=== PATIENT | female | born 1970 | race Caucasian/White ===

== ENCOUNTER 2023-05-03 09:01 | Outpatient (AMB) | payer OTHER, MEDICAID, SELFPAY ==
--- NOTE | 2023-05-03 09:03 | MHC.PC.OV ---
Vital Signs 05/03/23 09:07 Height 5 ft 5 in Weight 155 lb 2 oz BMI 25.8 BP 120/70 Blood Pressure Location Rt brachial Position Sitting Pulse 80 Pulse Source Pulse Oximeter Pulse Oximetry (%) 97 Oxygen Delivery Method Room Air Intake Visit Reasons: New patient-Diabetes Intake Note: Patient is a new patient here to establish care for Diabetes, Cholesterol, GERD, History of kindney stone, Depression and Anxiety. Transferring care from [facility]. Medical records have not been requested and have not received. Cardiac Cath Technician Required: Yes Cardiac Cath Technician Language: Site Lead Name: Naila (niabiel) Information Interpreted: non-clinical & clinical Manager Program Management: Present Accompanied by: Nephew or Niece Allergies No Known Allergies Allergy (Verified 05/03/23 11:57) Medication List - Last Reconciled 05/03/23 by WARREN Lin atorvastatin 40 mg PO DAILY clonazepam 0.5 mg PO Q6H dapagliflozin propanediol (Farxiga) 10 mg PO DAILY dulaglutide (Trulicity) 0.75 mg (0.5 mL) subcut QWEEK gabapentin 300 mg PO TID gemfibrozil 600 mg PO DAILY insulin aspart U-100 (Novolog FlexPen U-100 Insulin aspart) 30 units (0.3 mL) subcut TID insulin glargine (Lantus Solostar U-100 Insulin) 60 units (0.6 mL) subcut QPM metformin ER 500 mg PO DAILY pantoprazole 40 mg PO DAILY sertraline 50 mg PO DAILY tamsulosin 0.4 mg PO BEDTIME Tobacco use date assessed: 05/03/23 Dental Screening Dental Screen Date: 05/03/23 Did you have a dental visit in the last 12 months?: Yes Did you have a dental problem in the last 6 months where you did not have access to dental care?: No Was dental information given to patient?: Patient has dentist HPI HPI Comments History of Present Illness Details 52-year-old new patient presents today to establish care. Past medical history significant for type 2 diabetes mellitus, hyperlipidemia, peripheral neuropathy, generalized anxiety disorder, depression and GERD. Patient presents today with her adult niece who assisted in interpretation. Declined certified medical and scientific illustrator. Patient reports currently follows with psychiatry at [facility]; Rciki English is her medication provider and she also has a counselor Ivis Prater. Patient currently stable on sertraline 50 mg daily and clonazepam 0.5mg q6hr prn. Colonoscopy: Never completed, agrees to referral. Mammogram: Normal, 02/07/23 Eye exam: Referral entered [facility] Medical History (Updated 05/03/23 @ 09:35 by WARREN Lin) Nephrolithiasis Surgical History History of eye surgery History of cholecystectomy Family History (Updated 05/03/23 @ 09:30 by WARREN Lin) Mother Diabetes Breast cancer Father Diabetes Hypertension Prostate cancer Social History (Updated 05/03/23 @ 09:05 by DEANNA Vilchis) Housing: House (with niece) Alcohol intake: never Patient Tobacco Use Status: Never used Tobacco e-Cigarette/Vaping Use: Never Used Second Hand Smoke Exposure: No service: No Current occupational status: disabled Cognitive needs: No Hearing needs: No Vision needs: No Questionnaire PHQ-9 Over the last 2 weeks, how often have you been bothered by any of the following problems? 1. Little interest or pleasure in doing things: not at all 2. Feeling down, depressed, or hopeless: several days 3. Trouble falling or staying asleep, or sleeping too much: several days 4. Feeling tired or having little energy: several days 5. Poor appetite or overeating: not at all 6. Feeling bad about yourself - or that you are a failure or have let yourself or your family down: not at all 7. Trouble concentrating on things, such as reading the newspaper or watching television: not at all 8. Moving or speaking so slowly that other people could have noticed. Or the opposite - being so fidgety or restless that you have been moving around a lot more than usual: not at all 9. Thoughts that you would be better off or of hurting yourself in some way: not at all Total score: 3 Depression Screening Interpretation: Positive Depression Screening Follow-up: In treatment Depression Screening Done: Yes 15330 - PHQ-9 Billing: Yes Source: Developed by Drs. Ricky Castillo, Mai Aguilar, Huey Castillo and colleagues, with an educational bryon from [employer]. Thrive Questionnaire Date Thrive assessed: 05/03/23 I am a: Patient What is your living situation today?: I have a steady place to live Within the past 12 months, did the food you bought not last and you didn't have the money to get more?: Never true Within the past 12 months, did you worry whether your food would run out before you got money to buy more?: Never true Do you have trouble paying for medicines?: No Do you have trouble getting transportation to medical appointments?: No Do you have trouble paying your heating and electricity bill?: No Do you have trouble taking care of your child, family member or friend?: No Do you have trouble with day-to-day activities such as bathing, preparing meals, shopping, managing finances, etc.?: No Are you currently unemployed and looking for a job?: No Are you interested in more education?: No Currently or been in a relationship where the following occur: no concerns reported AUDIT C Alcohol Use Questionnaire (AUDIT-C) 1. How often do you have a drink containing alcohol?: Never Total Score: 0 JOSE MANUEL-7 AMB Questionnaire JOSE MANUEL-7 Date JOSE MANUEL - 7 assessed: 05/03/23 Feeling nervous, anxious, or on edge: 3 = Nearly every day Not being able to stop or control worryin = Not at all Worrying too much about different things: 0 = Not at all Trouble relaxin = Several days Being so restless that it is hard to sit still: 1 = Several days Becoming easily annoyed or irritable: 1 = Several days Feeling afraid as if something awful might happen: 0 = Not at all Total JOSE MANUEL-7 score (0-4 normal; 5-9 mild; 10-14 moderate; 15-21 severe): 6 Source: Developed by Drs. Ricky Castillo, Mai Aguilar, Huey Castillo and colleagues, with an educational bryon from [employer]. JOSE MANUEL-7 Assessment Billing JOSE MANUEL-7 Assessment Tool: JOSE MANUEL-7 Assessment 23560 Review of Systems Const Denies chills, Denies fatigue, Denies fever(s) and Denies poor appetite Eyes Denies no additional complaints ENT Reports Normal hearing present Card Denies chest pain, Denies syncope, Denies rapid heart rate and Denies dyspnea Resp Denies cough and Denies dyspnea GI Denies change in stool character, Denies constipation, Denies diarrhea, Denies nausea and Denies vomiting Denies urinary frequency, Denies dysuria and Denies urinary urgency Neuro Reports Normal hearing present, Denies confusion and Denies syncope Psych Denies confusion Endo Denies fatigue Physical exam (Primary Care) Vital Signs: Last Vital Signs Pulse 80 05/03/23 09:07 BP 120/70 05/03/23 09:07 Pulse Ox 97 05/03/23 09:07 Oxygen Delivery Method Room Air 05/03/23 09:07 BMI result Body Mass Index 25.8 Tobacco/Smoking Status: Tobacco use Status Tobacco use date assessed 05/03/23 05/03/23 09:06 Patient Tobacco Use Status Never used Tobacco 05/03/23 09:06 e-Cigarette/Vaping Use Never Used 05/03/23 09:06 PHQ-9: PHQ-9 Score PHQ-9: Total score 3 05/03/23 12:00 Depression Screening Interpretation: Positive Depression Screening Follow-up: In treatment Thrive Assessment: Date of Thrive Assessment Date Thrive assessed 05/03/23 05/03/23 09:06 Currently or been in a relationship where the following occur: no concerns reported Const General: No confusion Orientation/consciousness: No confusion HENMT Head: Yes normocephalic and Yes atraumatic Eyes Conjunctivae: conjunctivae normal Chest Chest palpation & inspection: normal inspection of the chest Resp Effort & Inspection: normal respiratory effort Auscultation: clear to auscultation bilaterally, no crackles, no rhonchi and no wheezes Cardio Rate: regular rate Rhythm: regular rhythm Heart sounds: S1 normal heart sound present and S2 normal heart sound present GI Inspection: Yes normal to inspection Neuro General: No confusion Cranial nerves: Yes Normal hearing present Extrem General: No edema Office Procedures Flu Questionnaire Does the patient have a severe egg allergy?: No Does the patient have severe life threatening allergies?: No Does the patient have a fever or illness today?: No Has the patient ever had Guillain-[place]u Syndrome?: No Has the patient ever had any past reaction to a flu shot?: No Immunizations flu vacc [id number] 6mos up(PF) 60 mcg(15 mcgx4)/0.5 mL IM syringe Performing Provider: WARREN Lin [facility] Administered by: DEANNA Vilchis on 05/03/23 09:23 Dose Route Admin Location Dispensed Lot Number Expiration Date NDC Cloth Mender 0.5 mL IM Right Deltoid 0.5 mL [id number] 01/22/24 23426-895-11 [employer] VIS Given Date VIS Provided VIS Publication Date 05/03/23 Single Vaccine 21 Eligibility Eligibility Date Funding Source Not [facility] Eligible 05/03/23 Private Assessment and Plan Assessment & Plan (1) Type 2 diabetes mellitus: Code(s): E11.9 - Type 2 diabetes mellitus without complications Plan: Continue on Trulicity 0.75 mg q.week, NovoLog 30 units t.i.d. and Lantus 60 units q.p.m., metformin 500 mg daily. Hemoglobin A1c and fasting glucose ordered. Patient educated to decrease the amount of carbohydrate intake such as pasta, bread, rice and potatoes are all sugar in addition to the sweet stuff. Remember that fruits are good but they also have sugar. (2) Hypercholesteremia: Code(s): E78.00 - Pure hypercholesterolemia, unspecified Plan: Continue on atorvastatin 40 mg daily. ?Avoid fried foods, chicken skin, eggs, butter,margarine, pastries and?? red meat. (3) Depression: Code(s): F32.A - Depression, unspecified Plan: Continue to follow with psychiatry and counselor. Continue on current medications. (4) Generalized anxiety disorder: Code(s): F41.1 - Generalized anxiety disorder Plan: Continue to follow with psychiatry and counselor. Continue on current medications. (5) Peripheral neuropathy: Code(s): G62.9 - Polyneuropathy, unspecified Plan: Patient reports on gabapentin 300 mg t.i.d. for this Will verify previous records from [place] once received. Plan Follow-up in 3 months Orders: Orders Influenza [id number] Immunization Today Z23 - Encounter for immunization Comprehensive [place]. Panel Fast Today E11.9 - Type 2 diabetes mellitus without complications Lipid Panel Today E78.00 - Pure hypercholesterolemia, unspecified TSH reflex Free T4 Today Z13.29 - Encounter for screening for other suspected endocrine disorder Vitamin D 25-OH Total Today Z13.21 - Encounter for screening for nutritional disorder Hemoglobin A1c Today E11.9 - Type 2 diabetes mellitus without complications Complete Blood Count Auto Diff Today Z13.0 - Encounter for screening for diseases of the blood and blood-forming organs and certain disorders involving the immune mechanism Referrals Gastroenterology Referral Z12.11 - Encounter for screening for malignant neoplasm of colon Ophthalmology Referral E11.9 - Type 2 diabetes mellitus without complications, Z01.00 - Encounter for examination of eyes and vision without abnormal findings Medications: New gemfibrozil 600 mg PO DAILY 30 tabs 0RF insulin aspart U-100 (Novolog FlexPen U-100 Insulin aspart) 30 units (0.3 mL) subcut TID 15 mL 0RF dapagliflozin propanediol (Farxiga) 10 mg PO DAILY 30 tabs 0RF atorvastatin 40 mg PO DAILY 90 tabs 0RF pantoprazole 40 mg PO DAILY 30 ea 0RF insulin glargine (Lantus Solostar U-100 Insulin) 60 units (0.6 mL) subcut QPM 15 mL 0RF tamsulosin 0.4 mg PO BEDTIME 30 caps 0RF metformin ER 500 mg PO DAILY 30 tabs 0RF gabapentin 300 mg PO TID 90 caps 0RF clonazepam 0.5 mg PO Q6H 90 tabs 0RF sertraline 50 mg PO DAILY 30 tabs 0RF dulaglutide (Trulicity) 0.75 mg (0.5 mL) subcut QWEEK 2 mL 0RF Coding Level of Care Code New Pt Level 4 (97135) Diagnoses Type 2 diabetes mellitus E11.9 Hypercholesteremia E78.00 Depression F32.A Generalized anxiety disorder F41.1 Peripheral neuropathy G62.9 Additional Codes JOSE MANUEL-7 Assessment Billing - JOSE MANUEL-7 Assessment Tool: JOSE MANUEL-7 Assessment 29521 ([id number])
[2023-05-03 09:07] VITALS: BP 120/70; PULSE 80; O2SAT 97; BMI 25.8
== END 2023-05-03 09:46 | disposition home or self-care (01) ==
PROVIDERS: PCP Nurse Practitioner Family; Visit Provider Nurse Practitioner Family
DX: E11.42 Type 2 diabetes mellitus with diabetic polyneuropathy (principal); E78.00 Pure hypercholesterolemia, unspecified; F32.A Depression, unspecified; F41.1 Generalized anxiety disorder; Z23 Encounter for immunization; G62.9 Polyneuropathy, unspecified
CPT/HCPCS: 90471; 90686; 99204

== ENCOUNTER 2023-05-05 08:59 | Outpatient (REF) | payer OTHER, MEDICAID, SELFPAY ==
[2023-05-05 09:10] LABS: MANUAL DIFF FLAG NO
[2023-05-05 09:24] LABS: Basophils Absolute Auto 0.1 X10*3/uL (0.0-0.2); Basophils Percent Auto 1.1 % (0-2); Eosinophils Absolute Auto 0.2 X10*3/uL (0.0-0.4); Eosinophils Percent Auto 3.9 % (0-4); Hematocrit 40.8 % (37.0-47.0); Hemoglobin 13.2 g/dl (12.0-16.0); Imm Gran Abs Auto 0.01 X10*3/uL (0.00-0.03); Imm Gran Pct Auto 0.2 % (0.0-0.4); Lymphocytes Absolute Auto 1.9 X10*3/uL (1.2-4.9); Lymphocytes Percent Auto 31.3 % (20-40); Mean Corpuscular HGB Conc 32.4 g/dl (31.0-35.0); Mean Corpuscular Hemoglobin 30.6 pg (27.0-33.0); Mean Corpuscular Volume 94.7 fL (80.0-98.0); Mean Platelet Volume 10.9 fL (9.4-12.3); Monocytes Absolute Auto 0.8 X10*3/uL (0.1-1.2); Monocytes Percent Auto 12.8 % (2-11); Neutrophils Absolute Auto 3.1 x10*3/uL (2.0-8.3); Neutrophils Percent Auto 50.7 % (45-73); Platelet Count 258 X10*3/uL (160-400); Red Blood Count 4.31 X10*6/uL (4.20-5.50); Red Cell Distribution Width 14.1 % (11.0-16.0); White Blood Count 6.2 X10*3/uL (4.8-10.8)
[2023-05-05 09:38] LABS: Estimated Average Glucose 140 mg/dL; Hemoglobin A1c % 6.5 % (<6.0)
[2023-05-05 10:03] LABS: Alanine Aminotransferase 11 U/L (0-31); Albumin Level 3.9 g/dL (3.5-5.0); Alkaline Phosphatase 83 U/L (39-117); Anion Gap 12 (12-20); Aspartate Amino Transferase 15 U/L (5-31); Bilirubin Total 0.2 mg/dL (0.0-1.0); Blood Urea Nitrogen 8 mg/dL (9-16); Calcium 9.1 mg/dL (8.4-10.2); Carbon Dioxide 26 mmol/L (22-29); Chloride 107 mmol/L (96-108); Cholesterol 153 mg/dL (<200); Estimated Glomerular Filt Rate > 60; Glucose Fasting 116 mg/dL (60-99); HDL Cholesterol 56 mg/dL (>40); LDL Cholesterol Calculated 80 mg/dL (<100); Potassium 3.9 mmol/L (3.3-5.1); Sodium 141 mmol/L (135-145); Triglycerides 86 mg/dL (<150)
[2023-05-05 10:24] LABS: TSH reflex Free T4 1.85 uIU/mL (0.32-4.0); Vitamin D 25-OH Total 42.7 ng/mL (>30)
== END 2023-05-05 09:00 | disposition home or self-care (01) ==
LOC: HO.LAB 08:59
PROVIDERS: PCP Nurse Practitioner Family; Visit Provider Nurse Practitioner Family
DX: E78.00 Pure hypercholesterolemia, unspecified (principal); E11.9 Type 2 diabetes mellitus without complications; Z13.21 Encounter for screening for nutritional disorder; Z13.0 Encounter for screening for diseases of the blood and blood-forming organs and certain disorders involving the immune mechanism; Z13.29 Encounter for screening for other suspected endocrine disorder
CPT/HCPCS: 36415; 80053; 80061; 82306; 83036; 84443; 85025

== ENCOUNTER 2023-05-25 13:39 | Outpatient (AMB) | payer OTHER, MEDICAID, SELFPAY ==
--- NOTE | 2023-05-25 13:41 | A.OFFVIS_ITS ---
Intake Vital Signs 05/25/23 13:48 Height 5 ft 6 in Weight 156 lb BMI 25.2 BP 121/62 Blood Pressure Location Lt brachial Position Sitting Pulse 58 Intake Visit Reasons: Colonoscopy Screening Intake Note: Patient new consult for 2nd pre colonoscopy screening. Patient cc: chronic constipation with some blood and acid reflex on and off. Professor Of Sociology Required: Yes Professor Of Sociology Name: Praneeth [phone] Accompanied by: Self / Same As Patient Allergies No Known Allergies Allergy (Verified 05/25/23 13:45) Medication List - Last Reconciled 05/25/23 by Evita Tarango PA-C atorvastatin 40 mg PO DAILY clonazepam 0.5 mg PO Q6H dapagliflozin propanediol (Farxiga) 10 mg PO DAILY dulaglutide (Trulicity) 0.75 mg (0.5 mL) subcut QWEEK gabapentin 300 mg PO TID gemfibrozil 600 mg PO DAILY insulin aspart U-100 (Novolog FlexPen U-100 Insulin aspart) 30 units (0.3 mL) subcut TID insulin glargine (Lantus Solostar U-100 Insulin) 60 units (0.6 mL) subcut QPM metformin ER 500 mg PO DAILY pantoprazole 40 mg PO DAILY sertraline 50 mg PO DAILY tamsulosin 0.4 mg PO BEDTIME HPI HPI Comments History of Present Illness Details A 52 y/o female referred for screening colonoscopy- she had a colonoscopy and EGD in [place] about 10 years ago Constipation for years - intermittent rectal bleeding -seems to have increased however she had been constipated Reasons acid reflux seem to have been better however as well has become worse. Unable to identify anything specific Her appetite is fairly good She has no nausea, vomiting hematemesis fever or chills PFSH Medical History Nephrolithiasis Surgical History History of esophagogastroduodenoscopy (EGD) Hx of colonoscopy History of eye surgery History of cholecystectomy Family History Mother Diabetes Breast cancer Father Diabetes Hypertension Prostate cancer Social History Housing: House (with niece) Alcohol intake: never Patient Tobacco Use Status: Never used Tobacco e-Cigarette/Vaping Use: Never Used Second Hand Smoke Exposure: No service: No Current occupational status: disabled Cognitive needs: No Hearing needs: No Vision needs: No Review of Systems Const All systems reviewed & are unremarkable except as noted in HPI and below Card Denies chest pain and Denies dyspnea Resp Denies dyspnea GI Denies abdominal pain Physical Exam Vital Signs: Last Vital Signs Pulse 58 05/25/23 13:48 BP 121/62 05/25/23 13:48 BMI result Body Mass Index 25.2 Const General: cooperative, healthy appearing, comfortable and no acute distress Orientation/consciousness: patient oriented x3 Limitations: language barrier Eyes Sclerae: sclerae normal Resp Effort & Inspection: normal respiratory effort and able to speak in complete sentences Auscultation: clear to auscultation bilaterally, no rales, no rhonchi and no wheezes Cardio Rate: regular rate Rhythm: regular rhythm Heart sounds: S1 normal heart sound present and S2 normal heart sound present GI Palpation (GI): Soft to palpation and nontender Auscultation: normal bowel sounds Skin General skin exam: no rashes or lesions noted Neuro General: patient oriented x3 Extrem General: Yes full ROM Psych Appearance: grossly normal and well kempt Mental Status: mental status grossly normal Speech and movement: Normal speech and movement present Affect: normal affect Attitude: cooperative Thought process: Normal thought process present Thought content: Normal thought content present Assessment & Plan Assessment & Plan (1) Rectal bleeding: Comment: May be hemorrhoidal for referred Code(s): K62.5 - Hemorrhage of anus and rectum Plan: Colonoscopy High-fiber diet Bowel regimen (2) GERD (gastroesophageal reflux disease): Comment: No early satiety Continue PPI Code(s): K21.9 - Gastro-esophageal reflux disease without esophagitis Plan: Continue PPI Reflux precautions EGD rule out PUD, nonulcer dyspepsia, esophagitis other endoscopic findings to account for her symptoms Plan EGD/ colonoscopy MiraLax Gatorade prep - Mondays (must stop at least 7 days<) Genesis before 1/2 dose insulin Day of no DM meds Orders: Orders EGD/[place] Combo - GI Use Only Today K21.9 - Gastro-esophageal reflux disease without esophagitis, K62.5 - Hemorrhage of anus and rectum Medications: New polyethylene glycol 3350 (Miralax) 17 grams PO DAILY 510 grams 6RF bisacodyl (Dulcolax (bisacodyl)) Day before procedure, prep day Take 4 tablets by mouth upon awakening followed by large glass of water 20 mg (4 x 5 mg) PO ONCE 1 day 4 tabs 0RF colonoscopy prep Z12.11 - Encounter for screening for malignant neoplasm of colon polyethylene glycol 3350 (Miralax) Take as directed by mouth the day before your procedure. 238 grams PO ONCE 1 day PRN 238 grams 0RF laxative effect docusate sodium (Colace) 200 mg (2 x 100 mg) PO BEDTIME 60 caps 5RF hydrocortisone 2.5% (Proctosol HC) 1 appl [place] BEDTIME PRN 30 grams 3RF hemorrhoids Patient Instructions: EGD/ colon HFD- Consistent bowel regimen Avoid straining Hydrocortisone cream Reflux precautions reviewed Continue PPI Reviewed medications No major barriers to understanding were identified Assisted by automotive parts interpreter Coding Level of Care Code New Pt Level 4 (04432) Diagnoses Rectal bleeding K62.5 GERD (gastroesophageal reflux disease) K21.9 Time Spent (min) 30 Comment [id number]
[2023-05-25 13:48] VITALS: BP 121/62; PULSE 58; BMI 25.2
== END 2023-05-25 15:44 | disposition home or self-care (01) ==
PROVIDERS: PCP Nurse Practitioner Family; Visit Provider Physician Assistant
DX: K62.5 Hemorrhage of anus and rectum (principal); K21.9 Gastro-esophageal reflux disease without esophagitis
CPT/HCPCS: 99204

== ENCOUNTER → 2023-05-25 13:39 | Outpatient (BNVA) | payer OTHER, MEDICAID, SELFPAY | PROVIDERS: PCP Nurse Practitioner Family; Visit Provider Physician Assistant ==

== ENCOUNTER 2023-08-10 10:13 | Outpatient (AMB) | payer OTHER, MEDICAID, SELFPAY ==
--- NOTE | 2023-08-10 10:43 | A.OFFVIS_ITS ---
Intake Intake Visit Reasons: Kidney Stones Intake Note: New Patient presents for initial visit for kidney stones Urology Medications: none Blood Thinner: none Engineering Mathematician Required: Yes Engineering Mathematician Name: KIARA MCDANIELSILVIA Accompanied by: Self / Same As Patient Allergies No Known Allergies Allergy (Verified 08/10/23 11:12) Medication List - Last Reconciled 08/10/23 by WARREN Hansen- atorvastatin 40 mg PO DAILY bisacodyl (Dulcolax (bisacodyl)) 20 mg (4 x 5 mg) PO ONCE 1 day clonazepam 0.5 mg PO Q6H dapagliflozin propanediol (Farxiga) 10 mg PO DAILY docusate sodium (Colace) 200 mg (2 x 100 mg) PO BEDTIME dulaglutide (Trulicity) 0.75 mg (0.5 mL) subcut QWEEK gabapentin 300 mg PO TID gemfibrozil 600 mg PO DAILY hydrocortisone 2.5% (Proctosol HC) 1 appl PA BEDTIME PRN insulin aspart U-100 (Novolog FlexPen U-100 Insulin aspart) 30 units (0.3 mL) subcut TID insulin glargine (Lantus Solostar U-100 Insulin) 60 units (0.6 mL) subcut QPM metformin ER 500 mg PO DAILY pantoprazole 40 mg PO DAILY polyethylene glycol 3350 (Miralax) 238 grams PO ONCE PRN 1 day polyethylene glycol 3350 (Miralax) 17 grams PO DAILY sertraline 50 mg PO DAILY HPI HPI Comments History of Present Illness Details Sammy is a very pleasant 52-year-old Armenian-speaking female patient of Dr. Acosta. She has a past medical history of Diabetes, Cholesterol, GERD, nephrolithiasis, Depression and Anxiety. She presents to the office today as a new patient for nephrolithiasis. In discussion with the patient today she reports to be doing and feeling well. She reports a previous history of nephrolithiasis in [place] requiring surgical intervention with lithotripsy as well as stent placement. She currently denies any bothersome urinary issues or concerns. When asked she denies urinary urgency, urinary frequency, incontinence, nocturia, hematuria, dysuria, foul smelling urine, changes to urinary stream, flank pain, fever, and or chills. She is happy with her current voiding parameters. In office urinalysis results reviewed with the patient today. Negative leukocytes positive nitrates. Patient currently denies any UTI like symptoms however does report having experienced intermittent episodes of dysuria over a month ago. When asked she reports to be drinking plenty of water daily. Discussed obtaining renal ultrasound for further assessment evaluation. She otherwise offers no other issues or concerns at this time. [facility] Medical History Nephrolithiasis Surgical History History of esophagogastroduodenoscopy (EGD) Hx of colonoscopy History of eye surgery History of cholecystectomy Family History Mother Diabetes Breast cancer Father Diabetes Hypertension Prostate cancer Social History Housing: House (with niece) Alcohol intake: never Patient Tobacco Use Status: Never used Tobacco e-Cigarette/Vaping Use: Never Used Second Hand Smoke Exposure: No service: No Current occupational status: disabled Cognitive needs: No Hearing needs: No Vision needs: No Review of Systems Const Reports no additional complaints Eyes Reports no additional complaints ENT Reports no additional complaints Card Reports as per HPI Resp Reports no additional complaints GI Reports as per HPI Reports as per HPI Musc Reports no additional complaints Neuro Reports no additional complaints Psych Reports as per HPI Endo Reports as per HPI Ramiro/Lymph Reports no additional complaints Aller/Immun Reports no additional complaints Physical Exam Const General: cooperative, healthy appearing, comfortable, no acute distress, well developed, alert and awake Orientation/consciousness: patient oriented x3 Limitations: no limitations HEENT Head: Yes normal to inspection, Yes normocephalic and Yes atraumatic Ears: hearing grossly normal bilaterally Eyes General: appearance normal, both eyes and all related structures Neck Neck: Yes normal visual inspection and Yes trachea midline Chest Chest palpation & inspection: normal inspection of the chest Resp Effort & Inspection: normal respiratory effort and able to speak in complete sentences Cardio Rate: regular rate GI Inspection: Yes normal to inspection General: Yes no CVA tenderness Back/Spine/Pelvis Back: no CVA tenderness Skin General skin exam: no rashes or lesions noted Neuro General: patient oriented x3 Extrem General: Yes normal to inspection Psych Appearance: grossly normal and well kempt Mental Status: mental status grossly normal Speech and movement: Normal speech and movement present and Clear speech present Affect: normal affect Attitude: cooperative Thought process: Normal thought process present Thought content: Normal thought content present Insight: Fair insight present (Psych) Judgement: Fair judgement present (Psych) Results AMB Urinalysis, Automated UA Leukoctes 0 Toi/uL Last Edit by GleeMaster on 08/10/23 11:16 UA Nitrite Positive Last Edit by GleeMaster on 08/10/23 11:16 UA Urobilinogen 0.2 mg/dL Last Edit by GleeMaster on 08/10/23 11:16 UA Protein 0 mg/dL Last Edit by GleeMaster on 08/10/23 11:16 UA pH 6.0 Last Edit by GleeMaster on 08/10/23 11:16 UA Blood 0 Shadi/uL Last Edit by GleeMaster on 08/10/23 11:16 UA Specific [place] 1.015 Last Edit by GleeMaster on 08/10/23 11:16 UA Ketone Negative Last Edit by GleeMaster on 08/10/23 11:16 UA Bilirubin 0 mg/dL Last Edit by GleeMaster on 08/10/23 11:16 UA Glucose 1000 mg/dL Last Edit by GleeMaster on 08/10/23 11:16 Results Reviewed Results Reviewed: Laboratory Last Values Urine pH (Auto) 6.0 08/10/23 10:51 Specific [place] (Auto) 1.015 08/10/23 10:51 Urine Protein (Auto) 0 mg/dL 08/10/23 10:51 Glucose (UA)(Auto) 1000 mg/dL 08/10/23 10:51 Urine Ketones (Auto) Negative 08/10/23 10:51 Urine Blood (Auto) 0 Shadi/uL 08/10/23 10:51 Urine Nitrite (Auto) Positive 08/10/23 10:51 Urine Bilirubin (Auto) 0 mg/dL 08/10/23 10:51 Urine Urobilinogen (Auto) 0.2 mg/dL 08/10/23 10:51 Leukocyte Esterase (Auto) 0 Toi/uL 08/10/23 10:51 Assessment & Plan Assessment & Plan (1) Nephrolithiasis: Code(s): N20.0 - Calculus of kidney Plan In office urinalysis results reviewed with the patient today; will send for urine culture; will await results for treatment if necessary. Patient currently denies any bothersome urinary issues or concerns. Will obtain renal ultrasound for further assessment evaluation. Discussed at length potential causes of nephrolithiasis Discussed, educated, and stressed the importance of continuing to drink plenty of water daily. Discussed adding 1 oz of lemon juice to water daily. Discussed near future metabolic workup to include 24 hour urine and labs Discussed at length importance of managing diabetes for improvement in overall health and well being. Follow-up in 1-2 months with imaging to be completed prior; or sooner with any issues, concerns, and or questions. Orders: Orders AMB Urinalysis Automated Today Z13.9 - Encounter for screening, unspecified US renal BI Today N20.0 - Calculus of kidney Urine Culture Today N39.0 - Urinary tract infection, site not specified Patient Instructions: The patient had an opportunity to ask questions regarding the treatment plan. All questions were answered. Physical exam, labs, and imaging were discussed and reviewed in detail. As well as risks, benefits, and discussion of treatment choices. No major barriers to understanding were identified. The patient expressed understanding and agreement with the above treatment plan. The patient was made aware they should contact our office by phone for worsening of their current condition, the appearance of new symptoms, or with any questions or concerns. Compliance is encouraged with any medications and follow up testing that is ordered. It is a privilege to be allowed the opportunity to participate in? your urological care.? Again, if you have any questions or concerns If you have any questions or concerns please do not hesitate to contact me. The office is [phone]. This note is constructed using voice recognition software. While every effort has been made to ensure accuracy fire support man errors may have been included. Yours sincerely, LUISA Hansen Coding Level of Care Code New Pt Level 3 (40842) Diagnoses Nephrolithiasis N20.0
== END 2023-08-10 11:27 | disposition home or self-care (01) ==
PROVIDERS: PCP Nurse Practitioner Family; Visit Provider Nurse Practitioner Family
DX: N20.0 Calculus of kidney (principal); Z13.9 Encounter for screening, unspecified
CPT/HCPCS: 99203

== ENCOUNTER 2023-08-10 10:13 | Outpatient (REF) | payer OTHER, MEDICAID, SELFPAY | END 2023-08-10 10:14 | disposition home or self-care (01) | LOC: HO.LNP 10:13 | PROVIDERS: PCP Nurse Practitioner Family; Visit Provider Nurse Practitioner Family | DX: N20.0 Calculus of kidney (principal); N39.0 Urinary tract infection, site not specified | CPT/HCPCS: 81003; 87086; 87088; 87186 ==

== ENCOUNTER 2023-09-08 09:33 | Outpatient (AMB) | payer OTHER, MEDICAID, SELFPAY ==
[2023-09-08 09:35] VITALS: BMI 25.2
--- NOTE | 2023-09-08 09:35 | A.OFFVIS_ITS ---
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 Patient reports that she has had pain for about 5-6 years now. She reports that she fell from a chair while at work, When she went to sit down that chair tipped backwards landing. She was seen while in [facility] and Recieved physical therapy which was not helpful. Pain is bilateral, and radiates down the right arm . Her pain in the spine originates in the c-Spine and travels down the spine, she was recommended to do a block but she was unable to do this due to DM. Her DM is not under control Hx of bilateral Carpal Tunnel Release in 2010 [employer] Required: Yes Allergies No Known Allergies Allergy (Verified 08/10/23 11:12) Medication List - Last Reconciled 09/08/23 by Corrie Tran MD atorvastatin 40 mg PO DAILY bisacodyl (Dulcolax (bisacodyl)) 20 mg (4 x 5 mg) PO ONCE 1 day clonazepam 0.5 mg PO Q6H dapagliflozin propanediol (Farxiga) 10 mg PO DAILY docusate sodium (Colace) 200 mg (2 x 100 mg) PO BEDTIME dulaglutide (Trulicity) 0.75 mg (0.5 mL) subcut QWEEK gabapentin 300 mg PO TID gemfibrozil 600 mg PO DAILY hydrocortisone 2.5% (Proctosol HC) 1 appl IN BEDTIME PRN insulin aspart U-100 (Novolog FlexPen U-100 Insulin aspart) 30 units (0.3 mL) subcut TID insulin glargine (Lantus Solostar U-100 Insulin) 60 units (0.6 mL) subcut QPM metformin ER 500 mg PO DAILY nitrofurantoin macrocrystal 100 mg PO BID 10 days pantoprazole 40 mg PO DAILY polyethylene glycol 3350 (Miralax) 238 grams PO ONCE PRN 1 day polyethylene glycol 3350 (Miralax) 17 grams PO DAILY sertraline 50 mg PO DAILY HPI HPI Comments History of Present Illness Details Past medical history significant for type 2 diabetes mellitus, hyperlipidemia, peripheral neuropathy, generalized anxiety disorder, depression, GERD, retroverted uterus and fibroid. New to [place], came from [place]. History of chronic lower back and neck pain. Patient wants to prioritize discussion/treatment of lower back pain as this is her main concern. Lower back pain, midline then spreads to both legs. Random episodes. On occasion, it feels like legs would give out. After further questioning, pain does go down to her feet, especially when standing/walking. Reports numbness on her legs, but not on the feet. No bladder/bowel changes. Treatment done so far: Advil therapy - in [place], 2020 injection was recommended in [place] but patient did not have any because of poorly controlled DM at that time [facility] Medical History (Updated 09/08/23 @ 10:07 by Corrie Tran MD) Lumbar spinal stenosis Lumbar disc herniation Chronic back pain Nephrolithiasis Surgical History History of esophagogastroduodenoscopy (EGD) Hx of colonoscopy History of eye surgery History of cholecystectomy Family History Mother Diabetes Breast cancer Father Diabetes Hypertension Prostate cancer Social History Housing: House (with niece) Alcohol intake: never Patient Tobacco Use Status: Never used Tobacco e-Cigarette/Vaping Use: Never Used Second Hand Smoke Exposure: No service: No Current occupational status: disabled Cognitive needs: No Hearing needs: No Vision needs: No Review of Systems Const All systems reviewed & are unremarkable except as noted in HPI and below Physical Exam Vital Signs: BMI result Body Mass Index 25.2 Constitutional: Patient appears to be in no acute distress, well nourished and well developed. Patient was appropriately conversant and oriented. Good historian. MSK: No specific abnormalities found on inspection of the spine and all extremities. Tender lumbar paraspinals and SI joint, right worse than left. Lumbar ROM was full. Bilateral hip, knee and ankle ROM WNL. No ligamentous laxity or crepitance. No increased effusion. Straight-leg raising test negative. FABERE test negative. Strength is 5/5 in all muscle groups tested. No increased tone noted. Neurological: Neurologic examination of the upper and lower extremities was nonfocal with intact sensation, muscle stretch reflexes and without focal motor deficits . Metzger?s negative bilaterally. Babinski was down going bilaterally. Clonus was negative. Gait is non-antalgic without loss of balance. Results Reviewed Results Reviewed: I independently reviewed the results of the following: She brought films of lumbar MRI 2018 and 2020 done at [place] - moderate spinal stenosis L4-5 with disc herniation? Report called this pseudobulge . Reports says stable from 2019 to 2020. I reviewed records from the following: PCP Transferred [facility] ? [facility] notes reviewed US 02/13: Retroverted uterus with small uterine fibroid. Assessment & Plan Assessment & Plan (1) Chronic back pain: Code(s): M54.9 - Dorsalgia, unspecified; G89.29 - Other chronic pain Qualifiers: Back pain location: low back pain Back pain laterality: bilateral Sciatica presence: with sciatica Sciatica laterality: bilateral sciatica Qualified Code(s): M54.42 - Lumbago with sciatica, left side; M54.41 - Lumbago with sciatica, right side; G89.29 - Other chronic pain (2) Lumbar disc herniation: Code(s): M51.26 - Other intervertebral disc displacement, lumbar region (3) Lumbar spinal stenosis: Code(s): M48.061 - Spinal stenosis, lumbar region without neurogenic claudication Qualifiers: Neurogenic claudication status: with neurogenic claudication Qualified Code(s): M48.062 - Spinal stenosis, lumbar region with neurogenic claudication Plan Chronic back pain with history of lumbar disc herniation, L4-5, seen on past MRIs done at [place]. No signs of lumbar myelopathy or neurologic deficits on exam today. Discussed treatment options for chronic back pain. We agreed on starting her on physical therapy. Referral placed. We will consider repeat imaging or referral to pain management after she has undergone course of PT, if not better. Assessment and plan discussed with patient, and patient was agreeable. All questions were answered thoroughly. Follow-up 6 weeks. Corrie Tran MD, MARY Board Certified, [place] [employer] and Rehabilitation (ABPMR) Board Certified, [place] Board of Electrodiagnostic Medicine (ABEM) Orders: Orders PT Evaluation and Treatment Today G89.29 - Other chronic pain, M48.061 - Spinal stenosis, lumbar region without neurogenic claudication, M51.26 - Other intervertebral disc displacement, lumbar region, M54.9 - Dorsalgia, unspecified Coding Level of Care Code New Pt Level 4 (20436) Diagnoses Chronic bilateral low back pain with bilateral sciatica M54.42; M54.41; G89.29 Back pain location: low back pain Back pain laterality: bilateral Sciatica presence: with sciatica Sciatica laterality: bilateral sciatica Lumbar disc herniation M51.26 Spinal stenosis of lumbar region with neurogenic claudication M48.062 Neurogenic claudication status: with neurogenic claudication
== END 2023-09-08 10:07 | disposition home or self-care (01) ==
PROVIDERS: PCP Nurse Practitioner Family; Visit Provider Physical Medicine & Rehabilitation
DX: M54.42 Lumbago with sciatica, left side (principal); M54.41 Lumbago with sciatica, right side; G89.29 Other chronic pain; M51.26 Other intervertebral disc displacement, lumbar region; M48.062 Spinal stenosis, lumbar region with neurogenic claudication
CPT/HCPCS: 99204

== ENCOUNTER → 2023-09-08 09:33 | Outpatient (BNVA) | payer OTHER, MEDICAID, SELFPAY | PROVIDERS: PCP Nurse Practitioner Family; Visit Provider Physical Medicine & Rehabilitation ==

== ENCOUNTER 2023-09-14 12:47 | Outpatient (REF) | payer OTHER, MEDICAID, SELFPAY ==
--- NOTE | ~2023-09-14 | US_ITS ---
EXAMINATION: US RETROPERITONEAL LIMITED (RENAL ONLY) CLINICAL INFORMATION: Calculus of kidney. COMPARISON: None available. TECHNIQUE: Real-time imaging of the kidneys. FINDINGS: RIGHT KIDNEY: 10.2 x 5.51 x 5.05 cm (SAG x AP x TRV). The kidney is normal in size, contour, and echogenicity. Renal cortical thickness is normal. There is an echogenic focus measuring 9 mm in the mid right kidney with shadowing, consistent with a nonobstructing calculus. No focal parenchymal lesions or hydronephrosis. LEFT KIDNEY: 11.3 x 5.39 x 4.24 cm (SAG x AP x TRV). The kidney is normal in size, contour, and echogenicity. Renal cortical thickness is normal. No calculi or focal parenchymal lesions. No hydronephrosis. US/US renal BI IMPRESSION: Nonobstructing 9 mm right renal calculus.
== END 2023-09-14 12:48 | disposition home or self-care (01) ==
LOC: HO.US 12:47
PROVIDERS: PCP Nurse Practitioner Family; Visit Provider Nurse Practitioner Family
DX: N20.0 Calculus of kidney (principal)
CPT/HCPCS: 76775

== ENCOUNTER 2023-09-21 10:03 | Day surgery (SDC) | payer OTHER, MEDICAID, SELFPAY ==
--- NOTE | 2023-09-20 12:10 | HO.ANESPROP2 ---
Documented by User: Nancy Arambula NP 09/20/23 12:12 HPI - Anesthesia Eval Consult details Narrative: 52yo F for Upper Endoscopy and Colonoscopy Anesthesia Pre-Procedure Meds Is the patient on any of the following meds?: Dulaglutide (Trulicity) and Any other SGL-1 drugs or drugs that delay gastric emptying (dapagliflozin) PMFSH Active Problems Active Problems: All Active Problems (Updated 09/08/23 @ 10:07 by Corrie Tran MD) Lumbar spinal stenosis (Acute) Lumbar disc herniation (Acute) Chronic back pain (Acute) Cervical cancer screening (Acute) Nephrolithiasis (Acute) Rectal bleeding (Acute) Hypercholesteremia (Acute) Depression (Acute) Generalized anxiety disorder (Acute) Peripheral neuropathy (Acute) Type 2 diabetes mellitus (Acute) GERD (gastroesophageal reflux disease) (Acute) Past Medical History Medical History Hypercholesteremia Depression Generalized anxiety disorder Peripheral neuropathy Type 2 diabetes mellitus GERD (gastroesophageal reflux disease) Lumbar spinal stenosis Lumbar disc herniation Chronic back pain Nephrolithiasis Family History Family History Mother Diabetes Breast cancer Father Diabetes Hypertension Prostate cancer Surgical History Surgical History History of esophagogastroduodenoscopy (EGD) Hx of colonoscopy History of eye surgery History of cholecystectomy Social History Social History Housing: House (with niece) Alcohol intake: never Patient Tobacco Use Status: Never used Tobacco e-Cigarette/Vaping Use: Never Used Second Hand Smoke Exposure: No Advance Directives: No Advance Directives Information Provided: Yes service: No Current occupational status: disabled Cognitive needs: No Hearing needs: No Vision needs: No Meds Allergies Allergy/AdvReac Type Severity Reaction Status Date / Time No Known Allergies Allergy Verified 08/10/23 11:12 Exam Pertinent Lab Results Pertinent Lab Results: Laboratory Tests 05/05/23 09:09 WBC 6.2 Hgb 13.2 Hct 40.8 Plt Count 258 Sodium 141 Potassium 3.9 Chloride 107 Carbon Dioxide 26 BUN 8 L Creatinine 0.73 Assessment and Plan Assessment Anesthesia Assessment: Chart Reviewed Documented by User: Araceli Hawkins MD 09/21/23 10:38 HPI - Anesthesia Eval Anesthesia Pre-Procedure Meds If Yes to any meds - educate patient: Pt education - increased risk of aspiration and Pt education - possibility of cancelled proc at provider's discretion PMFSH Past Medical History Medical History Hypercholesteremia Depression Generalized anxiety disorder Peripheral neuropathy Type 2 diabetes mellitus GERD (gastroesophageal reflux disease) Lumbar spinal stenosis Lumbar disc herniation Chronic back pain Nephrolithiasis Family History Family History Mother Diabetes Breast cancer Father Diabetes Hypertension Prostate cancer Family history of problems with anesthesia: No Surgical History Surgical History History of esophagogastroduodenoscopy (EGD) Hx of colonoscopy History of eye surgery History of cholecystectomy History of Problems with Anesthesia: No Social History Social History Housing: House (with niece) Alcohol intake: never Patient Tobacco Use Status: Never used Tobacco e-Cigarette/Vaping Use: Never Used Second Hand Smoke Exposure: No Advance Directives: No Advance Directives Information Provided: Yes service: No Current occupational status: disabled Cognitive needs: No Hearing needs: No Vision needs: No Meds Allergies Allergy/AdvReac Type Severity Reaction Status Date / Time No Known Allergies Allergy Verified 08/10/23 11:12 Exam Airway Mallampati Class: II TM Dist: >3cm Neck ROM: Full Heart: rrr Lungs: cta Assessment and Plan Assessment Anesthesia Assessment: Anesthesia Plan Discussed Final Anesthetic Review Family History of Problems with Anesthesia: No History of Problems with Anesthesia: No NPO: Yes ASA Class: III Final Preanesthetic Review: No Changes in Pt Med Stat, Meds/Allgs Chart Reviewed, Consent Obtained/Reviewed and Anes Risks/Benef Reviewed Patient Risk: Intermediate Procedure Risk: Low Anesthetic Plan Anesthetic Plan: MAC: Disposition: Standard PACU
--- NOTE | 2023-09-21 10:33 | MHC.SHP ---
Pre-Procedural Eval Section A - 24 Hr Update-Section A only Date of Service: 09/21/23 Section B - Complete if H&P > 30 days Chief Complaint: rectal bleeding,gerd Relevant Family History (Specify if Yes): No Relevant Social History: None Present Medications: see Short Stay Collaborative assessment Medical History: Significant History (Hypercholesteremia Depression Generalized anxiety disorder Peripheral neuropathy Type 2 diabetes mellitus GERD (gastroesophageal reflux disease) Lumbar spinal stenosis Lumbar disc herniation Chronic back pain Nephrolithiasis) History of Previous Operations: Relevant previous surgery/procedure and date(s) (esophagogastroduodenoscopy (EGD) Hx of colonoscopy History of eye surgery History of cholecystectomy) Allergies: Allergies Allergy/AdvReac Type Severity Reaction Status Date / Time No Known Allergies Allergy Verified 08/10/23 11:12 Review of Systems Sugical H&P ROS: Negative: Constitution, Cardiovascular, Respiratory, Neurological, Psychiatric, Hem-Onc, Allergic/Immunologic, Gastrointestinal, Genitourinary, Musculoskeletal, Integumentary, Endocrine and Eyes/Ears/Nose/Throat Exam Surgical H&P Exam: Normal: HEENT, Normal: Heart, Normal: Lungs, Normal: Extremities, Normal: Abdomen, Normal: Skin and Normal: Neurological Plan Diagnosis/Plan: Unchanged I have reviewed the history and physical and performed a pertinent physical examination on my patient. No changes have occurred unless specified. Time Spent With Patient Time: Total time managing care of this patient today ____ minutes.
[2023-09-21 10:57] VITALS: BMI 27.0
[2023-09-21 11:00] VITALS: BP 115/71; PULSE 50; RESP 18; TEMP 36.1; O2SAT 96
[2023-09-21 11:35] LABS: Glucose, Whole Blood 89 mg/dL (60-115)
[2023-09-21 12:11] VITALS: BP 104/61; PULSE 82; RESP 16; TEMP 36.3; O2SAT 98
--- NOTE | 2023-09-21 12:11 | P.OP_ITS ---
Operative Note Operative Note Date of Service: 09/21/23 Narrative: Operative Information Procedure Description: EGD, Colonoscopy Indication: Anesthesia: MAC FLEXIBLE TRANSORAL UPPER GASTROINTESTINAL ENDOSCOPY AND COLONOSCOPY PROCEDURE NOTE UPPER ENDOSCOPY Consent: Indications for the procedure and potential complications of bleeding, perforation, reaction to medications and missed diagnosis were discussed with the patient and informed consent was obtained. Instrument: Olympus GIF H 190 J mid size upper endoscope Monitoring: Vital signs and clinical assessment, continuous EKG monitoring, Pulse oximetry, Carbon Dioxide monitoring and blood pressure monitoring were done throughout the procedure. Procedure: The patient was placed in the left lateral decubitis position and pre-procedure medications were administered and a bite block was placed. The endoscope was inserted into the mouth and advanced under direct vision to the third part of duodenum. A careful inspection was made as the upper endoscope was withdrawn including a retroflexed examination of the proximal stomach; Findings and interventions are described below. Findings: Larynx:normal Esophagus: GE junction at 38 cm, diaphragm hiatus at 38 cm, bx taken from GEj and distal esophagus --mild esophagitis noted Stomach: Mild erythema. Biopsies were obtained. Grade 2 flap valve on retroflexed examination of the cardia. Duodenum: Normal bulb and descending duodenum, Intervention: Biopsies as noted above COLONOSCOPY Instrument: Olympus variable stiffness pediatric scope 190L Colonoscopy Monitoring: Vital signs and clinical assessment, continuous EKG monitoring, Pulse oximetry, Carbon Dioxide monitoring and blood pressure monitoring were done throughout the procedure. Colon withdrawal time was 12 minutes. Procedure: The patient was placed in the left lateral decubitis position and pre-procedure medications were administered. After a digital rectal examination of the ano-rectum, the video colonoscope was inserted into the rectum and advanced through the colon to the cecum/TI. The colonoscope was slowly withdrawn in a retrograde panoramic fashion and the colon mucosa was carefully examined including a retroflexed view of the rectum. Findings and interventions are described below. Procedure Difficulty:moderate pressure applied Findings: Terminal Ileum-normal Cecum:normal Ascending Colon: normal Transverse Colon -normal Descending Colon: 8-10 mm sessile polyp removed with cold snare Sigmoid Colon: normal Rectum: Retroflexion with small internal hemorrhoids, grade I Anorectum - normal Colon preparation: [place] Bowel Preparation Scale Right colon; 2 Transverse colon: 2 Left colon; 1-2 (0 = Unprepared colon segment with mucosa not seen due to solid stool that can not be cleared. 1 = Portion of mucosa of the colon segment seen, but other areas of the colon segment not well seen due to staining, residual stool and/or opaque liquid. 2 = Minor amount of residual staining, small fragments of stool and/or opaque liquid, but mucosa of colon segment seen well. 3 = Entire mucosa of colon segment seen well with no residual staining, small fragments of stool or opaque liquid) Impression and Post Procedure Diagnosis: Endoscopy Findings: esophagitis gastritis Colonoscopy Findings: polyp internal hemorrhoids Plan: Await Pathology results Repeat Colonoscopy in 5- years due to fair prep left side or earlier if clinically indicated High fiber diet leaflet avoid straining at stool, epsom salts and sitz bath, anusol supps or cream reflux precautions, cont with PPI, if H pylori pos then treat Above findings were reviewed with the patient and relevant handouts were provided if indicated.
[2023-09-21 12:26] VITALS: BP 116/67; PULSE 67; RESP 16; TEMP 36.3; O2SAT 100
--- NOTE | 2023-09-21 12:47 | PC.NURSE ---
medical laboratory manager present for all discharge instructions.
== END 2023-09-21 12:51 | disposition home or self-care (01) ==
PROVIDERS: PCP Nurse Practitioner Family; Visit Provider Internal Medicine Gastroenterology
PROC: (CPT 45385; principal; 2023-09-21 12:50)
DX: K62.5 Hemorrhage of anus and rectum (principal); D12.4 Benign neoplasm of descending colon; K64.0 First degree hemorrhoids; K21.9 Gastro-esophageal reflux disease without esophagitis; K29.50 Unspecified chronic gastritis without bleeding; K20.80 Other esophagitis without bleeding; K44.9 Diaphragmatic hernia without obstruction or gangrene; E78.00 Pure hypercholesterolemia, unspecified; E11.40 Type 2 diabetes mellitus with diabetic neuropathy, unspecified; Z79.4 Long term (current) use of insulin; Z79.84 Long term (current) use of oral hypoglycemic drugs; Z79.899 Other long term (current) drug therapy
CPT/HCPCS: 45385; 43239; 82947; 88305; 88313; 88342; J1596; J2704

== ENCOUNTER → 2023-09-21 10:03 | Outpatient (BNV) | payer OTHER, MEDICAID, SELFPAY | PROVIDERS: PCP Nurse Practitioner Family; Visit Provider Internal Medicine Gastroenterology | DX: K20.90 Esophagitis, unspecified without bleeding (principal); K29.70 Gastritis, unspecified, without bleeding; K63.5 Polyp of colon; K64.8 Other hemorrhoids | CPT/HCPCS: 43239; 45385 ==

== ENCOUNTER 2023-09-23 11:26 | Outpatient (REF) | payer OTHER, MEDICAID, SELFPAY ==
[2023-09-24 05:28] LABS: CT PCR NOT DETECTED (Not Detect.); NG PCR NOT DETECTED (Not Detect.)
[2023-09-24 13:48] LABS: BV Int Neg Control Negative (Negative); BV Int Pos Control Positive (Positive)
[2023-09-29 11:39] LABS: HPV mRNA E6/E7 rflx Not Detected (Not Detected)
== END 2023-09-23 11:27 | disposition home or self-care (01) ==
LOC: HO.LAB 11:26
PROVIDERS: PCP Nurse Practitioner Family; Visit Provider Advanced Practice Midwife
DX: Z01.419 Encounter for gynecological examination (general) (routine) without abnormal findings (principal); Z11.51 Encounter for screening for human papillomavirus (HPV); Z20.2 Contact with and (suspected) exposure to infections with a predominantly sexual mode of transmission
CPT/HCPCS: 0353U; 87480; 87510; 87624; 87660; 88142

== ENCOUNTER 2023-09-23 11:26 | Outpatient (AMB) | payer OTHER, MEDICAID, SELFPAY ==
[2023-09-23 11:27] VITALS: BP 128/74; BMI 26.1
--- NOTE | 2023-09-23 11:27 | MHC.OFFVIS ---
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 Information Interpreted: clinical only Motion Picture Operator: Motion Picture Operator Present Allergies No Known Allergies Allergy (Verified 09/23/23 11:37) Medication List - Last Reconciled 09/23/23 by Medina Jackson CNM atorvastatin 40 mg PO DAILY bisacodyl (Dulcolax (bisacodyl)) 20 mg (4 x 5 mg) PO ONCE 1 day clonazepam 0.5 mg PO Q6H dapagliflozin propanediol (Farxiga) 10 mg PO DAILY docusate sodium (Colace) 200 mg (2 x 100 mg) PO BEDTIME dulaglutide (Trulicity) 0.75 mg (0.5 mL) subcut QWEEK gabapentin 300 mg PO TID gemfibrozil 600 mg PO DAILY hydrocortisone 2.5% (Proctosol HC) 1 appl [place] BEDTIME PRN insulin aspart U-100 (Novolog FlexPen U-100 Insulin aspart) 30 units (0.3 mL) subcut TID insulin glargine (Lantus Solostar U-100 Insulin) 60 units (0.6 mL) subcut QPM metformin ER 500 mg PO DAILY nitrofurantoin macrocrystal 100 mg PO BID 10 days pantoprazole 40 mg PO DAILY sertraline 50 mg PO DAILY Is last menstrual period known: Yes Last menstrual period: 10/10/23 Do you need a note to return to daycare/school/sports/work: No HPI 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 She never had the at all it was because of some issue that he had. She isn't sexually active right now but she did have sex in May so she would like to get checked for STDs including blood work. She is diabetic but says her blood sugars are very well controlled now. She used to be much heavier weighing about 280+ lb and she lost the weight by eating healthy and healthy activities and she is now 162 today. She sees Hilda Boudreaux and Bill Disla for primary care. She said her last fasting blood work was in July. She had a mammogram done last year at [place] she was going for care at [place] before but now she is transferring all of her care up here. [facility] Medical History (Updated 09/23/23 @ 12:09 by Medina Jackson CNM) Type 2 diabetes mellitus Hypercholesteremia Depression Generalized anxiety disorder Peripheral neuropathy GERD (gastroesophageal reflux disease) Lumbar spinal stenosis Lumbar disc herniation Chronic back pain Nephrolithiasis Surgical History History of esophagogastroduodenoscopy (EGD) Hx of colonoscopy History of eye surgery History of cholecystectomy Family History Mother Diabetes Breast cancer Father Diabetes Hypertension Prostate cancer Social History Housing: House (with niece) Alcohol intake: never Patient Tobacco Use Status: Never used Tobacco e-Cigarette/Vaping Use: Never Used Second Hand Smoke Exposure: No service: No Current occupational status: disabled Cognitive needs: No Hearing needs: No Vision needs: No Female Reproductive History Menstrual Age of Menarche: 14 Duration of menses: 6-7 days Date of last menstrual period: 10/10/23 control method: none Total pregnancies: 0 History of abnormal pap smear: No (unknown date ?) Physical Exam Vital Signs: Last Vital Signs BP 128/74 09/23/23 11:27 BMI result Body Mass Index 26.1 Const General: healthy appearing, comfortable, no acute distress, well developed and alert Nutritional Appearance: average body habitus Orientation/consciousness: patient oriented x3 Limitations: no limitations HEENT Head: Yes normocephalic Neck Neck: Yes normal visual inspection Chest Chest palpation & inspection: normal inspection of the chest Breast/axilla inspection: normal inspection of the breasts and normal inspection of the axillae Breast/axilla palpation: normal palpation of the breasts and normal palpation of the axillae Resp Effort & Inspection: normal respiratory effort GI Inspection: Yes normal to inspection, No Abdominal wall edema and No distended Palpation (GI): Soft to palpation and nontender Other: Patient has fold under pannus that she tells me is not a scar but is a marker from when she was much much heavier. Redundant tissue noted vaginally cervix is nulliparous pink smooth healthy appearing with normal clear mucus uterus small midposition to retroverted nontender mobile good tone with Kegel General: Yes bladder normal to palpation External Female Exam: normal external appearance and normal appearance of the urethra Speculum Exam - Vagina: normal appearance of the vagina, normal palpation and normal vaginal discharge Speculum Exam - Cervix: normal appearance of the cervix, normal palpation and nontender Bimanual exam- vagina & uterus: normal bimanual exam, normal palpation, uterine size normal, bladder normal to palpation, consistency normal, normal palpation, uterine mobility normal, uterine shape normal, No Cervical tenderness present, non-tender and no cervical motion tenderness Bimanual Exam- Adnexa, other: normal adnexae, no masses, normal and No adnexal tenderness Neuro General: patient oriented x3 Assessment & Plan Assessment & Plan (1) Cervical cancer screening: Code(s): Z12.4 - Encounter for screening for malignant neoplasm of cervix (2) Encounter for screening examination for sexually transmitted disease: Code(s): Z11.3 - Encounter for screening for infections with a predominantly sexual mode of transmission (3) Well woman exam with routine gynecological exam: Code(s): Z01.419 - Encounter for gynecological examination (general) (routine) without abnormal findings (4) Type 2 diabetes mellitus: Code(s): E11.9 - Type 2 diabetes mellitus without complications Plan -----Discussed in this visit the following: healthy balanced diet, regular and consistent exercise, getting recommended health screens, doing the best she can for her particular health concerns, kegel exercises, pap smear screening and followup recommendations, mammography screening and SBE, normal changes in cycles in her life stage--- . She will talk with her primary about following up with mammograms yearly in our system since she is moved here now. She is doing much better with her diabetes and she is happy about that. She is on disability for back problems and nerves. Reviewed safer sex and the challenges and risks of an unintended at her age and with her health challenges and she is aware. She knows about condoms and she would use them. She will be starting more exercise now in the spring. She had a colonoscopy and endoscopy procedure done very recently as well. She has 3 brothers in [place] and niece or nephew here but she is endeavoring to be independent. Go to the lab now for testing for STIs. Orders: Orders Hepatitis C Antibody Today Z01.419 - Encounter for gynecological examination (general) (routine) without abnormal findings, Z11.3 - Encounter for screening for infections with a predominantly sexual mode of transmission, Z12.4 - Encounter for screening for malignant neoplasm of cervix HIV Ab/Ag Today Z01.419 - Encounter for gynecological examination (general) (routine) without abnormal findings, Z11.3 - Encounter for screening for infections with a predominantly sexual mode of transmission, Z12.4 - Encounter for screening for malignant neoplasm of cervix Syphilis Screen Today Z01.419 - Encounter for gynecological examination (general) (routine) without abnormal findings, Z11.3 - Encounter for screening for infections with a predominantly sexual mode of transmission, Z12.4 - Encounter for screening for malignant neoplasm of cervix Hepatitis B Surface Antigen Today Z01.419 - Encounter for gynecological examination (general) (routine) without abnormal findings, Z11.3 - Encounter for screening for infections with a predominantly sexual mode of transmission, Z12.4 - Encounter for screening for malignant neoplasm of cervix Coding Level of Care Code New Pt Prev Care 40-64y(37298) Diagnoses Cervical cancer screening Z12.4 Encounter for screening examination for sexually transmitted disease Z11.3 Well woman exam with routine gynecological exam Z01.419 Type 2 diabetes mellitus E11.9
== END 2023-09-23 12:23 | disposition home or self-care (01) ==
LOC: HO.HWSM 11:27
PROVIDERS: PCP Nurse Practitioner Family; Visit Provider Advanced Practice Midwife
DX: Z01.419 Encounter for gynecological examination (general) (routine) without abnormal findings (principal); E11.9 Type 2 diabetes mellitus without complications
CPT/HCPCS: 99386

== ENCOUNTER 2023-09-23 12:12 | Outpatient (REF) | payer OTHER, MEDICAID, SELFPAY ==
[2023-09-24 03:40] LABS: Syphilis Screen Nonreactive (Nonreactive)
[2023-09-24 04:04] LABS: HBsAGNum1 0.39 S/CO (0.00-0.99); HIV AB/AG Nonreactive (Nonreactive); HIV Num 1 0.07 S/CO (0.00-0.99); Hepatitis B Surface Antigen Negative (Negative); ~HepC Num1 0.26 S/CO (0.00-0.79); ~Hepatitis C Antibody Nonreactive (Nonreactive)
== END 2023-09-23 12:13 | disposition home or self-care (01) ==
LOC: HO.HHCL 12:12
PROVIDERS: Visit Provider Advanced Practice Midwife
DX: Z01.419 Encounter for gynecological examination (general) (routine) without abnormal findings (principal); Z11.4 Encounter for screening for human immunodeficiency virus [HIV]; Z20.2 Contact with and (suspected) exposure to infections with a predominantly sexual mode of transmission
CPT/HCPCS: 36415; 86780; 86803; 87340; 87389

== ENCOUNTER 2023-10-18 12:29 | Outpatient (REF) | payer OTHER, MEDICAID, SELFPAY | END 2023-10-18 12:30 | disposition home or self-care (01) | LOC: HO.LNP 12:29 | PROVIDERS: PCP Nurse Practitioner Family; Visit Provider Physician Assistant | DX: A04.8 Other specified bacterial intestinal infections (principal); D12.6 Benign neoplasm of colon, unspecified; K29.70 Gastritis, unspecified, without bleeding | CPT/HCPCS: 87338 ==

== ENCOUNTER 2023-10-18 12:29 | Outpatient (AMB) | payer OTHER, MEDICAID, SELFPAY ==
[2023-10-18 12:34] VITALS: BP 112/67; PULSE 69; BMI 25.6
--- NOTE | 2023-10-18 12:34 | A.OFFVIS_ITS ---
Intake Vital Signs 10/18/23 12:34 Height 5 ft 6 in Weight 158 lb 11.725 oz BMI 25.6 BP 112/67 Blood Pressure Location Lt brachial Position Sitting Pulse 69 Intake Visit Reasons: s/P Double; Dr. Reyes Intake Note: Patient in office today in follow up of EGD and Colonoscopy on 09/21/23. CC: Patient reports doing well and denies having any GI symptoms today. Truck Caterer Required: Yes Truck Caterer Name: Yeison [id number] Accompanied by: Self / Same As Patient Allergies No Known Allergies Allergy (Verified 10/18/23 12:38) Medication List - Last Reconciled 10/18/23 by Evita Tarango PA-C atorvastatin 40 mg PO DAILY clonazepam 0.5 mg PO Q6H dapagliflozin propanediol (Farxiga) 10 mg PO DAILY docusate sodium (Colace) 200 mg (2 x 100 mg) PO BEDTIME dulaglutide (Trulicity) 0.75 mg (0.5 mL) subcut QWEEK gabapentin 300 mg PO TID gemfibrozil 600 mg PO DAILY hydrocortisone 2.5% (Proctosol HC) 1 appl [place] BEDTIME PRN insulin aspart U-100 (Novolog FlexPen U-100 Insulin aspart) 30 units (0.3 mL) subcut TID insulin glargine (Lantus Solostar U-100 Insulin) 60 units (0.6 mL) subcut QPM metformin ER 500 mg PO DAILY nitrofurantoin macrocrystal 100 mg PO BID 10 days pantoprazole 40 mg PO DAILY sertraline 100 mg PO DAILY tamsulosin 0.4 mg PO DAILY HPI HPI Comments History of Present Illness Details 53-year-old female follows up after rece nt EGD and colonoscopy with Dr. Reyes. She presents today, she tolerated procedures well. Appetite is good Bowels are normal Pantoprazole 40 mg for heartburn typically cover symptoms Discussed procedure report, pathology and recommendation- To include H pylori breath test-she will need to discontinue PPI and begin Carafate for 2 weeks PFSH Medical History (Updated 10/18/23 @ 12:49 by Evita Tarango PA-C) Type 2 diabetes mellitus Hypercholesteremia Depression Generalized anxiety disorder Peripheral neuropathy GERD (gastroesophageal reflux disease) Lumbar spinal stenosis Lumbar disc herniation Chronic back pain Nephrolithiasis Surgical History History of esophagogastroduodenoscopy (EGD) Hx of colonoscopy History of eye surgery History of cholecystectomy Family History Mother Diabetes Breast cancer Father Diabetes Hypertension Prostate cancer Social History Housing: House Alcohol intake: never Patient Tobacco Use Status: Never used Tobacco e-Cigarette/Vaping Use: Never Used Second Hand Smoke Exposure: No service: No Current occupational status: disabled Cognitive needs: No Hearing needs: No Vision needs: No Female Reproductive History Menstrual Age of Menarche: 14 Review of Systems Const All systems reviewed & are unremarkable except as noted in HPI and below Physical Exam Vital Signs: Last Vital Signs Pulse 69 10/18/23 12:34 BP 112/67 10/18/23 12:34 BMI result Body Mass Index 25.6 Const General: cooperative, healthy appearing, comfortable and no acute distress Orientation/consciousness: patient oriented x3 Limitations: language barrier Resp Effort & Inspection: normal respiratory effort and able to speak in complete s entences Neuro General: patient oriented x3 Extrem General: Yes full ROM Psych Appearance: grossly normal and well kempt Mental Status: mental status grossly normal Speech and movement: Normal speech and movement present and Clear speech present Affect: normal affect Attitude: cooperative Thought process: Normal thought process present Thought content: Normal thought content present Insight: Good insight present (Psych) Judgement: Good judgement present (Psych) Results Reviewed Results Reviewed: Impression and Post Procedure Diagnosis: Endoscopy Findings: esophagitis gastritis Colonoscopy Findings: polyp internal hemorrhoids Plan: Await Pathology results Repeat Colonoscopy in 5- years due to fair prep left side or earlier if clinically indicated High fiber diet leaflet avoid straining at stool, epsom salts and sitz bath, anusol supps or cream reflux precautions, cont with PPI, if H pylori pos then treat bernie: Gabby Ozuna Age/Sex: 52/F Attending: Toña Reyes MD : 1970 Submitted by: Toña Reyes MD Copies to: Hilda Acosta MR #: [id number] Status: [facility] Collected: 09/21/23 Location: [facility] Received: 09/21/23 Diagnosis A. Stomach, biopsy: Antral-type mucosa with moderate chronic inactive inflamm ation; no Helicobacter organisms seen. B. GE junction, biopsy: - Cardiac-type mucosa with moderate chronic inactive inflammation; no intestinal metaplasia seen. - Squamous mucosa within normal limits. C. Esophagus, distal, biopsy: Squamous epithelium within normal limits; no inflammation seen. D. Colon, descending, polypectomy: Fragments of tubular adenoma; negative for high-grade dysplasia or carcinoma. Clinical History Pre-Op Dx: Rectal bleeding, GERD Post-Op Dx: Gastritis, esophagitis, internal hemorrhoids, polyp Microscopic Description A-D. Microscopic sections examined. No metaplastic changes are seen, supported by AB/PAS stains (A, B); no Helicobacter organisms are seen, supported by H. pylori immunostain (A). Material Received A. Stomach B. GE junction C. Distal esophagus D. Descending colon polyp Gross Description Received in 4 parts. Part A: Received in formalin labeled ?stomach? are 2 root irregular tissue fragments each measuring 0.3 cm, submitted in toto in a cassette labeled A. Part B: Received in formalin labeled ?GE junction? are 2 root irregular tissue fragments measuring 0.15 and 0.25 cm, submitted in toto in a cassette labeled B. Part C: Received in formalin labeled ?distal esophagus? are 2 pale, rodriguez-white irregular tissue fragments Patient: Gabby Ozuna Age/Sex: 52/F MR#: [id number] Page 1 of 2 Assessment & Plan Assessment & Plan (1) Sessile serrated polyp of colon: Code(s): D12.6 - Benign neoplasm of colon, unspecified Plan: Repeat asymptomatic colonoscopy 5 years All first-degree relatives should begin screening at age 40 (2) Gastritis: Code(s): K29.70 - Gastritis, unspecified, without bleeding Plan: HP stool antigen- Plan Discontinue pantoprazole 40 for 2 weeks Will take Carafate 2 weeks submit stool for H pylori Orders: Orders H pylori Ag Stool 2 Weeks A04.8 - Other specified bacterial intestinal infections Medications: New sucralfate 1 g (10 mL) PO QIDACHS 4 weeks 420 mL 0RF Patient Instructions: Will get stool antigen-HP- 2 week-if positive tx- will d/c ppi and take carafate interim She will call 48 hours after submit for result 5 year repeat colon for polyp All first-degree relatives should begin screening at age 40 Coding Level of Care Code Est Pt Level 3 (83342) Diagnoses Sessile serrated polyp of colon D12.6 Gastritis K29.70 Time Spent (min) 30 Comment [id number]
== END 2023-10-18 15:16 | disposition home or self-care (01) ==
PROVIDERS: PCP Nurse Practitioner Family; Visit Provider Physician Assistant
DX: D12.6 Benign neoplasm of colon, unspecified (principal); K29.70 Gastritis, unspecified, without bleeding
CPT/HCPCS: 99213

== ENCOUNTER 2023-10-20 10:53 | Outpatient (AMB) | payer OTHER, MEDICAID, SELFPAY ==
[2023-10-20 11:04] VITALS: BMI 25.5
--- NOTE | 2023-10-20 11:04 | A.OFFVIS_ITS ---
Intake Vital Signs 10/20/23 11:04 Height 5 ft 6 in Weight 158 lb BMI 25.5 Intake Visit Reasons: OV-Back and neck pain Intake Note: Gabby 53 yr old female presents today for her follow up visit for her chronic neck and low back pain with bilateral sciatica s/p therapy. States her pain is better. Reports P.T has not reached out to her for appointment. 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: Yes Allergies No Known Allergies Allergy (Verified 10/20/23 11:14) Medication List - Last Reconciled 10/20/23 by Corrie Tran MD atorvastatin 40 mg PO DAILY clonazepam 0.5 mg PO Q6H dapagliflozin propanediol (Farxiga) 10 mg PO DAILY docusate sodium (Colace) 200 mg (2 x 100 mg) PO BEDTIME dulaglutide (Trulicity) 0.75 mg (0.5 mL) subcut QWEEK gabapentin 300 mg PO TID gemfibrozil 600 mg PO DAILY hydrocortisone 2.5% (Proctosol HC) 1 appl [place] BEDTIME PRN insulin aspart U-100 (Novolog FlexPen U-100 Insulin aspart) 30 units (0.3 mL) subcut TID insulin glargine (Lantus Solostar U-100 Insulin) 60 units (0.6 mL) subcut QPM metformin ER 500 mg PO DAILY nitrofurantoin macrocrystal 100 mg PO BID 10 days pantoprazole 40 mg PO DAILY sertraline 100 mg PO DAILY sucralfate 1 g (10 mL) PO QIDACHS 4 weeks tamsulosin 0.4 mg PO DAILY HPI HPI Comments History of Present Illness Details Past medical history significant for type 2 diabetes mellitus, hyperlipidemia, peripheral neuropathy, generalized anxiety disorder, depression, GERD, retroverted uterus and fibroid. New to [place], came from [place]. History of chronic lower back and neck pain. Patient wants to prioritize discussion/treatment of lower back pain as this is her main concern. Lower back pain, midline then spreads to both legs. Random episodes. On occasion, it feels like legs would give out. After further questioning, pain does go down to her feet, especially when standing/walking. Reports numbness on her legs, but not on the feet. No bladder/bowel changes. Treatment done so far: Advil therapy - in [place], 2020 injection was recommended in [place] but patient did not have any because of poorly controlled DM at that time I referred her to PT but says they never called her. Says despite that she's been feeling a little bit better. Trying not to use too much force. Every day pain, but tolerable. No bladder/bowel changes. No weakness or falling. Neck pain is also ok . Occasional hand numbness only but not constant. Denies weakness. Does not drop things. [facility] Medical History (Updated 10/20/23 @ 12:31 by Corrie Tran MD) Type 2 diabetes mellitus Hypercholesteremia Depression Generalized anxiety disorder Peripheral neuropathy GERD (gastroesophageal reflux disease) Lumbar spinal stenosis Lumbar disc herniation Chronic back pain Nephrolithiasis Surgical History History of esophagogastroduodenoscopy (EGD) Hx of colonoscopy History of eye surgery History of cholecystectomy Family History Mother Diabetes Breast cancer Father Diabetes Hypertension Prostate cancer Social History Housing: House Alcohol intake: never Patient Tobacco Use Status: Never used Tobacco e-Cigarette/Vaping Use: Never Used Second Hand Smoke Exposure: No service: No Current occupational status: disabled Cognitive needs: No Hearing needs: No Vision needs: No Female Reproductive History Menstrual Age of Menarche: 14 Physical Exam Vital Signs: BMI result Body Mass Index 25.5 Results Reviewed Results Reviewed: She brought films of lumbar MRI 2018 and 2020 done at [place] - moderate spinal stenosis L4-5 with disc herniation? Report called this pseudobulge . Reports says stable from 2019 to 2020. I reviewed records from the following: PCP Transferred from [facility] ? [facility] notes reviewed [place] 02/13: Retroverted uterus with small uterine fibroid. Assessment & Plan Assessment & Plan (1) Chronic back pain: Code(s): M54.9 - Dorsalgia, unspecified; G89.29 - Other chronic pain Qualifiers: Back pain laterality: bilateral Back pain location: low back pain Sciatica laterality: bilateral sciatica Sciatica presence: with sciatica Qualified Code(s): M54.42 - Lumbago with sciatica, left side; M54.41 - Lumbago with sciatica, right side; G89.29 - Other chronic pain (2) Lumbar disc herniation: Code(s): M51.26 - Other intervertebral disc displacement, lumbar region (3) Lumbar spinal stenosis: Code(s): M48.061 - Spinal stenosis, lumbar region without neurogenic claudication Qualifiers: Neurogenic claudication status: with neurogenic claudication Qualified Code(s): M48.062 - Spinal stenosis, lumbar region with neurogenic claudication (4) Right knee pain: Code(s): M25.561 - Pain in right knee Qualifiers: Chronicity: acute Qualified Code(s): M25.561 - Pain in right knee Plan Chronic back pain with history of lumbar disc herniation, L4-5, seen on past MRIs done at [place]. No signs of lumbar myelopathy or neurologic deficits on exam today. She is feeling better. She will watch this for now and let me know if gets worse. We're not ordering any further imaging or injections at this time. She mentions discomfort, not pain, on right knee. No swelling or redness. Xray today to evaluate for DJD. Assessment and plan discussed with patient, and patient was agreeable. All questions were answered thoroughly. Follow-up 6 months for back/neck pain. Can sooner for knee pain, depending on xray result. Corrie Tran MD, MARY Board Certified, [place] [employer] and [employer] (ABPMR) Board Certified, [place] [employer] Electro[employer] (ABEM) Orders: Orders XR knee RT 3V Today M25.561 - Pain in right knee Coding Level of Care Code Est Pt Level 3 (64204) Diagnoses Chronic bilateral low back pain with bilateral sciatica M54.42; M54.41; G89.29 Back pain laterality: bilateral Back pain location: low back pain Sciatica laterality: bilateral sciatica Sciatica presence: with sciatica Lumbar disc herniation M51.26 Spinal stenosis of lumbar region with neurogenic claudication M48.062 Neurogenic claudication status: with neurogenic claudication Acute pain of right knee M25.561 Chronicity: acute
== END 2023-10-20 11:45 | disposition home or self-care (01) ==
PROVIDERS: PCP Nurse Practitioner Family; Visit Provider Physical Medicine & Rehabilitation
DX: M54.42 Lumbago with sciatica, left side (principal); M54.41 Lumbago with sciatica, right side; G89.29 Other chronic pain; M51.26 Other intervertebral disc displacement, lumbar region; M48.062 Spinal stenosis, lumbar region with neurogenic claudication; M25.561 Pain in right knee
CPT/HCPCS: 99213

== ENCOUNTER 2023-10-20 10:53 | Outpatient (REF) | payer OTHER, MEDICAID, SELFPAY ==
--- NOTE | ~2023-10-20 | XR_ITS ---
EXAMINATION: XR KNEE, RIGHT CLINICAL INFORMATION: Knee pain COMPARISON: None available. TECHNIQUE: Four views of the right knee. FINDINGS: No fracture or joint effusion. Alignment is anatomic. Joint spaces are maintained. No abnormal soft tissue calcification. Dense vascular calcifications. XR/XR knee RT 3V IMPRESSION: No acute bony pathology. Dense vascular calcifications, noteworthy given patient's stated age.
== END 2023-10-20 10:54 | disposition home or self-care (01) ==
LOC: HO.HOSX 10:53
PROVIDERS: PCP Nurse Practitioner Family; Visit Provider Physical Medicine & Rehabilitation
DX: M25.561 Pain in right knee (principal); M54.41 Lumbago with sciatica, right side; M54.42 Lumbago with sciatica, left side; M51.26 Other intervertebral disc displacement, lumbar region
CPT/HCPCS: 73562

== ENCOUNTER 2023-11-04 11:57 | Outpatient (AMB) | payer OTHER, MEDICAID, SELFPAY ==
--- NOTE | 2023-11-04 11:54 | MHC.OFFVIS ---
Intake Intake Visit Reasons: 1m/US(set) Intake Note: Patient presents for follow up visit for kidney stones and ultrasound Imagin09/14/23 Urology Medications: none Blood Thinner: none Early Childhood Associate Teacher Required: Yes Early Childhood Associate Teacher Name: KIARA MCDANIELSILVIA Accompanied by: Self / Same As Patient Allergies No Known Allergies Allergy (Verified 11/06/23 10:01) Medication List - Last Reconciled 11/06/23 by WARREN Hansen- atorvastatin 40 mg PO DAILY clonazepam 0.5 mg PO Q6H dapagliflozin propanediol (Farxiga) 10 mg PO DAILY docusate sodium (Colace) 200 mg (2 x 100 mg) PO BEDTIME dulaglutide (Trulicity) 0.75 mg (0.5 mL) subcut QWEEK gabapentin 300 mg PO TID gemfibrozil 600 mg PO DAILY hydrocortisone 2.5% (Proctosol HC) 1 appl [place] BEDTIME PRN insulin aspart U-100 (Novolog FlexPen U-100 Insulin aspart) 30 units (0.3 mL) subcut TID insulin glargine (Lantus Solostar U-100 Insulin) 60 units (0.6 mL) subcut QPM metformin ER 500 mg PO DAILY nitrofurantoin macrocrystal 100 mg PO BID [address] 40 mg PO DAILY sertraline 100 mg PO DAILY sucralfate 1 g (10 mL) PO QIDACHS 4 weeks tamsulosin 0.4 mg PO DAILY HPI HPI Comments History of Present Illness Details Sammy is a very pleasant 52-year-old Lithuanian-speaking female patient of Dr. Acosta. She has a past medical history of Diabetes, Cholesterol, GERD, nephrolithiasis, Depression and Anxiety. She presents to the office today for follow-up. Of note, patient was seen approximately 3 months ago as a new patient for nephrolithiasis at which time a renal ultrasound was ordered for further assessment evaluation. These results reviewed with the patient today. Right kidney with 9 mm echogenic focus in the mid right kidney with shadowing, consistent with nonobstructing calculus. Otherwise no lesions or hydronephrosis noted bilaterally. In discussion with the patient today she reports to be doing and feeling well. She reports a previous history of nephrolithiasis in [place] requiring surgical intervention with lithotripsy as well as stent placement. She currently denies any bothersome urinary issues or concerns. When asked she denies urinary urgency, urinary frequency, incontinence, nocturia, hematuria, dysuria, foul smelling urine, changes to urinary stream, flank pain, fever, and or chills. She is happy with her current voiding parameters. During last office visit UA noted positive nitrates at which time a urine culture was ordered and patient noted to have Ecoli 08/17. She has since completed Macrobid antibiotic therapy as prescribed. Discussed increased risks of UTI related to nephrolithiasis. In office urinalysis results reviewed with the patient today. In office urinalysis results reviewed with the patient today. Nitrates negative leukocytes. Discussed at length further treatment options of nephrolithiasis. She otherwise denies any other issues or concerns at this time. [facility] Medical History Type 2 diabetes mellitus Hypercholesteremia Depression Generalized anxiety disorder Peripheral neuropathy GERD (gastroesophageal reflux disease) Lumbar spinal stenosis Lumbar disc herniation Chronic back pain Nephrolithiasis Surgical History History of esophagogastroduodenoscopy (EGD) Hx of colonoscopy History of eye surgery History of cholecystectomy Family History Mother Diabetes Breast cancer Father Diabetes Hypertension Prostate cancer Social History Housing: House Alcohol intake: never Patient Tobacco Use Status: Never used Tobacco e-Cigarette/Vaping Use: Never Used Second Hand Smoke Exposure: No service: No Current occupational status: disabled Cognitive needs: No Hearing needs: No Vision needs: No Female Reproductive History Menstrual Age of Menarche: 14 Review of Systems Const Reports no additional complaints Eyes Reports no additional complaints ENT Reports no additional complaints Card Reports as per HPI Resp Reports no additional complaints GI Reports as per HPI Reports as per HPI Musc Reports no additional complaints Neuro Reports no additional complaints Psych Reports as per HPI Endo Reports as per HPI Ramiro/Lymph Reports no additional complaints Aller/Immun Reports no additional complaints Physical Exam Const General: cooperative, healthy appearing, comfortable, no acute distress, well developed, alert and awake Orientation/consciousness: patient oriented x3 Limitations: no limitations HEENT Head: Yes normal to inspection, Yes normocephalic and Yes atraumatic Ears: hearing grossly normal bilaterally Eyes General: appearance normal, both eyes and all related structures Neck Neck: Yes normal visual inspection and Yes trachea midline Chest Chest palpation & inspection: normal inspection of the chest Resp Effort & Inspection: normal respiratory effort and able to speak in complete sentences Cardio Rate: regular rate GI Inspection: Yes normal to inspection General: Yes no CVA tenderness Back/Spine/Pelvis Back: no CVA tenderness Skin General skin exam: no rashes or lesions noted Neuro General: patient oriented x3 Extrem General: Yes normal to inspection Psych Appearance: grossly normal and well kempt Mental Status: mental status grossly normal Speech and movement: Normal speech and movement present and Clear speech present Affect: normal affect Attitude: cooperative Thought process: Normal thought process present Thought content: Normal thought content present Insight: Fair insight present (Psych) Judgement: Fair judgement present (Psych) Results AMB Urinalysis, Automated UA Leukoctes 0 Toi/uL Last Edit by [employer] on 11/04/23 12:06 UA Nitrite Negative Last Edit by [employer] on 11/04/23 12:06 UA Urobilinogen 0.2 mg/dL Last Edit by [employer] on 11/04/23 12:06 UA Protein 0 mg/dL Last Edit by [employer] on 11/04/23 12:06 UA pH 6.0 Last Edit by [employer] on 11/04/23 12:06 UA Blood 0 Shadi/uL Last Edit by [employer] on 11/04/23 12:06 UA Specific [place] 1.015 Last Edit by [employer] on 11/04/23 12:06 UA Ketone Negative Last Edit by [employer] on 11/04/23 12:06 UA Bilirubin 0 mg/dL Last Edit by [employer] on 11/04/23 12:06 UA Glucose 1000 mg/dL Last Edit by [employer] on 11/04/23 12:06 Results Reviewed Results Reviewed: Laboratory Last Values Urine pH (Auto) 6.0 11/04/23 11:56 Specific [place] (Auto) 1.015 11/04/23 11:56 Urine Protein (Auto) 0 mg/dL 04/12/24 11:56 Glucose (UA)(Auto) 1000 mg/dL 11/04/23 11:56 Urine Ketones (Auto) Negative 11/04/23 11:56 Urine Blood (Auto) 0 Shadi/uL 11/04/23 11:56 Urine Nitrite (Auto) Negative 11/04/23 11:56 Urine Bilirubin (Auto) 0 mg/dL 11/04/23 11:56 Urine Urobilinogen (Auto) 0.2 mg/dL 11/04/23 11:56 Leukocyte Esterase (Auto) 0 Toi/uL 11/04/23 11:56 Ordering Physician: Erica Quarles Date of Service: 09/14/23 Procedure(s): US renal BI Accession Number(s): [id number] cc: Erica Quarles-; Hilda Acosta~ EXAMINATION: US RETROPERITONEAL LIMITED (RENAL ONLY) CLINICAL INFORMATION: Calculus of kidney. COMPARISON: None available. TECHNIQUE: Real-time imaging of the kidneys. FINDINGS: RIGHT KIDNEY: 10.2 x 5.51 x 5.05 cm (SAG x AP x TRV). The kidney is normal in size, contour, and echogenicity. Renal cortical thickness is normal. There is an echogenic focus measuring 9 mm in the mid right kidney with shadowing, consistent with a nonobstructing calculus. No focal parenchymal lesions or hydronephrosis. LEFT KIDNEY: 11.3 x 5.39 x 4.24 cm (SAG x AP x TRV). The kidney is normal in size, contour, and echogenicity. Renal cortical thickness is normal. No calculi or focal parenchymal lesions. No hydronephrosis. US/US renal BI IMPRESSION: Nonobstructing 9 mm right renal calculus. Assessment & Plan Assessment & Plan (1) Nephrolithiasis: Code(s): N20.0 - Calculus of kidney Plan In office urinalysis results reviewed with the patient today; as noted above. Recent renal imaging results reviewed with the patient today; as noted above. Discussed at length correlation of urinary tract infection and nephrolithiasis. Discussed further treatment options of nephrolithiasis to include ESWL versus ureteroscopy; risks and benefits of these interventions were discussed. Patient currently denies any bothersome urinary issues or concerns. She reports be happy with current voiding parameters. Discussed, educated, and stressed the importance of drinking plenty of water daily. Continue adding 1 oz of lemon juice to water daily. Discussed near future metabolic workup to include 24 hour urine collection and labs. Will obtain KUB for further assessment evaluation Follow-up in 2-4 weeks with imaging to be completed prior; or sooner with any issues, concerns, and or questions. Orders: Orders AMB Urinalysis Automated 11/04/23 Z13.9 - Encounter for screening, unspecified XR KUB 11/04/23 N20.0 - Calculus of kidney Medications: Discontinued nitrofurantoin macrocrystal must administer with a meal/food Discontinued Reason: Patient Completed Course 100 mg PO BID 10 days 20 caps 0RF N39.0 - Urinary tract infection, site not specified Patient Instructions: The patient had an opportunity to ask questions regarding the treatment plan. All questions were answered. Physical exam, labs, and imaging were discussed and reviewed in detail. As well as risks, benefits, and discussion of treatment choices. No major barriers to understanding were identified. The patient expressed understanding and agreement with the above treatment plan. The patient was made aware they should contact our office by phone for worsening of their current condition, the appearance of new symptoms, or with any questions or concerns. Compliance is encouraged with any medications and follow up testing that is ordered. It is a privilege to be allowed the opportunity to participate in? your urological care.? Again, if you have any questions or concerns If you have any questions or concerns please do not hesitate to contact me. The office is [phone]. This note is constructed using voice recognition software. While every effort has been made to ensure accuracy lift electrician errors may have been included. Yours sincerely, LUISA Hansen Coding Level of Care Code Est Pt Level 3 (73369) Diagnoses Nephrolithiasis N20.0
== END 2023-11-04 12:19 | disposition home or self-care (01) ==
LOC: HO.HUSH 11:57
PROVIDERS: PCP Nurse Practitioner Family; Visit Provider Nurse Practitioner Family
DX: Z13.9 Encounter for screening, unspecified (principal)
CPT/HCPCS: 99213

== ENCOUNTER → 2023-11-04 11:57 | Outpatient (BNVA) | payer OTHER, MEDICAID, SELFPAY | PROVIDERS: PCP Nurse Practitioner Family; Visit Provider Nurse Practitioner Family | DX: N20.0 Calculus of kidney (principal) | CPT/HCPCS: 81003 ==

== ENCOUNTER 2023-11-15 10:43 | Outpatient (REF) | payer MEDICARE, MEDICAID, SELFPAY ==
--- NOTE | ~2023-11-15 | XR_ITS ---
EXAMINATION: XR ABDOMEN KUB CLINICAL INDICATION: Calculus of kidney COMPARISON: Renal ultrasound 09/15/2023 TECHNIQUE: AP view of the abdomen. FINDINGS: The bowel gas pattern is normal with no evidence of ileus or obstruction. There is a large amount of stool within the ascending colon significantly obscuring the right kidney. Probable 0.5 cm calculus projected over the mid right kidney. The left kidney is also significantly obscured by bowel gas and stool. Question 0.6 cm calculus projected over the lower pole of the left kidney. Surgical clips in the right upper quadrant are consistent with prior cholecystectomy. Degenerative changes are seen in the lower lumbar spine. XR/XR KUB IMPRESSION: 1. Limited evaluation of the kidneys due to bowel gas and stool. 2. Probable bilateral renal calculi.
[2023-11-16 09:53] LABS: H Pylori Breath Test Negative (Negative)
== END 2023-11-15 10:44 | disposition home or self-care (01) ==
LOC: HO.XRAY 10:43
PROVIDERS: Absent Provider Nurse Practitioner Family; PCP Nurse Practitioner Family; Visit Provider Physician Assistant
DX: N20.0 Calculus of kidney (principal)
CPT/HCPCS: 74018; 83013; 99211

== ENCOUNTER 2023-11-15 10:43 | Outpatient (AMB) | payer OTHER, MEDICAID, SELFPAY ==
--- NOTE | 2023-11-15 10:56 | AM.OFFVISNUR ---
Intake Intake Visit Reasons: H pylori Allergies No Known Allergies Allergy (Verified 11/06/23 10:01) Nursing Note Patient presents for collection of?H?Pylori?breath test. Patient has been fasting for 1 hour (nothing to eat, drink, no chewing gum or smoking) has not taken any antacid medication for at least 2 weeks and has no allergies to artificial sweeteners.?? Coding Level of Care Code Established Pt Est Pt Level 1 (75959) Patient Type Established Medical Decision Making Straight Forward Diagnoses Gastritis K29.70 Assessment & Plan Assessment & Plan (1) Gastritis: Code(s): K29.70 - Gastritis, unspecified, without bleeding Category: Medical Plan Patient presents for collection of?H?Pylori?breath test. Patient has been fasting for 1 hour (nothing to eat, drink, no chewing gum or smoking) has not taken any antacid medication for at least 2 weeks and has no allergies to artificial sweeteners.???This test checks for an overgrowth of bacteria in your stomach. We all have bacteria but some may have more than others. It is treatable. if the test comes back negative there is nothing else to do. If the test result is positive we will treat you with 2 antibiotics and a medication to decrease the acid in your stomach (PPI) for 2 weeks. Two weeks after you have completed the treatment we will retest you to make sure the overgrowth has resolved. Patient Instructions: Process for specimen collection and reason for testing was explained to the patient. Specimen collection. Patient instructed to take a deep breath and then exhale into the blue bag, filling it up as much as possible. Patient instructed to drink a mixture of water and the artificial sweetener with a straw. A 15 minute wait period was observed. Patient instructed to take a deep breath and then exhale into the pink bag, filling it up as much as possible.??
== END 2023-11-15 10:58 | disposition home or self-care (01) ==
PROVIDERS: PCP Nurse Practitioner Family; Visit Provider Physician Assistant
DX: K29.70 Gastritis, unspecified, without bleeding (principal)

== ENCOUNTER 2023-11-24 13:30 | Outpatient (AMB) | payer OTHER, MEDICAID, SELFPAY ==
[2023-11-24 13:44] VITALS: BP 100/60; PULSE 74; O2SAT 98; BMI 25.9
--- NOTE | 2023-11-24 13:44 | MHC.PC.OV ---
Vital Signs 11/24/23 13:44 Height 5 ft 6 in Weight 160 lb 6 oz BMI 25.9 BP 100/60 Blood Pressure Location Lt brachial Position Sitting Pulse 74 Pulse Source Pulse Oximeter Pulse Oximetry (%) 98 Oxygen Delivery Method Room Air Intake Visit Reasons: Annual PE/ Transfer Of Care Dr. Sandra Inventory Control Assistant Required: No Accompanied by: Self / Same As Patient Allergies No Known Allergies Allergy (Verified 11/24/23 14:04) Medication List - Last Reconciled 11/24/23 by Bill Disla PA-C atorvastatin 40 mg PO DAILY blood sugar diagnostic ([employer] test strips) As directed up to three times per day blood-glucose meter ([employer] Flex Start kit) As directed clonazepam 0.5 mg PO Q6H dapagliflozin propanediol (Farxiga) 10 mg PO DAILY dulaglutide (Trulicity) 0.75 mg (0.5 mL) subcut QWEEK gabapentin 300 mg PO TID gemfibrozil 600 mg PO DAILY insulin aspart U-100 (Novolog FlexPen U-100 Insulin aspart) 30 units (0.3 mL) subcut TID insulin glargine (Lantus Solostar U-100 Insulin) 60 units (0.6 mL) subcut QPM metformin ER 500 mg PO DAILY pantoprazole DR 40 mg PO DAILY sertraline 100 mg PO DAILY tamsulosin 0.4 mg PO DAILY Tobacco use date assessed: 11/24/23 Dental Screening Dental Screen Date: 11/24/23 Did you have a dental visit in the last 12 months?: Yes Did you have a dental problem in the last 6 months where you did not have access to dental care?: No Was dental information given to patient?: Patient has dentist HPI Annual PE/ Transfer Of Care Dr. Sandra HPI Details Patient is a 53-year-old female here today for a new patient, annual physical. This is my 1st time meeting this Congolese-speaking 53-year-old female.. Patient is Congolese-speaking only thus need to use a jewish history professor today in office. Patient has a past medical history significant for type 2 diabetes, major depressive disorder, gastritis, chronic low back pain. .. Type 2 diabetes: Her diabetes has been well controlled with current anti hyperglycemic/ insulin therapy. A1c acceptable. .. 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 Colonoscopy: Done in 2023, tubular adenoma polyp found repeat 5 years Vacation Guide: Followed by Lilian designer writer, Pap smear done in 2023 normal mammo: needs Mammo Vaccines: Up-to-date with shingles vaccine, flu vaccine, considering pneumonia and tetanus vaccines Laboratory Tests 05/05/23 09:09 Fasting Glucose 116 H Hemoglobin A1c % 6.5 H LDL Cholesterol, C alc 80 PFSH Medical History Generalized anxiety disorder Hypercholesteremia Type 2 diabetes mellitus Depression Peripheral neuropathy GERD (gastroesophageal reflux disease) Lumbar spinal stenosis Lumbar disc herniation Chronic back pain Nephrolithiasis Surgical History History of esophagogastroduodenoscopy (EGD) Hx of colonoscopy History of eye surgery History of cholecystectomy Family History (Updated 11/24/23 @ 14:03 by Bill Disla PA-C) Mother Diabetes Hypertension Father Diabetes Hypertension Prostate cancer Social History Housing: House Alcohol intake: never Patient Tobacco Use Status: Never used Tobacco e-Cigarette/Vaping Use: Never Used Second Hand Smoke Exposure: No service: No Current occupational status: disabled Cognitive needs: No Hearing needs: No Vision needs: No Female Reproductive History Menstrual Age of Menarche: 14 Questionnaire PHQ-9 Over the last 2 weeks, how often have you been bothered by any of the following problems? 1. Little interest or pleasure in doing things: not at all 2. Feeling down, depressed, or hopeless: not at all 3. Trouble falling or staying asleep, or sleeping too much: not at all 4. Feeling tired or having little energy: not at all 5. Poor appetite or overeating: not at all 6. Feeling bad about yourself - or that you are a failure or have let yourself or your family down: not at all 7. Trouble concentrating on things, such as reading the newspaper or watching television: not at all 8. Moving or speaking so slowly that other people could have noticed. Or the opposite - being so fidgety or restless that you have been moving around a lot more than usual: not at all 9. Thoughts that you would be better off or of hurting yourself in some way: not at all Total score: 0 Depression Screening Interpretation: Negative Depression Screening Done: Yes 43175 - PHQ-9 Billing: Yes Source: Developed by Drs. Ricky Castillo, Mai Aguilar, Huey Castillo and colleagues, with an educational bryon from [employer]. Thrive Questionnaire Date Thrive assessed: 11/24/23 I am a: Patient What is your living situation today?: I have a steady place to live Within the past 12 months, did the food you bought not last and you didn't have the money to get more?: Never true Within the past 12 months, did you worry whether your food would run out before you got money to buy more?: Never true Do you have trouble paying for medicines?: No Do you have trouble getting transportation to medical appointments?: No Do you have trouble paying your heating and electricity bill?: No Do you have trouble taking care of your child, family member or friend?: No Do you have trouble with day-to-day activities such as bathing, preparing meals, shopping, managing finances, etc.?: No Are you currently unemployed and looking for a job?: No Are you interested in more education?: No Please select the resources that you would like help with: None Currently or been in a relationship where the following occur: no concerns reported THRIVE Score: 0 AUDIT C Alcohol Use Questionnaire (AUDIT-C) 1. How often do you have a drink containing alcohol?: Never 3. How often do you have six or more drinks on one occasion?: Never Total Score: 0 JOSE MANUEL-7 AMB Questionnaire JOSE MANUEL-7 Date JOSE MANUEL - 7 assessed: 11/24/23 (Pt is seeing Dr. Alvarez through zoom. ) Feeling nervous, anxious, or on edge: 0 = Not at all Not being able to stop or control worryin = Not at all Worrying too much about different things: 0 = Not at all Trouble relaxin = Not at all Being so restless that it is hard to sit still: 0 = Not at all Becoming easily annoyed or irritable: 0 = Not at all Feeling afraid as if something awful might happen: 0 = Not at all Total JOSE MANUEL-7 score (0-4 normal; 5-9 mild; 10-14 moderate; 15-21 severe): 0 Source: Developed by Drs. Ricky Castillo, Mai Aguilar, Huey Castillo and colleagues, with an educational bryon from [employer]. JOSE MANUEL-7 Assessment Billing JOSE MANUEL-7 Assessment Tool: JOSE MANUEL-7 Assessment 03178 Review of Systems Const Denies body aches, Denies chills, Denies excessive sweating, Denies fatigue, Denies fever(s) and Denies headache(s) Eyes Denies blurry vision ENT Denies dysphagia, Denies vertigo, Denies dizziness, Denies headache(s), Denies hearing loss and Denies tinnitus Card Denies chest pain, Denies chest pain with activity, Denies syncope, Denies irregular heart rhythm and Denies dyspnea Resp Denies chest congestion, Denies cough, Denies hemoptysis, Denies dyspnea and Denies wheezing GI Denies abdominal pain, Denies melena, Denies hematochezia, Denies coffee ground emesis, Denies dysphagia, Denies diarrhea, Denies nausea and Denies vomiting Denies urinary frequency, Denies dysuria, Denies urinary hesitancy and Denies urinary urgency Musc Denies arthralgias, Denies limited range of motion, Denies muscle cramps and Denies muscle weakness Skin/Breast Denies rash and Denies skin ulcer Neuro Denies Abnormal speech present, Denies confusion, Denies vertigo, Denies dizziness, Denies syncope, Denies headache(s), Denies memory loss and Denies seizure-like activity Psych Denies anxiety, Denies confusion, Denies depression, Denies memory loss, Denies panic attacks and Denies paranoia Endo Denies excessive sweating, Denies fatigue, Denies flushing, Denies polydipsia and Denies polyuria Aller/Immun Denies wheezing Physical exam (Primary Care) Vital Signs: Last Vital Signs Pulse 74 11/24/23 13:44 BP 100/60 11/24/23 13:44 Pulse Ox 98 11/24/23 13:44 Oxygen Delivery Method Room Air 11/24/23 13:44 BMI result Body Mass Index 25.9 Tobacco/Smoking Status: Tobacco use Status Tobacco use date assessed 11/24/23 11/24/23 13:53 Patient Tobacco Use Status Never used Tobacco 11/24/23 13:52 e-Cigarette/Vaping Use Never Used 11/24/23 13:52 PHQ-9: PHQ-9 Score PHQ-9: Total score 0 11/24/23 13:52 Depression Screening Interpretation: Negative Thrive Assessment: Date of Thrive Assessment Date Thrive assessed 11/24/23 11/24/23 13:52 Currently or been in a relationship where the following occur: no concerns reported Const General: cooperative, comfortable, no acute distress, alert and awake; No confusion Orientation/consciousness: oriented to person, oriented to place, patient oriented x3 and No confusion HENMT Head: Yes normocephalic Ears: external ears normal and TM's normal bilaterally Face and sinus: No sinus tenderness Mouth: Normal oral and palatal mucosa present and tongue normal Teeth and gingiva: dentition normal and gingiva normal Throat: Yes posterior oropharynx normal, Yes tonsils normal and Yes uvula midline Eyes Conjunctivae: conjunctivae normal Sclerae: sclerae normal Pupils: Equal, round and reactive pupils present EOM: EOMs intact bilaterally Direct Ophthalmoscopy: No no photophobia Neck Neck: Yes no lymphadenopathy, No tender and Yes no JVD Thyroid: Thyroid normal Carotids: no bruits Chest Chest palpation & inspection: no tenderness Resp Effort & Inspection: normal respiratory effort, no audible wheezes, not labored and no stridor Auscultation: no crackles, no rales, no rhonchi and no wheezes Cardio Jugular venous distension: no JVD Rate: regular rate, not bradycardic and not tachycardic Rhythm: regular rhythm Bruits: no carotid bruits Peripheral pulses: Peripheral pulses 2+ throughout GI Inspection: Yes normal to inspection, No abdominal wall ecchymosis and No visible herniation Palpation (GI): Soft to palpation, nontender, no guarding, not rigid and No hepatosplenomegaly present Auscultation: normoactive bowel sounds General: Yes no CVA tenderness Back/Spine/Pelvis Back: no CVA tenderness and No back tenderness Cervical Spine: cervical ROM normal Thoracic/Lumbar Spine: thoracic and lumbar spine normal to inspection, straight leg raise negative bilaterally, No thoraco-lumbar ROM limited and No lumbar spinal tenderness Skin Lesions: no lesions Rashes: no rashes Wounds: no wounds Neuro General: oriented to person, oriented to place, patient oriented x3, CN's II-XI intact bilaterally and No confusion Cranial nerves: Yes Equal, round and reactive pupils present and Yes Normal accommodation reflex present Cognition (Neuro): normal cognition Speech: No Abnormal speech present Gait exam (Neuro): Normal gait present Motor exam (neuro): 5/5 motor strength present throughout Extrem Right upper extremity: full ROM; no cyanosis Left upper extremity: full ROM; no cyanosis Right lower extremity: no edema Left lower extremity: no edema Psych Appearance: grossly normal Mental Status: mental status grossly normal Affect: normal affect Attitude: cooperative Thought process: Normal thought process present Assessment and Plan Assessment & Plan (1) Annual physical exam: Code(s): Z00.00 - Encounter for general adult medical examination without abnormal findings (2) Type 2 diabetes mellitus: Code(s): E11.9 - Type 2 diabetes mellitus without complications Qualifiers: Diabetes mellitus complication status: with hyperglycemia Diabetes mellitus retirement insulin use: with retirement use Qualified Code(s): E11.65 - Type 2 diabetes mellitus with hyperglycemia; 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 She is on fairly doses of insulin, Trulicity and continues on Farxiga 10 mg. Goal A1c is to remain below 7.0 (3) Lumbar spinal stenosis: Code(s): M48.061 - Spinal stenosis, lumbar region without neurogenic claudication Qualifiers: Neurogenic claudication status: with neurogenic claudication Qualified Code(s): M48.062 - Spinal stenosis, lumbar region with neurogenic claudication Plan: Continues to have lower lumbar spine pain, continues on daily use of gabapentin 300 t.i.d. with decent pain relief. She is currently disabled due to her back, neck and mental health disorders. (4) Breast cancer screening: Code(s): Z12.39 - Encounter for other screening for malignant neoplasm of breast Qualifiers: Breast cancer screening modality: mammogram Qualified Code(s): Z12.31 - Encounter for screening mammogram for malignant neoplasm of breast Plan: Needs screening mammogram (5) MDD (major depressive disorder), recurrent episode, moderate: Code(s): F33.1 - Major depressive disorder, recurrent, moderate Plan: Patient has a history of depression. Continues to speak with a mental health therapist and has a med to help med provider. He feels her mental health is fairly stable. (6) Generalized anxiety disorder: Code(s): F41.1 - Generalized anxiety disorder Plan: Patient has a history of anxiety. Again speaks with a mental health therapist and has a mental health med provider. Orders: Orders [facility] [place]. 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 Lipid Panel 11/24/23 E78.00 - Pure hypercholesterolemia, unspecified Complete Blood Count no Diff 11/24/23 E78.00 - Pure hypercholesterolemia, unspecified Microalbumin, Random (w Creat) 11/24/23 E11.65 - Type 2 diabetes mellitus with hyperglycemia, Z79.4 - nursing home (current) use of insulin AMB Hemoglobin A1c 11/24/23 E11.65 - Type 2 diabetes mellitus with hyperglycemia, 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 Medications: Changed From dapagliflozin propanediol (Farxiga) 10 mg PO DAILY 30 tabs 0RF E11.65 - Type 2 diabetes mellitus with hyperglycemia, Z79.4 - nursing home (current) use of insulin To dapagliflozin propanediol (Farxiga) 10 mg PO DAILY 90 tabs 1RF 90 days E11.65 - Type 2 diabetes mellitus with hyperglycemia, Z79.4 - nursing home (current) use of insulin From dulaglutide (Trulicity) 0.75 mg (0.5 mL) subcut QWEEK 2 mL 0RF E11.65 - Type 2 diabetes mellitus with hyperglycemia, Z79.4 - nursing home (current) use of insulin To dulaglutide (Trulicity) 0.75 mg (0.5 mL) subcut QWEEK 6.5 mL 1RF 90 days E11.65 - Type 2 diabetes mellitus with hyperglycemia, 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 From gabapentin 300 mg PO TID 90 caps 0RF M48.062 - Spinal stenosis, lumbar region with neurogenic claudication To gabapentin 300 mg PO TID 270 caps 1RF 90 days M48.062 - Spinal stenosis, lumbar region with neurogenic claudication From metformin ER 500 mg PO DAILY 30 tabs 3RF E11.65 - Type 2 diabetes mellitus with hyperglycemia, 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 Coding Level of Care Code Est Pt Prev Care 40-64y(59366) Diagnoses Annual physical exam Z00.00 Type 2 diabetes mellitus with hyperglycemia, with long-term current use of insulin E11.65; Z79.4 Diabetes mellitus complication status: with hyperglycemia Diabetes mellitus case management associate insulin use: with retirement use Spinal stenosis of lumbar region with neurogenic claudication M48.062 Neurogenic claudication status: with neurogenic claudication Encounter for screening mammogram for malignant neoplasm of breast Z12.31 Breast cancer screening modality: mammogram MDD (major depressive disorder), recurrent episode, moderate F33.1 Generalized anxiety disorder F41.1 Additional Codes JOSE MANUEL-7 Assessment Billing - JOSE MANUEL-7 Assessment Tool: JOSE MANUEL-7 Assessment [id number] ([id number])
== END 2023-11-24 14:23 | disposition home or self-care (01) ==
PROVIDERS: PCP Nurse Practitioner Family; Visit Provider Physician Assistant
DX: Z00.00 Encounter for general adult medical examination without abnormal findings (principal); E11.65 Type 2 diabetes mellitus with hyperglycemia; Z79.4 Long term (current) use of insulin; F33.1 Major depressive disorder, recurrent, moderate; M48.062 Spinal stenosis, lumbar region with neurogenic claudication; Z12.31 Encounter for screening mammogram for malignant neoplasm of breast; F41.1 Generalized anxiety disorder
CPT/HCPCS: 99396

== ENCOUNTER 2023-11-30 12:00 | Outpatient (AMB) | payer MEDICARE, MEDICAID, SELFPAY ==
--- NOTE | 2023-11-30 12:00 | A.OFFVIS_ITS ---
Intake Visit Reasons: 4w/KUB(set) Intake Note: Patient presents for follow up visit for kidney stones and kub Urology Medications: Tamsulosin Blood Thinner: none Licensed Appraiser Required: Yes Licensed Appraiser Name: KIARA JAUREGUI Accompanied by: Self / Same As Patient Allergies No Known Allergies Allergy (Verified 11/30/23 13:15) Medication List - Last Reconciled 11/30/23 by LUISA Hansen atorvastatin 40 mg PO DAILY blood sugar diagnostic ([employer] Verio test strips) As directed up to three times per day blood-glucose meter ([employer] Verio Flex Start kit) As directed clonazepam 0.5 mg PO Q6H dapagliflozin propanediol (Farxiga) 10 mg PO DAILY 90 days dulaglutide (Trulicity) 0.75 mg (0.5 mL) subcut QWEEK 90 days gabapentin 300 mg PO TID 90 days gemfibrozil 600 mg PO DAILY 90 days insulin aspart U-100 (Novolog FlexPen U-100 Insulin aspart) 30 units (0.3 mL) subcut TID insulin glargine (Lantus Solostar U-100 Insulin) 60 units (0.6 mL) subcut QPM metformin ER 500 mg PO DAILY [address] 40 mg PO DAILY sertraline 100 mg PO DAILY tamsulosin 0.4 mg PO DAILY HPI Comments Details: Sammy is a very pleasant 53 year-old Croatian-speaking female patient of Dr. Acosta. She has a past medical history of diabetes, cholesterol, GERD, nephrolithiasis, depression and anxiety. She is being follow-up on today via video telehealth for her nephrolithiasis. Recent KUB results reviewed with the patient today. Probable 5 mm calculus over the right mid kidney and 6 mm stone in the lower pole of the left kidney. When asked she continues to report bilateral flank pain right side greater than right. Discussed treatment options with surveillance monitoring verses surgical intervention with ESWL. Risks and benefits of these interventions were discussed. She has a previous history of nephrolithiasis in [place] requiring surgical intervention with lithotripsy as well as stent placement. She currently denies urinary urgency, urinary frequency, incontinence, nocturia, hematuria, dysuria, foul smelling urine, changes to urinary stream, fever, and or chills. She is happy with her current voiding parameters. Patient with positive urine culture noting ecoli 08/17 she has since completed Macrobid antibiotic therapy as prescribed. She otherwise denies any other issues or concerns at this time. [facility] Medical History Generalized anxiety disorder Hypercholesteremia Type 2 diabetes mellitus Depression Peripheral neuropathy GERD (gastroesophageal reflux disease) Lumbar spinal stenosis Lumbar disc herniation Chronic back pain Nephrolithiasis Surgical History History of esophagogastroduodenoscopy (EGD) Hx of colonoscopy History of eye surgery History of cholecystectomy Family History (Updated 11/24/23 @ 14:03 by Bill Disla PA-C) Mother Diabetes Hypertension Father Diabetes Hypertension Prostate cancer Social History Housing: House Alcohol intake: never Patient Tobacco Use Status: Never used Tobacco e-Cigarette/Vaping Use: Never Used Second Hand Smoke Exposure: No service: No Current occupational status: disabled Cognitive needs: No Hearing needs: No Vision needs: No Female Reproductive History Menstrual Age of Menarche: 14 Review of Systems Const Reports no additional complaints Eyes Reports no additional complaints ENT Reports no additional complaints Card Reports as per HPI Resp Reports no additional complaints GI Reports as per HPI Reports as per HPI Musc Reports no additional complaints Neuro Reports no additional complaints Psych Reports as per HPI Endo Reports as per HPI Ramiro/Lymph Reports no additional complaints Aller/Immun Reports no additional complaints Physical Exam Const General: cooperative, healthy appearing, comfortable, no acute distress, well developed, alert and awake Orientation/consciousness: patient oriented x3 Resp Effort & Inspection: normal respiratory effort and able to speak in complete sentences Neuro General: patient oriented x3 Psych Appearance: grossly normal and well kempt Mental Status: mental status grossly normal Speech and movement: Normal speech and movement present Affect: normal affect Attitude: cooperative Thought process: Normal thought process present Thought content: Normal thought content present Insight: Fair insight present (Psych) Judgement: Fair judgement present (Psych) Telehealth Telehealth Telehealth Platform: [employer] Location of provider rendering services: practice address Location of patient: address on file Patient Identification confirmed using: Name, : Yes Telehealth method: video Patient verbally consented to treatment: Yes Patient verbally consented to billing insurance company: Yes Patient informed of any privacy concerns related to visit: Yes Minutes spent on Phone/Video with Pt.: 20 Results Reviewed Results Reviewed: Date of Service: 11/15/23 EXAMINATION: XR ABDOMEN KUB FINDINGS: The bowel gas pattern is normal with no evidence of ileus or obstruction. There is a large amount of stool within the ascending colon significantly obscuring the right kidney. Probable 0.5 cm calculus projected over the mid right kidney. The left kidney is also significantly obscured by bowel gas and stool. Question 0.6 cm calculus projected over the lower pole of the left kidney. Surgical clips in the right upper quadrant are consistent with prior cholecystectomy. Degenerative changes are seen in the lower lumbar spine. IMPRESSION: 1. Limited evaluation of the kidneys due to bowel gas and stool. 2. Probable bilateral renal calculi. Assessment & Plan Assessment & Plan (1) Nephrolithiasis: Code(s): N20.0 - Calculus of kidney Category: Medical (2) Flank pain: Code(s): R10.9 - Unspecified abdominal pain Category: Medical Plan: Plan Extracorporeal Shock Wave Lithotripsy We discussed the nature of the decision and reasonable alternatives for performing the above surgery. Interventions include chemical dissolution, ESWL, ureteroscopy with laser lithotripsy and stent placement, PCNL. ? Options such as medical therapy were discussed. The relative uncertainties and benefits related to each alternate procedure were adequately discussed. General surgical risks including, but not limited to, pain, bleeding, infection, myocardial infarction, pulmonary embolus, deep vein thrombosis and cerebrovascular accident which may result in further hospitalization were discussed.? Full disclosure of the procedure as well as all major risks, benefits and complications were discussed including but not limited to risks of bleeding, injury to the kidney with hematoma or daniel-hematoma, failure to fragments stone, potential for ureteric obstruction from stone passage and need for secondary procedures.? There is a small long-term risk of hypertension and a question pina of diabetes.? Success rate of fragmentation and passage is approximately 70- 75%.? This is compared to the risks and benefits for ureteroscopy which has a higher success rate but is a more invasive procedure. The success rate of the procedure was discussed. Success of the procedure in the short-term does not necessarily guarantee that long-term success will be maintained. Suitable follow up will need to be maintained. The patient showed understanding of the discussion as well as the typical recovery time, and the outpatient nature of this procedure. Opportunity was given for questions. Repeat-back protocol used to confirm understanding. They wish to proceed with right ESWL Plan Recent KUB results reviewed with the patient today; as noted above. Discussed at length potential treatment options for nephrolithiasis to include surveillance monitoring verses metabolic workup verses surgical intervention. Discussed, educated, and stressed the importance of drinking plenty of water daily. Continue adding 1 oz of lemon juice to water daily. Will schedule for right-sided ESWL followed by left-sided ESWL. Patient currently denies any bothersome urinary issues. She reports be happy with current voiding parameters. All questions were answered. Follow-up per doctor's orders; or sooner with any issues, concerns, and or questions. Patient Instructions: The patient had an opportunity to ask questions regarding the treatment plan. All questions were answered. Physical exam, labs, and imaging were discussed and reviewed in detail. As well as risks, benefits, and discussion of treatment choices. No major barriers to understanding were identified. The patient expressed understanding and agreement with the above treatment plan. The patient was made aware they should contact our office by phone for worsening of their current condition, the appearance of new symptoms, or with any questions or concerns. Compliance is encouraged with any medications and follow up testing that is ordered. It is a privilege to be allowed the opportunity to participate in? your urological care.? Again, if you have any questions or concerns If you have any questions or concerns please do not hesitate to contact me. The office is [phone]. This note is constructed using voice recognition software. While every effort has been made to ensure accuracy diesel machinist errors may have been included. Yours sincerely, LUISA Hansen Coding Level of Care Code Tele Est Pt Level 4 (64045) Diagnoses Nephrolithiasis N20.0 Flank pain R10.9
== END 2023-11-30 13:26 | disposition home or self-care (01) ==
LOC: HO.HUSH 12:00
PROVIDERS: PCP Nurse Practitioner Family; Visit Provider Nurse Practitioner Family
DX: N20.0 Calculus of kidney (principal); R10.9 Unspecified abdominal pain
CPT/HCPCS: 99214

== ENCOUNTER → 2023-11-30 12:00 | Outpatient (BNVA) | payer MEDICARE, MEDICAID, SELFPAY | PROVIDERS: PCP Nurse Practitioner Family; Visit Provider Nurse Practitioner Family ==

== ENCOUNTER 2023-12-27 09:43 | Outpatient (REF) | payer MEDICARE, MEDICAID, SELFPAY ==
--- NOTE | ~2023-12-27 | MM_ITS ---
EXAMINATION: MM SCREENING DIGITAL BREAST TOMOSYNTHESIS, BILATERAL CLINICAL INFORMATION: Screening. Asymptomatic. COMPARISON: Mammography: This study is compared with prior exams dating back to 2022. TECHNIQUE: Digital breast tomosynthesis is performed in both the craniocaudal and mediolateral oblique views along with computer-aided detection (CAD). Synthesized 2D images are generated from the tomosynthesis. FINDINGS: There are scattered areas of fibroglandular density (ACR BI-RADS breast composition Category b). There are no significant masses, abnormal calcifications, or other abnormalities. MM/MM tomosynthesis screening BI IMPRESSION: No mammographic evidence of malignancy. ASSESSMENT: BI-RADS BI-RADS 1 - Negative RECOMMENDATION: Routine annual mammography screening. 1 year F/U This examination should not preclude the clinical evaluation of a suspicious palpable abnormality. This patient's information was entered into a reminder system with a target due date for their next mammogram.
== END 2023-12-27 09:44 | disposition home or self-care (01) ==
LOC: HO.MAMMO 09:43
PROVIDERS: PCP Physician Assistant; Visit Provider Physician Assistant
DX: Z12.31 Encounter for screening mammogram for malignant neoplasm of breast (principal)
CPT/HCPCS: 77063; 77067

== ENCOUNTER → 2023-12-27 10:00 | Outpatient (BNV) | payer MEDICARE, MEDICAID, SELFPAY | PROVIDERS: PCP Physician Assistant; Visit Provider Radiology Diagnostic Radiology | DX: Z12.31 Encounter for screening mammogram for malignant neoplasm of breast (principal) | CPT/HCPCS: 77063; 77067 ==

== ENCOUNTER 2024-01-11 07:24 | Outpatient (REF) | payer MEDICARE, MEDICAID, SELFPAY ==
[2024-01-11 07:59] LABS: Hemoglobin 13.9 g/dl (12.0-16.0); Mean Corpuscular HGB Conc 32.3 g/dl (31.0-35.0); Mean Corpuscular Hemoglobin 30.7 pg (27.0-33.0); Mean Corpuscular Volume 94.9 fL (80.0-98.0); Mean Platelet Volume 10.9 fL (9.4-12.3); Platelet Count 254 X10*3/uL (160-400); Red Blood Count 4.53 X10*6/uL (4.20-5.50); Red Cell Distribution Width 14.3 % (11.0-16.0); White Blood Count 7.2 X10*3/uL (4.8-10.8)
[2024-01-11 08:52] LABS: Alanine Aminotransferase 8 U/L (0-31); Albumin Level 4.2 g/dL (3.5-5.0); Alkaline Phosphatase 88 U/L (39-117); Anion Gap 13 (12-20); Aspartate Amino Transferase 13 U/L (5-31); Bilirubin Total 0.3 mg/dL (0.0-1.0); Blood Urea Nitrogen 18 mg/dL (9-16); Calcium 9.4 mg/dL (8.4-10.2); Carbon Dioxide 25 mmol/L (22-29); Chloride 108 mmol/L (96-108); Cholesterol 183 mg/dL (<200); Estimated Glomerular Filt Rate > 60; Glucose Fasting 98 mg/dL (60-99); HDL Cholesterol 86 mg/dL (>40); LDL Cholesterol Calculated 88 mg/dL (<100); Sodium 142 mmol/L (135-145); Total Protein 7.4 g/dL (6.5-8.0); Triglycerides 45 mg/dL (<150)
[2024-01-11 08:53] LABS: Creatinine Urine 95.58 mg/dL; Microalbum/Creatinine Ratio Ur 5.2 ug/mg cr (<30)
[2024-01-11 09:09] LABS: Vitamin D 25-OH Total 39.1 ng/mL (>30)
== END 2024-01-11 07:25 | disposition home or self-care (01) ==
LOC: HO.LAB 07:24
PROVIDERS: PCP Physician Assistant; Visit Provider Physician Assistant
DX: Z13.89 Encounter for screening for other disorder (principal)
CPT/HCPCS: 36415; 80053; 80061; 82043; 82306; 82570; 85027

== ENCOUNTER 2024-01-11 08:03 | Day surgery (SDC) | payer MEDICARE, MEDICAID, SELFPAY ==
[2024-01-09 07:20] VITALS: BMI 25.8
--- NOTE | 2024-01-09 13:32 | HO.ANESPROP2 ---
HPI - Anesthesia Eval Consult details Narrative: 53yo F for Right ESWL s/p EGD and [place] 08/2023 with [facility] Anesthesia Pre-Procedure Meds Is the patient on any of the following meds?: GLP1/DPP4 and SGLT2 Inhib PMFSH Active Problems Active Problems: All Active Problems GERD (gastroesophageal reflux disease) (Acute) Flank pain (Acute) Generalized anxiety disorder (Acute) MDD (major depressive disorder), recurrent episode, moderate (Acute) Hypercholesteremia (Acute) Breast cancer screening (Acute) Annual physical exam (Acute) Right knee pain (Acute) Gastritis (Acute) Sessile serrated polyp of colon (Acute) Type 2 diabetes mellitus (Acute) Well woman exam with routine gynecological exam (Acute) Encounter for screening examination for sexually transmitted disease (Acute) Lumbar spinal stenosis (Acute) Lumbar disc herniation (Acute) Chronic back pain (Acute) Cervical cancer screening (Acute) Nephrolithiasis (Acute) Rectal bleeding (Acute) Past Medical History Medical History GERD (gastroesophageal reflux disease) Generalized anxiety disorder Hypercholesteremia Type 2 diabetes mellitus Depression Peripheral neuropathy Lumbar spinal stenosis Lumbar disc herniation Chronic back pain Nephrolithiasis Family History Family History Mother Diabetes Hypertension Father Diabetes Hypertension Prostate cancer Family history of problems with anesthesia: No Surgical History Surgical History History of esophagogastroduodenoscopy (EGD) Hx of colonoscopy History of eye surgery History of cholecystectomy History of Problems with Anesthesia: No Social History Social History Housing: House Alcohol intake: never Patient Tobacco Use Status: Never used Tobacco e-Cigarette/Vaping Use: Never Used Second Hand Smoke Exposure: No service: No Current occupational status: disabled Cognitive needs: No Hearing needs: No Vision needs: No Meds Allergies Allergy/AdvReac Type Severity Reaction Status Date / Time No Known Allergies Allergy Verified 01/11/24 09:14 Home Medications ?Medication ?Instructions ?Recorded ?Confirmed ?Last Taken ?Type sertraline 100 mg tablet 100 mg PO DAILY 10/18/23 01/11/24 Unknown History Exam Height,Weight and Vital Signs: Height 5 ft 6 in Weight 72.575 kg Assessment and Plan Assessment Anesthesia Assessment: Chart Reviewed Final Anesthetic Review Family History of Problems with Anesthesia: No History of Problems with Anesthesia: No
--- NOTE | ~2024-01-11 | XR_ITS ---
EXAMINATION: XR ABDOMEN KUB CLINICAL INDICATION: Evaluate kidney stones. COMPARISON: KUB from 11/15/2023. Renal ultrasound from 09/14/2023 TECHNIQUE: AP view of the abdomen. FINDINGS: Large amount fecal material is present in the colon and this interferes with evaluation the kidneys. No dilated bowel loops. Cholecystectomy clips in the right upper quadrant of the abdomen. 0.7 cm calcific density projects over the mid right kidney. This is unchanged compared to 11/15/2023. An opacity that measures approximately 0.5 cm projects over the lower pole of the left kidney. On these radiographs it is difficult to determine whether this is due to bowel content or a renal stone. Since a calcific density was seen in this area on 11/15/2023, it very likely represents a renal stone. No acute osseous abnormality. XR/XR KUB IMPRESSION: * The evaluation of the kidneys is limited by large amount of fecal material within the colon. * There appears to be persistent bilateral nephrolithiasis -- as seen on 11/15/2023.
[2024-01-11 09:08] LABS: UPreg QC Valid YES; Urine Pregnancy NEGATIVE (NEGATIVE)
[2024-01-11 09:11] LABS: Glucose, Whole Blood 84 mg/dL (60-115)
--- NOTE | 2024-01-11 09:22 | MHC.SHP ---
Pre-Procedural Eval Section A - 24 Hr Update-Section A only Date of Service: 01/11/24 The patient is an INPATIENT: No Changes since office visit: No Cold of Flu in the past 2 weeks, No New Medical Problems, No Changes in Medication and No Patient answered all questions The patient has been examined within 24 hours of the surgical procedure. The History & Physical has been completed within 30 days and I have reviewed it.: No Section B - Complete if H&P > 30 days Chief Complaint: Calculus of kidney Details of Present Illness: right renal stone Relevant Social History: None Present Medications: see Short Stay Collaborative assessment Medical History: No relevant PMH History of Previous Operations: No relevant previous surgery Allergies: Allergies Allergy/AdvReac Type Severity Reaction Status Date / Time No Known Allergies Allergy Verified 01/11/24 09:14 Review of Systems Sugical H&P ROS: Negative: Constitution, Cardiovascular, Respiratory, Neurological, Psychiatric, Hem-Onc, Allergic/Immunologic, Gastrointestinal, Genitourinary, Musculoskeletal, Integumentary, Endocrine and Eyes/Ears/Nose/Throat Exam Surgical H&P Exam: Normal: HEENT, Normal: Heart, Normal: Lungs, Normal: Extremities, Normal: Abdomen, Normal: Skin and Normal: Neurological Plan Diagnosis/Plan: Unchanged (right eswl) I have reviewed the history and physical and performed a pertinent physical examination on my patient. No changes have occurred unless specified. Time Spent With Patient Time: Total time managing care of this patient today ____ minutes.
[2024-01-11 09:23] VITALS: BP 116/65; PULSE 64; RESP 16; TEMP 36.8; O2SAT 93; BMI 26.1
[2024-01-11] MEDS: Lactated Ringers 1,000 ML 999 ML IV (09:35)
--- NOTE | 2024-01-11 09:39 | HO.ANESPROP2 ---
PMF Active Problems Active Problems: aAll Active Problems GERD (gastroesophageal reflux disease) (Acute) Flank pain (Acute) Generalized anxiety disorder (Acute) MDD (major depressive disorder), recurrent episode, moderate (Acute) Hypercholesteremia (Acute) Breast cancer screening (Acute) Annual physical exam (Acute) Right knee pain (Acute) Gastritis (Acute) Sessile serrated polyp of colon (Acute) Type 2 diabetes mellitus (Acute) Well woman exam with routine gynecological exam (Acute) Encounter for screening examination for sexually transmitted disease (Acute) Lumbar spinal stenosis (Acute) Lumbar disc herniation (Acute) Chronic back pain (Acute) Cervical cancer screening (Acute) Nephrolithiasis (Acute) Rectal bleeding (Acute) Past Medical History Medical History GERD (gastroesophageal reflux disease) Generalized anxiety disorder Hypercholesteremia Type 2 diabetes mellitus Depression Peripheral neuropathy Lumbar spinal stenosis Lumbar disc herniation Chronic back pain Nephrolithiasis Functional capacity: independent ambulation Family History Family History Mother Diabetes Hypertension Father Diabetes Hypertension Prostate cancer Family history of problems with anesthesia: No Surgical History Surgical History History of esophagogastroduodenoscopy (EGD) Hx of colonoscopy History of eye surgery History of cholecystectomy History of Problems with Anesthesia: No Social History Social History Housing: House Alcohol intake: never Patient Tobacco Use Status: Never used Tobacco e-Cigarette/Vaping Use: Never Used Second Hand Smoke Exposure: No Use of substances other than those prescribed or required for medical reasons: No Are you DNR?: No Advance Directives: No Advance Directives Information Provided: Yes service: No Current occupational status: disabled Cognitive needs: No Hearing needs: No Vision needs: No Meds Allergies Allergy/AdvReac Type Severity Reaction Status Date / Time No Known Allergies Allergy Verified 01/11/24 09:14 Active Medications: Current Medications Lactated Ringer's (Lr) 1,000 mls @ 999 mls/hr IV .Q1H1M CAMI Stop: 01/11/24 10:00 Last Admin: 01/11/24 09:35 Dose: 999 mls/hr Lactated Ringer's (Lr) 1,000 mls @ 100 mls/hr IVCONT .Q10H CAMI Home Medications ?Medication ?Instructions ?Recorded ?Confirmed ?Last Taken ?Type sertraline 100 mg tablet 100 mg PO DAILY 10/18/23 01/11/24 Unknown History tamsulosin 0.4 mg capsule 0.4 mg PO DAILY 10/18/23 01/11/24 Unknown History Exam Height,Weight and Vital Signs: Height 5 ft 6 in Weight 73.482 kg Last Vital Signs Temp 98.2 F 01/11/24 09:23 Pulse 64 01/11/24 09:23 Resp 16 01/11/24 09:23 BP 116/65 01/11/24 09:23 Pulse Ox 93 01/11/24 09:23 O2 Del Method Room Air 01/11/24 09:23 Pertinent Lab Results Pertinent Lab Results: Laboratory Tests 01/11/24 01/11/24 08:45 09:08 POC Glucose 84 Urine Test NEGATIVE Airway Mallampati Class: II TM Dist: >3cm Neck ROM: Full Heart: RrR Lungs: CTA Assessment and Plan Assessment Anesthesia Assessment: Anesthesia Plan Discussed Final Anesthetic Review Family History of Problems with Anesthesia: No History of Problems with Anesthesia: No ASA Class: II Final Preanesthetic Review: Meds/Allgs Chart Reviewed, Consent Obtained/Reviewed and Anes Risks/Benef Reviewed Patient Risk: Low Procedure Risk: Low Anesthetic Plan Anesthetic Plan: MAC: Disposition: Standard PACU
--- NOTE | 2024-01-11 10:21 | W.PM.OPN ---
Operative Note Operative Note Date of Service: 01/11/24 Narrative: PreOperative Diagnosis: right Renal stones Post Operative Diagnosis: right Renal stones Procedure: right ESWL Surgeon: Dr Joshua Lucas Anesthesia: mac/sedation Indications for procedure: The patient understands ESWL may be a staged procedure and subsequent intervention may be required based on imaging after ESWL. Quoted stone clearance rates for a solitary procedure are in the 70-80% range based primarily on stone location. They also understand there is a risk of bleeding to the kidney, infection, damage to adjacent organs, and stone migration following the procedure. - Imaging Renal US 8 mm right mid Procedure optimization has been performed with IV acetaminophen given in the holding area and 1 L of lactated Ringer's to be given in order to optimize the fluid-stone interface. 20 mg of IV Lasix will be given in the last 5 minutes of the procedure to optimize stone clearance. Procedure: After informed consent was verified the patient was brought to the operating room and placed in a supine position. Anesthesia was performed per protocol. Safety pause time-out was performed. Imaging was displayed in the room and laterality confirmed. ESWL was performed. The 1st 500 shocks were performed at 60 hertz. These were performed with increasing power. Once maximum power was reached the rate was increased to 180 hertz. A total of 2500 shocks were given. Targeted imaging with ultrasound/fluoroscopy showed stone smudging suggestive of disintegration. The patient tolerated the procedure well and was transferred to the recovery area upon completion. Post procedure imaging will be organized. There was no evidence for flank discoloration.
--- NOTE | 2024-01-11 10:41 | HO.ANESPROP2 ---
[facility] Active Problems Active Problems: All Active Problems GERD (gastroesophageal reflux disease) (Acute) Flank pain (Acute) Generalized anxiety disorder (Acute) MDD (major depressive disorder), recurrent episode, moderate (Acute) Hypercholesteremia (Acute) Breast cancer screening (Acute) Annual physical exam (Acute) Right knee pain (Acute) Gastritis (Acute) Sessile serrated polyp of colon (Acute) Type 2 diabetes mellitus (Acute) Well woman exam with routine gynecological exam (Acute) Encounter for screening examination for sexually transmitted disease (Acute) Lumbar spinal stenosis (Acute) Lumbar disc herniation (Acute) Chronic back pain (Acute) Cervical cancer screening (Acute) Nephrolithiasis (Acute) Rectal bleeding (Acute) Past Medical History Medical History GERD (gastroesophageal reflux disease) Generalized anxiety disorder Hypercholesteremia Type 2 diabetes mellitus Depression Peripheral neuropathy Lumbar spinal stenosis Lumbar disc herniation Chronic back pain Nephrolithiasis Functional capacity: independent ambulation Family History Family History Mother Diabetes Hypertension Father Diabetes Hypertension Prostate cancer Family history of problems with anesthesia: No Surgical History Surgical History History of esophagogastroduodenoscopy (EGD) Hx of colonoscopy History of eye surgery History of cholecystectomy History of Problems with Anesthesia: No Social History Social History Housing: House Alcohol intake: never Patient Tobacco Use Status: Never used Tobacco e-Cigarette/Vaping Use: Never Used Second Hand Smoke Exposure: No service: No Current occupational status: disabled Cognitive needs: No Hearing needs: No Vision needs: No Meds Allergies Allergy/AdvReac Type Severity Reaction Status Date / Time No Known Allergies Allergy Verified 01/11/24 09:14 Active Medications: Current Medications Lactated Ringer's (Lr) 1,000 mls @ 100 mls/hr IVCONT .Q10H CAMI Oxycodone HCl (Oxycodone Hcl Immed Release 5 Mg Tablet) 5 mg PO Q4H PRN PRN Reason: Breakthrough Pain Home Medications ?Medication ?Instructions ?Recorded ?Confirmed ?Last Taken ?Type sertraline 100 mg tablet 100 mg PO DAILY 10/18/23 01/11/24 Unknown History tamsulosin 0.4 mg capsule 0.4 mg PO DAILY 10/18/23 01/11/24 Unknown History Exam Height,Weight and Vital Signs: Height 5 ft 6 in Weight 73.482 kg Last Vital Signs Temp 98.2 F 01/11/24 09:23 Pulse 64 01/11/24 09:23 Resp 16 01/11/24 09:23 BP 116/65 01/11/24 09:23 Pulse Ox 93 01/11/24 09:23 O2 Del Method Room Air 01/11/24 09:23 Pertinent Lab Results Pertinent Lab Results: Laboratory Tests 01/11/24 01/11/24 08:45 09:08 POC Glucose 84 Urine Test NEGATIVE Airway Mallampati Class: II TM Dist: >3cm Neck ROM: Full Heart: RRR Lungs: CTA Assessment and Plan Assessment Anesthesia Assessment: Anesthesia Plan Discussed Final Anesthetic Review Family History of Problems with Anesthesia: No History of Problems with Anesthesia: No NPO: Yes ASA Class: II Final Preanesthetic Review: Meds/Allgs Chart Reviewed, Consent Obtained/Reviewed and Anes Risks/Benef Reviewed Patient Risk: Low Procedure Risk: Low Anesthetic Plan Anesthetic Plan: MAC: Disposition: Standard PACU
[2024-01-11] MEDS: Lactated Ringers 1,000 ML 100 ML IVCONT (10:50)
[2024-01-11 10:59] VITALS: BP 104/57; PULSE 53; RESP 16; TEMP 36.4; O2SAT 99
[2024-01-11 11:14] VITALS: BP 116/63; PULSE 49; RESP 16; O2SAT 99
[2024-01-11] MEDS: Ketorolac Tromethamine 15 MG/ML VIAL IVPUSH (11:17)
[2024-01-11 11:29] VITALS: BP 126/69; PULSE 55; RESP 18; TEMP 36.3; O2SAT 100
--- NOTE | 2024-01-11 12:12 | HO.POSTANES ---
Post Anesthesia Evaluation Post Anesthesia Evaluation Date of Service: 01/11/24 Vital Signs: Vital Signs Temp Pulse Resp BP Pulse Ox O2 Del Method 01/11/24 11:29 97.4 F 55 18 126/69 100 Room Air 01/11/24 11:14 49 L 16 116/63 99 Room Air 01/11/24 10:59 97.6 F 53 16 104/57 L 99 Room Air 01/11/24 09:23 98.2 F 64 16 116/65 93 Room Air Anesthesia: Monitored Mental Status: Awake Pain Control: Satisfactory Nausea/Vomiting: None Hydration: Adequate Anesthesia-Related Issues: No Anes. Related Issues
== END 2024-01-11 12:13 | disposition home or self-care (01) ==
PROVIDERS: Anesthesiology; PCP Physician Assistant; Visit Provider Urology
PROC: (CPT 50590; principal; 2024-01-11 09:50)
DX: N20.0 Calculus of kidney (principal); Z87.442 Personal history of urinary calculi; R10.9 Unspecified abdominal pain; G62.9 Polyneuropathy, unspecified; K21.9 Gastro-esophageal reflux disease without esophagitis; E78.00 Pure hypercholesterolemia, unspecified; E11.9 Type 2 diabetes mellitus without complications; G89.4 Chronic pain syndrome; M54.50 Low back pain, unspecified; F41.8 Other specified anxiety disorders; Z79.4 Long term (current) use of insulin; Z79.84 Long term (current) use of oral hypoglycemic drugs; Z79.85 Long-term (current) use of injectable non-insulin antidiabetic drugs; Z79.899 Other long term (current) drug therapy; Z90.49 Acquired absence of other specified parts of digestive tract
CPT/HCPCS: 50590; 36415; 74018; 80053; 80061; 81025; 82043; 82306; 82570; 82947; 85027; J0131; J1100; J1885; J2250; J2405; J2704; J3010

== ENCOUNTER → 2024-01-11 08:03 | Outpatient (BNV) | payer MEDICARE, MEDICAID, SELFPAY | PROVIDERS: PCP Physician Assistant; Visit Provider Urology | DX: N20.0 Calculus of kidney (principal) | CPT/HCPCS: 50590 ==

== ENCOUNTER 2024-02-08 05:43 | Day surgery (SDC) | payer MEDICARE, MEDICAID, SELFPAY ==
[2024-02-06 13:38] VITALS: BMI 26.1
--- NOTE | 2024-02-07 08:59 | P.CONAN_ITS ---
Documented by User: Nancy Arambula NP 02/07/24 09:00 HPI - Anesthesia Eval Consult details Narrative: 53yo F for Left ESWL s/p ERight side 01/11/24 with TIVA Anesthesia Pre-Procedure Meds Is the patient on any of the following meds?: GLP1/DPP4 and SGLT2 Inhib PMFSH Active Problems Active Problems: All Active Problems Flank pain (Acute) MDD (major depressive disorder), recurrent episode, moderate (Acute) Breast cancer screening (Acute) Annual physical exam (Acute) Right knee pain (Acute) Gastritis (Acute) Sessile serrated polyp of colon (Acute) Well woman exam with routine gynecological exam (Acute) Encounter for screening examination for sexually transmitted disease (Acute) Cervical cancer screening (Acute) Rectal bleeding (Acute) GERD (gastroesophageal reflux disease) (Acute) Generalized anxiety disorder (Acute) Hypercholesteremia (Acute) Type 2 diabetes mellitus (Acute) Lumbar spinal stenosis (Acute) Lumbar disc herniation (Acute) Chronic back pain (Acute) Nephrolithiasis (Acute) Past Medical History Medical History Lumbar spinal stenosis Lumbar disc herniation Chronic back pain Hypercholesteremia Depression Generalized anxiety disorder Peripheral neuropathy Nephrolithiasis Type 2 diabetes mellitus GERD (gastroesophageal reflux disease) Family History Family History Mother Diabetes Hypertension Father Diabetes Hypertension Prostate cancer Family history of problems with anesthesia: No Surgical History Surgical History Hx of lithotripsy History of esophagogastroduodenoscopy (EGD) Hx of colonoscopy History of eye surgery History of cholecystectomy History of Problems with Anesthesia: No Social History Social History Housing: House Alcohol intake: never Patient Tobacco Use Status: Never used Tobacco e-Cigarette/Vaping Use: Never Used Second Hand Smoke Exposure: No service: No Current occupational status: disabled Cognitive needs: No Hearing needs: No Vision needs: No Meds Allergies Allergy/AdvReac Type Severity Reaction Status Date / Time No Known Allergies Allergy Verified 02/08/24 06:58 Home Medications ?Medication ?Instructions ?Recorded ?Confirmed ?Last Taken ?Type sertraline 100 mg tablet 100 mg PO DAILY 10/18/23 02/08/24 Unknown History Exam Height,Weight and Vital Signs: Height 5 ft 6 in Weight 73.482 kg Pertinent Lab Results Pertinent Lab Results: Laboratory Tests 01/11/24 07:38 WBC 7.2 Hgb 13.9 Hct 43.0 Plt Count 254 Sodium 142 Potassium 4.0 Chloride 108 Carbon Dioxide 25 BUN 18 H Creatinine 0.82 Assessment and Plan Final Anesthetic Review Family History of Problems with Anesthesia: No History of Problems with Anesthesia: No Documented by User: Kg Tierney MD 02/08/24 08:23 PMFSH Past Medical History Medical History Lumbar spinal stenosis Lumbar disc herniation Chronic back pain Hypercholesteremia Depression Generalized anxiety disorder Peripheral neuropathy Nephrolithiasis Type 2 diabetes mellitus GERD (gastroesophageal reflux disease) Patient : No Family History Family History Mother Diabetes Hypertension Father Diabetes Hypertension Prostate cancer Surgical History Surgical History Hx of lithotripsy History of esophagogastroduodenoscopy (EGD) Hx of colonoscopy History of eye surgery History of cholecystectomy Social History Social History Housing: House Alcohol intake: never Patient Tobacco Use Status: Never used Tobacco e-Cigarette/Vaping Use: Never Used Second Hand Smoke Exposure: No service: No Current occupational status: disabled Cognitive needs: No Hearing needs: No Vision needs: No Meds Allergies Allergy/AdvReac Type Severity Reaction Status Date / Time No Known Allergies Allergy Verified 02/08/24 06:58 Home Medications ?Medication ?Instructions ?Recorded ?Confirmed ?Last Taken ?Type sertraline 100 mg tablet 100 mg PO DAILY 10/18/23 02/08/24 Unknown History Exam Airway Mallampati Class: I TM Dist: >3cm Neck ROM: Full Loose/Missing/Broken Teeth: No Heart: ok Lungs: ok Assessment and Plan Assessment Anesthesia Assessment: Anesthesia Plan Discussed and Chart Reviewed Final Anesthetic Review NPO: Yes ASA Class: II Final Preanesthetic Review: No Changes in Pt Med Stat, Meds/Allgs Chart Review ed, Consent Obtained/Reviewed and Anes Risks/Benef Reviewed Patient Risk: Low Procedure Risk: Low Anesthetic Plan Anesthetic Plan: Agree w/ Assess. and Plan and TIVA Disposition: Standard PACU
--- NOTE | ~2024-02-08 | XR_ITS ---
EXAMINATION: XR ABDOMEN KUB CLINICAL INDICATION: Left renal stone COMPARISON: 01/11/24 TECHNIQUE: AP view of the abdomen. FINDINGS: There are surgical clips in the right upper quadrant. The renal contours are partially obscured by a large amount of fecal residue. There is an approximately 0.6 cm calcification projecting over the expected region of the mid left kidney. The calcification superimposing over the region of the right kidney on the previous study is no longer demonstrated. There are proliferative changes in the spine greatest at L4/L5. XR/XR KUB IMPRESSION: Calcification projecting over the mid left kidney. No definite opaque right-sided calculus demonstrated
[2024-02-08 06:47] VITALS: BMI 25.0
[2024-02-08 06:50] VITALS: BP 115/65; PULSE 65; RESP 15; TEMP 36.6; O2SAT 99
[2024-02-08 07:02] LABS: UPreg QC Valid YES; Urine Pregnancy NEGATIVE (NEGATIVE)
[2024-02-08 07:04] LABS: Glucose, Whole Blood 70 mg/dL (60-115)
[2024-02-08] MEDS: Lactated Ringers 1,000 ML 100 ML IVCONT (07:08)
[2024-02-08] MEDS: Acetaminophen 1,000 MG/100 ML PIGGYBACK 400 MG IV (07:15)
[2024-02-08] MEDS: Dextrose 5 % 1,000 ML 999 ML IV (07:42)
--- NOTE | 2024-02-08 07:57 | P.HPSUR_ITS ---
Pre-Procedural Eval Section A - 24 Hr Update-Section A only Date of Service: 02/08/24 The patient is an INPATIENT: No Changes since office visit: No Cold of Flu in the past 2 weeks, No New Medical Problems, No Changes in Medication and No Patient answered all questions The patient has been examined within 24 hours of the surgical procedure. The History & Physical has been completed within 30 days and I have reviewed it.: No Section B - Complete if H&P > 30 days Chief Complaint: Calculus of kidney Details of Present Illness: left eswl Relevant Family History (Specify if Yes): No Relevant Social History: None Present Medications: see Short Stay Collaborative assessment Medical History: No relevant PMH History of Previous Operations: Relevant previous surgery/procedure and date(s) Allergies: Allergies Allergy/AdvReac Type Severity Reaction Status Date / Time No Known Allergies Allergy Verified 02/08/24 06:58 Review of Systems Sugical H&P ROS: Negative: Constitution, Cardiovascular, Respiratory, Neurological, Psychiatric, Hem-Onc, Allergic/Immunologic, Gastrointestinal, Genitourinary, Musculoskeletal, Integumentary, Endocrine and Eyes/Ears/Nose/Thro at Exam Surgical H&P Exam: Normal: HEENT, Normal: Heart, Normal: Lungs, Normal: Extremities, Normal: Abdomen, Normal: Skin and Normal: Neurological Plan Diagnosis/Plan: Unchanged I have reviewed the history and physical and performed a pertinent physical examination on my patient. No changes have occurred unless specified. Time Spent With Patient Time: Total time managing care of this patient today ____ minutes.
--- NOTE | 2024-02-08 08:40 | P.OP_ITS ---
Operative Note Operative Note Date of Service: 02/08/24 Narrative: PreOperative Diagnosis: left Renal stones Post Operative Diagnosis: left Renal stones Procedure: left ESWL Surgeon: Dr Joshua Lucas Anesthesia: mac/sedation Indications for procedure: The patient understands ESWL may be a staged procedure and subsequent intervention may be required based on imaging after ESWL. Quoted stone clearance rates for a solitary procedure are in the 70-80% range based primarily on stone location. They also understand there is a risk of bleeding to the kidney, infection, damage to adjacent organs, and stone migration following the procedure. - Imaging 7mm left Procedure optimization has been performed with IV acetaminophen given in the holding area and 1 L of lactated Ringer's to be given in order to optimize the fluid-stone interface. 20 mg of IV Lasix will be given in the last 5 minutes of the procedure to optimize stone clearance. Procedure: After informed consent was verified the patient was brought to the operating room and placed in a supine position. Anesthesia was performed per protocol. Safety pause time-out was performed. Imaging was displayed in the room and laterality confirmed. ESWL was performed. The 1st 500 shocks were performed at 60 hertz. These were performed with increa sing power. Once maximum power was reached the rate was increased to 180 hertz. A total of 2500 shocks were given. Targeted imaging with ultrasound/fluoroscopy showed stone smudging suggestive of disintegration. The patient tolerated the procedure well and was transferred to the recovery area upon completion. Post procedure imaging will be organized. There was no evidence for flank discoloration.
[2024-02-08 08:52] VITALS: BP 103/63; PULSE 67; RESP 16; TEMP 36.2; O2SAT 100
[2024-02-08 08:55] LABS: Glucose, Whole Blood 153 mg/dL (60-115)
[2024-02-08 08:57] VITALS: BP 116/67; PULSE 58; RESP 14; O2SAT 100
[2024-02-08 09:02] VITALS: BP 118/70; PULSE 64; RESP 15; O2SAT 99
[2024-02-08 09:07] VITALS: BP 123/72; PULSE 60; RESP 16; O2SAT 99
[2024-02-08 09:22] VITALS: BP 127/71; PULSE 61; RESP 15; TEMP 36.3; O2SAT 100
== END 2024-02-08 09:44 | disposition home or self-care (01) ==
PROVIDERS: Nurse Practitioner; PCP Physician Assistant; Visit Provider Urology
PROC: (CPT 50590; principal; 2024-02-08 08:10)
DX: N20.0 Calculus of kidney (principal); Z87.442 Personal history of urinary calculi; E11.9 Type 2 diabetes mellitus without complications; G62.9 Polyneuropathy, unspecified; E78.00 Pure hypercholesterolemia, unspecified; K21.9 Gastro-esophageal reflux disease without esophagitis; G89.29 Other chronic pain; F41.8 Other specified anxiety disorders; M48.061 Spinal stenosis, lumbar region without neurogenic claudication; M51.26 Other intervertebral disc displacement, lumbar region; Z79.4 Long term (current) use of insulin; Z79.84 Long term (current) use of oral hypoglycemic drugs; Z79.85 Long-term (current) use of injectable non-insulin antidiabetic drugs; Z79.899 Other long term (current) drug therapy; Z98.890 Other specified postprocedural states
CPT/HCPCS: 50590; 74018; 81025; 82947; J0131; J1885; J1940; J2704; J3010

== ENCOUNTER → 2024-02-08 05:43 | Outpatient (BNV) | payer MEDICARE, MEDICAID, SELFPAY | PROVIDERS: PCP Physician Assistant; Visit Provider Urology | DX: N20.0 Calculus of kidney (principal) | CPT/HCPCS: 50590 ==

== ENCOUNTER 2024-03-08 11:42 | Outpatient (REF) | payer MEDICARE, MEDICAID, SELFPAY ==
--- NOTE | ~2024-03-08 | US_ITS ---
EXAMINATION: US RETROPERITONEAL COMPLETE (RENAL) CLINICAL INFORMATION: Renal calculus. COMPARISON: KUB dated 02/08/2024; renal ultrasound dated 09/14/2023. TECHNIQUE: Real-time imaging of the kidneys and bladder. FINDINGS: RIGHT KIDNEY: 9.3 x 4.6 x 5.5 cm (SAG x AP x TRV). The kidney is normal in size, contour, and echogenicity. Renal cortical thickness is normal. No focal parenchymal lesions. At the upper pole, a 5 mm nonobstructing calculus is seen. No hydronephrosis. LEFT KIDNEY: 10.9 x 5.2 x 5.0 cm (SAG x AP x TRV). The kidney is normal in size, contour, and echogenicity. Renal cortical thickness is normal. No focal parenchymal lesions. At the interpolar aspect, a 6 mm nonobstructing calculus is seen. No hydronephrosis. US/US renal BI IMPRESSION: Nonobstructing bilateral renal calculi are seen, as detailed. There is no hydronephrosis. Electronically signed by: Raman Valle MD 03/22/2024 12:45 PM EDT
== END 2024-03-08 11:43 | disposition home or self-care (01) ==
LOC: HO.US 11:42
PROVIDERS: PCP Physician Assistant; Visit Provider Urology
DX: N20.0 Calculus of kidney (principal)
CPT/HCPCS: 76775

== ENCOUNTER 2024-03-16 10:02 | Outpatient (REF) | payer MEDICARE, MEDICAID, SELFPAY ==
[2024-03-24 03:59] LABS: Stone Source KIDNEY
== END 2024-03-16 10:03 | disposition home or self-care (01) ==
LOC: HO.LNP 10:02
PROVIDERS: PCP Physician Assistant; Visit Provider Nurse Practitioner Family
DX: N20.0 Calculus of kidney (principal)
CPT/HCPCS: 81003; 82365; 88300; 99212

== ENCOUNTER 2024-03-16 10:02 | Outpatient (AMB) | payer MEDICARE, MEDICAID, SELFPAY ==
--- NOTE | 2024-03-16 10:04 | MHC.OFFVIS ---
Intake Visit Reasons: BI ESWL follow up Intake Note: Patient presents for post op visit ESWL Urology Medications: None Blood Thinner: none Performance Tester Required: Yes Performance Tester Services: Performance Tester Present Performance Tester Name: Doug Accompanied by: Self / Same As Patient Allergies No Known Allergies Allergy (Verified 03/16/24 13:28) Medication List - Last Reconciled 03/16/24 by LUISA Hansen atorvastatin 40 mg PO DAILY blood sugar diagnostic (Accu-Chek Guide test strips) HACER PRUEBA DE AZUCAR EN LISBET HASTA TON VECES AL ALECIA ALEX INDICADO blood-glucose meter (OneTouch Verio Flex Start kit) As directed clonazepam 0.5 mg PO Q6H dapagliflozin propanediol (Farxiga) 10 mg PO DAILY 90 days dulaglutide (Trulicity) 0.75 mg (0.5 mL) subcut QWEEK 90 days gabapentin 300 mg PO TID 90 days gemfibrozil 600 mg PO DAILY 90 days insulin aspart U-100 (Novolog FlexPen U-100 Insulin aspart) 30 units (0.3 mL) topical TID insulin glargine (Lantus Solostar U-100 Insulin) 60 units (0.6 mL) subcut QPM metformin ER 500 mg PO DAILY 90 days metronidazole 500 mg PO Q12H naproxen 500 mg PO BID PRN 7 days oxycodone 5 mg PO Q8H PRN 3 days pantoprazole 40 mg PO DAILY 90 days sertraline 100 mg PO DAILY HPI Comments Details: Sammy is a very pleasant 53 year-old Portuguese-speaking female patient of Dr. Acosta. She has a past medical history of diabetes, cholesterol, GERD, nephrolithiasis, depression and anxiety. She presents to the office today for follow-up of her nephrolithiasis. Of note, patient underwent left-sided ESWL with Dr. Lucas 02/08/24. In discussion with the patient today she reports since her surgical procedure she has been doing and feeling well. She brings with her to the office today fragments that she has since urinated. Discussed sending for stone analysis. Recent renal imaging results reviewed with the patient today. Bilateral kidneys are normal in size, contour, and echogenicity. Left upper pole 5 mm nonobstructing calculus is seen. At the interpolar aspect a 6 mm nonobstructing calculus is seen on the left side. No hydronephrosis noted bilaterally. She currently denies urinary urgency, urinary frequency, incontinence, nocturia, hematuria, dysuria, foul smelling urine, changes to urinary stream, fever, and or chills. She is happy with her current voiding parameters. She otherwise denies any other issues or concerns at this time. [facility] Medical History Lumbar spinal stenosis Lumbar disc herniation Chronic back pain Hypercholesteremia Depression Generalized anxiety disorder Peripheral neuropathy Nephrolithiasis Type 2 diabetes mellitus GERD (gastroesophageal reflux disease) Surgical History Hx of lithotripsy History of esophagogastroduodenoscopy (EGD) Hx of colonoscopy History of eye surgery History of cholecystectomy Family History Mother Diabetes Hypertension Father Diabetes Hypertension Prostate cancer Social History Housing: House Alcohol intake: never Patient Tobacco Use Status: Never used Tobacco e-Cigarette/Vaping Use: Never Used Second Hand Smoke Exposure: No service: No Current occupational status: disabled Cognitive needs: No Hearing needs: No Vision needs: No Female Reproductive History Menstrual Age of Menarche: 14 Review of Systems Const Reports no additional complaints Eyes Reports no additional complaints ENT Reports no additional complaints Card Reports as per HPI Resp Reports no additional complaints GI Reports as per HPI Reports as per HPI Musc Reports no additional complaints Neuro Reports no additional complaints Psych Reports as per HPI Endo Reports as per HPI Ramiro/Lymph Reports no additional complaints Aller/Immun Reports no additional complaints Physical Exam Const General: cooperative, healthy appearing, comfortable, no acute distress, well developed, alert and awake Orientation/consciousness: patient oriented x3 Limitations: no limitations Resp Effort & Inspection: normal respiratory effort and able to speak in complete sentences Neuro General: patient oriented x3 Psych Appearance: grossly normal and well kempt Mental Status: mental status grossly normal Speech and movement: Normal speech and movement present Affect: normal affect Attitude: cooperative Thought process: Normal thought process present Thought content: Normal thought content present Insight: Fair insight present (Psych) Judgement: Fair judgement present (Psych) Results AMB Urinalysis, Automated UA Leukoctes 0 Toi/uL Last Edit by [employer] on 03/16/24 10:29 UA Nitrite Last Edit by [employer] on 03/16/24 10:29 UA Urobilinogen 0.2 mg/dL Last Edit by [employer] on 03/16/24 10:29 UA Protein 0 mg/dL Last Edit by [employer] on 03/16/24 10:29 UA pH 6.0 Last Edit by [employer] on 03/16/24 10:29 UA Blood 0 Shadi/uL Last Edit by [employer] on 03/16/24 10:29 UA Specific [place] 1.015 Last Edit by [employer] on 03/16/24 10:29 UA Ketone Last Edit by [employer] on 03/16/24 10:29 UA Bilirubin 0 mg/dL Last Edit by [employer] on 03/16/24 10:29 UA Glucose 1000 mg/dL Last Edit by [employer] on 03/16/24 10:29 Results Reviewed Results Reviewed: Laboratory Last Values Urine pH (Auto) 6.0 03/16/24 10: Specific [place] (Auto) 1.015 03/16/24 10:26 Urine Protein (Auto) 0 mg/dL 03/16/24 10:26 Glucose (UA)(Auto) 1000 mg/dL 03/16/24 10:26 Urine Blood (Auto) 0 Shadi/uL 03/16/24 10:26 Urine Bilirubin (Auto) 0 mg/dL 03/16/24 10:26 Urine Urobilinogen (Auto) 0.2 mg/dL 03/16/24 10:26 Leukocyte Esterase (Auto) 0 Toi/uL 03/16/24 10:26 Date of Service: 03/08/24 EXAMINATION: US RETROPERITONEAL COMPLETE (RENAL) FINDINGS: RIGHT KIDNEY: 9.3 x 4.6 x 5.5 cm (SAG x AP x TRV). The kidney is normal in size, contour, and echogenicity. Renal cortical thickness is normal. No focal parenchymal lesions. At the upper pole, a 5 mm nonobstructing calculus is seen. No hydronephrosis. LEFT KIDNEY: 10.9 x 5.2 x 5.0 cm (SAG x AP x TRV). The kidney is normal in size, contour, and echogenicity. Renal cortical thickness is normal. No focal parenchymal lesions. At the interpolar aspect, a 6 mm nonobstructing calculus is seen. No hydronephrosis. IMPRESSION: Nonobstructing bilateral renal calculi are seen, as detailed. There is no hydronephrosis. Assessment & Plan Assessment & Plan (1) Nephrolithiasis: Code(s): N20.0 - Calculus of kidney Category: Medical Plan In office urinalysis results reviewed with the patient today; as noted above. Recent renal imaging results reviewed with the patient today; as noted above. Will send stone fragments for further assessment evaluation. Patient currently denies any bothersome urinary issues or concerns. Discussed, educated, and stressed the importance of adequate hydration relation to nephrolithiasis as well as overall health and well-being. Will obtain 24 hour urine collection for further assessment evaluation. She is happy with current voiding parameters. Follow-up in 3 months with KUB and 24 hour urine; or sooner with any issues, concerns, and or questions. Orders: Orders AMB Urinalysis Automated 03/16/24 Z13.9 - Encounter for screening, unspecified Surgical 03/16/24 N20.0 - Calculus of kidney URORISK 03/16/24 N20.0 - Calculus of kidney XR KUB 3 Months N20.0 - Calculus of kidney Medications: Discontinued naproxen Discontinued Reason: Patient Completed Course 500 mg PO BID 7 days PRN 14 tabs 0RF pain oxycodone Partial Fill upon patient request. Discontinued Reason: Patient Completed Course 5 mg PO Q8H 3 days PRN 8 tabs 0RF pain Patient Instructions: The patient had an opportunity to ask questions regarding the treatment plan. All questions were answered. Physical exam, labs, and imaging were discussed and reviewed in detail. As well as risks, benefits, and discussion of treatment choices. No major barriers to understanding were identified. The patient expressed understanding and agreement with the above treatment plan. The patient was made aware they should contact our office by phone for worsening of their current condition, the appearance of new symptoms, or with any questions or concerns. Compliance is encouraged with any medications and follow up testing that is ordered. It is a privilege to be allowed the opportunity to participate in? your urological care.? Again, if you have any questions or concerns If you have any questions or concerns please do not hesitate to contact me. The office is [phone]. This note is constructed using voice recognition software. While every effort has been made to ensure accuracy registered physical therapist errors may have been included. Yours sincerely, LUISA Hansen Coding Level of Care Code Est Pt Level 3 (55192) Diagnoses Nephrolithiasis N20.0
== END 2024-03-16 11:05 | disposition home or self-care (01) ==
PROVIDERS: PCP Physician Assistant; Visit Provider Nurse Practitioner Family
DX: N20.0 Calculus of kidney (principal)
CPT/HCPCS: 99024

== ENCOUNTER 2024-03-28 08:38 | Outpatient (AMB) | payer MEDICARE, MEDICAID, SELFPAY ==
--- NOTE | 2024-03-28 08:57 | MHC.PC.OV ---
Vital Signs 03/28/24 08:58 Height 5 ft 6 in Weight 163 lb BMI 26.3 BP 100/70 Blood Pressure Location Lt brachial Position Sitting Pulse 73 Pulse Source Pulse Oximeter Pulse Oximetry (%) 97 Oxygen Delivery Method Room Air Intake Visit Reasons: f/u DMII Intake Note: Patient is here to follow up on DM. Job Forwarder Required: Yes Job Forwarder Language: Competitive Athlete Name: Abril ([id number]) Information Interpreted: non-clinical & clinical Hand Umbrella Tipper: Not Required per policy Accompanied by: Self / Same As Patient Allergies No Known Allergies Allergy (Verified 03/28/24 09:12) Medication List - Last Reconciled 03/28/24 by Bill Disla PA-C atorvastatin 40 mg PO DAILY blood sugar diagnostic (Accu-Chek Guide test strips) HACER PRUEBA DE AZUCAR EN LISBET HASTA TON VECES AL ALECIA ALEX INDICADO blood-glucose meter (OneTouch Verio Flex Start kit) As directed clonazepam 0.5 mg PO Q6H dapagliflozin propanediol (Farxiga) 10 mg PO DAILY 90 days dulaglutide (Trulicity) 0.75 mg (0.5 mL) subcut QWEEK 90 days gabapentin 300 mg PO TID 90 days insulin aspart U-100 (Novolog FlexPen U-100 Insulin aspart) 30 units (0.3 mL) topical TID insulin glargine (Lantus Solostar U-100 Insulin) 60 units (0.6 mL) subcut QPM metformin ER 500 mg PO DAILY 90 days metronidazole 500 mg PO Q12H pantoprazole 40 mg PO DAILY 90 days sennosides-docusate sodium 8.6-50 mg 2 tab-caps (2 x 8.6-50 mg) PO BEDTIME 60 days NS sertraline 100 mg PO DAILY Tobacco use date assessed: 03/28/24 Dental Screening Dental Screen Date: 11/24/23 HPI f/u DMII HPI Details Patient is a 53-year-old female here today for a follow-up visit. This is my 2nd time meeting this Iranian-speaking 53-year-old female.. Patient is Iranian-speaking only thus need to use a admitting representative today in office. Patient has a past medical history significant for type 2 diabetes, major depressive disorder, gastritis, chronic low back pain. Concerns--> she mentioned she has been having some throat discomfort over the last 2 months. She attributes this to having some kind of cold though has been evident over the last 2 months. She does reports more discomfort in her throat when swallowing. Of note does have history of GERD to which he takes pantoprazole for. .. Type 2 diabetes: Her diabetes has been well controlled with current anti hyperglycemic/ insulin therapy. A1c today at 6.3. .. 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 Laboratory Tests 05/05/23 01/11/24 02/08/24 09:09 07:38 08:51 RBC 4.53 POC Glucose 153 H Hgb A1c (Clinic) Hemoglobin A1c % 6.5 H 03/28/24 08:57 RBC POC Glucose Hgb A1c (Clinic) 6.3 H Hemoglobin A1c % [facility] Medical History Lumbar spinal stenosis Lumbar disc herniation Chronic back pain Hypercholesteremia Depression Generalized anxiety disorder Peripheral neuropathy Nephrolithiasis Type 2 diabetes mellitus GERD (gastroesophageal reflux disease) Surgical History Hx of lithotripsy History of esophagogastroduodenoscopy (EGD) Hx of colonoscopy History of eye surgery History of cholecystectomy Family History Mother Diabetes Hypertension Father Diabetes Hypertension Prostate cancer Social History Housing: House Alcohol intake: never Patient Tobacco Use Status: Never used Tobacco e-Cigarette/Vaping Use: Never Used Second Hand Smoke Exposure: No service: No Current occupational status: disabled Cognitive needs: No Hearing needs: No Vision needs: No Female Reproductive History Menstrual Age of Menarche: 14 Questionnaire Thrive Questionnaire Date Thrive assessed: 11/24/23 JOSE MANUEL-7 AMB Questionnaire JOSE MANUEL-7 Date JOSE MANUEL - 7 assessed: 11/24/23 (Pt is seeing Dr. Alvarez through zoom. ) Source: Developed by Drs. Ricky Castillo, Mai Aguilar, Huey Castillo and colleagues, with an educational bryon from [employer]. Review of Systems Const Denies headache(s) Eyes Denies loss of vision ENT Denies vertigo, Denies dizziness, Denies headache(s) and Reports sore throat Card Denies chest pain, Denies leg edema and Denies lightheadedness Resp Denies cough, Denies hemoptysis and Denies wheezing GI Denies abdominal pain, Denies melena, Denies constipation, Denies diarrhea and Denies vomiting Denies urinary frequency, Denies dysuria and Denies urinary urgency Musc Denies arthralgias, Denies joint swelling, Denies numbness and Denies tingling Neuro Denies Abnormal speech present, Denies behavioral changes, Denies vertigo, Denies dizziness, Denies headache(s), Denies loss of vision, Denies memory loss, Denies numbness and Denies tingling Psych Denies anxiety, Denies behavioral changes, Denies depression, Denies memory loss and Denies panic attacks Ramiro/Lymph Denies easy bleeding and Denies easy bruising Aller/Immun Denies wheezing Physical exam (Primary Care) Vital Signs: Last Vital Signs Pulse 73 03/28/24 08:58 BP 100/70 03/28/24 08:58 Pulse Ox 97 03/28/24 08:58 Oxygen Delivery Method Room Air 03/28/24 08:58 BMI result Body Mass Index 26.3 Tobacco/Smoking Status: Tobacco use Status Tobacco use date assessed 03/28/24 03/28/24 09:09 Patient Tobacco Use Status Never used Tobacco 03/28/24 09:09 e-Cigarette/Vaping Use Never Used 03/28/24 09:09 Thrive Assessment: Date of Thrive Assessment Date Thrive assessed 11/24/23 03/28/24 09:09 Const General: healthy appearing, no acute distress, alert and awake Nutritional Appearance: well nourished Orientation/consciousness: oriented to person, oriented to place and oriented to time HENMT Ears: TM's normal bilaterally General nose exam: Normal nasal mucous membranes and turbinates present Eyes Conjunctivae: conjunctivae normal Sclerae: sclerae normal Pupils: Equal, round and reactive pupils present Neck Neck: Yes no lymphadenopathy and Yes no JVD Thyroid: Thyroid normal Carotids: no bruits Resp Effort & Inspection: normal respiratory effort and not tachypneic Auscultation: no crackles, no rales, no rhonchi and no wheezes Cardio Rate: regular rate Rhythm: regular rhythm Heart sounds: no murmurs and normal S1 and S2 GI Palpation (GI): Soft to palpation, nontender, no hepatomegaly and no splenomegaly Auscultation: normal bowel sounds Skin General skin exam: no rashes or lesions noted and dry skin Neuro General: oriented to person, oriented to place and oriented to time Cranial nerves: Yes Equal, round and reactive pupils present Speech: No Abnormal speech present Gait exam (Neuro): Normal gait present Motor exam (neuro): no tremor noted Extrem Right upper extremity: full ROM Left upper extremity: full ROM Right lower extremity: full ROM; no edema Left lower extremity: full ROM; no edema Psych Mental Status: mental status grossly normal Speech and movement: Normal speech and movement present Affect: normal affect Attitude: cooperative Thought process: Normal thought process present Results AMB Hemoglobin A1c AMB Hemoglobin A1c 6.3 % Last Edit by DEANNA Vilchis on 03/28/24 09:11 Results Reviewed Results Reviewed: Laboratory Last Values Hgb A1c (Clinic) 6.3 % (4.0-6.0) H 03/28/24 08:57 Assessment and Plan Assessment & Plan (1) Type 2 diabetes mellitus: Code(s): E11.9 - Type 2 diabetes mellitus without complications Qualifiers: Diabetes mellitus complication status: with hyperglycemia Diabetes mellitus long-term insulin use: with long-term use Qualified Code(s): E11.65 - Type 2 diabetes mellitus with hyperglycemia; Z79.4 - rn long term care (current) use of insulin Plan: Patient's type 2 diabetes well controlled with A1c today at 6.3.. She is on fairly doses of insulin, Trulicity and continues on Farxiga 10 mg. Goal A1c is to remain below 7.0 (2) Dysphagia: Code(s): R13.10 - Dysphagia, unspecified Qualifiers: Dysphagia type: pharyngoesophageal phase Qualified Code(s): R13.14 - Dysphagia, pharyngoesophageal phase Plan: Patient reports a 2 month history of throat discomfort when she swallows. Will send for a swallowing evaluation to al for any esophageal rings or strictures. Will supply patient with Carafate liquid to help soothe throat as her GERD may be causing her throat discomfort. (3) MDD (major depressive disorder), recurrent episode, moderate: Code(s): F33.1 - Major depressive disorder, recurrent, moderate Plan: Patient has a history of depression. Continues to speak with a mental health therapist and has a med to help med provider. He feels her mental health is fairly stable. Orders: Orders AMB Hemoglobin A1c Today E11.65 - Type 2 diabetes mellitus with hyperglycemia, Z79.4 - rn long term care (current) use of insulin Complete Blood Count no Diff 4 Months K21.9 - Gastro-esophageal reflux disease without esophagitis FL barium swallow Today R13.14 - Dysphagia, pharyngoesophageal phase Lipid Panel 4 Months E78.00 - Pure hypercholesterolemia, unspecified Comprehensive [place]. Panel Fast 4 Months E11.65 - Type 2 diabetes mellitus with hyperglycemia, Z79.4 - intermediate (current) use of insulin Hemoglobin A1c 4 Months E11.65 - Type 2 diabetes mellitus with hyperglycemia, Z79.4 - rn long term care (current) use of insulin Medications: New pen needle, diabetic (BD Ultra-Fine Alvina Pen Needle) TID USE 50 ea 3RF E11.65 - Type 2 diabetes mellitus with hyperglycemia, Z79.4 - intermediate (current) use of insulin sucralfate (Carafate) swish in mouth and swallow; use after food/drink 10 mL PO BID 30 days 600 mL 1RF R13.14 - Dysphagia, pharyngoesophageal phase Refilled clonazepam 0.5 mg PO Q6H 90 tabs 0RF atorvastatin 40 mg PO DAILY 90 tabs 3RF dapagliflozin propanediol (Farxiga) 10 mg PO DAILY 90 days 90 tabs 1RF E11.65 - Type 2 diabetes mellitus with hyperglycemia, Z79.4 - intermediate (current) use of insulin gabapentin 300 mg PO TID 90 days 270 caps 1RF M48.062 - Spinal stenosis, lumbar region with neurogenic claudication insulin aspart U-100 (Novolog FlexPen U-100 Insulin aspart) 30 units (0.3 mL) topical TID 30 mL 0RF insulin glargine (Lantus Solostar U-100 Insulin) 60 units (0.6 mL) subcut QPM 15 mL 1RF dulaglutide (Trulicity) 0.75 mg (0.5 mL) subcut QWEEK 90 days 6.5 mL 11RF E11.65 - Type 2 diabetes mellitus with hyperglycemia, Z79.4 - intermediate (current) use of insulin pantoprazole 40 mg PO DAILY 90 days 90 tabs 1RF K21.9 - Gastro-esophageal reflux disease without esophagitis metformin ER 500 mg PO DAILY 90 days 90 tabs 1RF E11.65 - Type 2 diabetes mellitus with hyperglycemia, Z79.4 - intermediate (current) use of insulin Patient Instructions: Goal: A1c to remain below 7.0, LDL to remain below 100 :Barriers adherence to physical activity and healthy eating habits Coding Level of Care Code Est Pt Level 4 (05308) Diagnoses Type 2 diabetes mellitus with hyperglycemia, with long-term current use of insulin E11.65; Z79.4 Diabetes mellitus complication status: with hyperglycemia Diabetes mellitus long-term insulin use: with assistant terminal manager use Pharyngoesophageal dysphagia R13.14 Dysphagia type: pharyngoesophageal phase MDD (major depressive disorder), recurrent episode, moderate F33.1
[2024-03-28 08:58] VITALS: BP 100/70; PULSE 73; O2SAT 97; BMI 26.3
== END 2024-03-28 09:31 | disposition home or self-care (01) ==
PROVIDERS: PCP Nurse Practitioner Family; Visit Provider Physician Assistant
DX: E11.65 Type 2 diabetes mellitus with hyperglycemia (principal); Z79.4 Long term (current) use of insulin; R13.14 Dysphagia, pharyngoesophageal phase; F33.1 Major depressive disorder, recurrent, moderate
CPT/HCPCS: 83036; 99214

== ENCOUNTER 2024-04-25 09:33 | Outpatient (AMB) | payer OTHER, MEDICAID, SELFPAY ==
--- NOTE | 2024-04-25 09:46 | MHC.OFFVIS ---
Intake Visit Reasons: OV-Back and neck pain Intake Note: Gabby 53 yr old female presents today for her follow up visit for her chronic neck and low back pain with bilateral sciatica. Patient is doing better, however she mentions that her pain sometimes goes down to her left hip and stops at her knee. No hx of injury. 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 Allergies No Known Allergies Allergy (Verified 04/25/24 09:51) Medication List - Last Reconciled 04/25/24 by Corrie Tran MD atorvastatin 40 mg PO DAILY blood sugar diagnostic (Accu-Chek Guide test strips) HACER PRUEBA DE AZUCAR EN LISBET HASTA TON VECES AL ALECIA ALEX INDICADO blood-glucose meter (OneTouch Verio Flex Start kit) As directed clonazepam 0.5 mg PO Q6H dapagliflozin propanediol (Farxiga) 10 mg PO DAILY 90 days dulaglutide (Trulicity) 0.75 mg (0.5 mL) subcut QWEEK 90 days gabapentin 300 mg PO TID 90 days insulin aspart U-100 (Novolog FlexPen U-100 Insulin aspart) 30 units (0.3 mL) topical TID insulin glargine (Lantus Solostar U-100 Insulin) 60 units (0.6 mL) subcut QPM metformin ER 500 mg PO DAILY 90 days metronidazole 500 mg PO Q12H pantoprazole 40 mg PO DAILY 90 days pen needle, diabetic (BD Ultra-Fine Alvina Pen Needle) TID USE sennosides-docusate sodium 8.6-50 mg 2 tab-caps (2 x 8.6-50 mg) PO BEDTIME 60 days NS sertraline 100 mg PO DAILY sucralfate (Carafate) 10 mL PO BID 30 days HPI Comments Details: Past medical history significant for type 2 diabetes mellitus, hyperlipidemia, peripheral neuropathy, generalized anxiety disorder, depression, GERD, retroverted uterus and fibroid. New to [place], came from [place]. History of chronic lower back and neck pain. Patient wants to prioritize discussion/treatment of lower back pain as this is her main concern. Lower back pain, midline then spreads to both legs. Random episodes. On occasion, it feels like legs would give out. After further questioning, pain does go down to her feet, especially when standing/walking. Reports numbness on her legs, but not on the feet. No bladder/bowel changes. Treatment done so far: Advil therapy - in [place], 2020 injection was recommended in [place] but patient did not have any because of poorly controlled DM at that time Pain is regular , bothers her lower back pain 1-2 times/week. 01/01. She says it is usually on left side/thigh and down to calf. She brought films of lumbar MRI 2018 and 2020 done at [place] - moderate spinal stenosis L4-5 with disc herniation? Report called this pseudobulge . Reports says stable from 2019 to 2020. [facility] Medical History Lumbar spinal stenosis Lumbar disc herniation Chronic back pain Hypercholesteremia Depression Generalized anxiety disorder Peripheral neuropathy Nephrolithiasis Type 2 diabetes mellitus GERD (gastroesophageal reflux disease) Surgical History Hx of lithotripsy History of esophagogastroduodenoscopy (EGD) Hx of colonoscopy History of eye surgery History of cholecystectomy Family History Mother Diabetes Hypertension Father Diabetes Hypertension Prostate cancer Social History Housing: House Alcohol intake: never Patient Tobacco Use Status: Never used Tobacco e-Cigarette/Vaping Use: Never Used Second Hand Smoke Exposure: No service: No Current occupational status: disabled Cognitive needs: No Hearing needs: No Vision needs: No Female Reproductive History Menstrual Age of Menarche: 14 Physical Exam Constitutional: Patient appears to be in no acute distress, well nourished and well developed. Patient was appropriately conversant and oriented. Good historian. MSK: No specific abnormalities found on inspection of the spine and all extremities. Tender lumbar paraspinals and SI joint. Lumbar ROM was full. Bilateral hip, knee and ankle ROM WNL. No ligamentous laxity or crepitance. No increased effusion. Straight-leg raising test negative. FABERE test negative. Strength is 5/5 in all muscle groups tested. No increased tone noted. Neurological: Neurologic examination of the upper and lower extremities was nonfocal with intact sensation, muscle stretch reflexes and without focal motor deficits . Metzger?s negative bilaterally. Babinski was down going bilaterally. Clonus was negative. Gait is non-antalgic without loss of balance. Results Reviewed Results Reviewed: She brought films of lumbar MRI 2018 and 2020 done at [place] - moderate spinal stenosis L4-5 with disc herniation? Report called this pseudobulge . Reports says stable from 2019 to 2020. I reviewed records from the following: PCP Transferred from [facility] [address] ? [facility] notes reviewed US 02/13: Retroverted uterus with small uterine fibroid. Assessment & Plan Assessment & Plan (1) Chronic back pain: Code(s): M54.9 - Dorsalgia, unspecified; G89.29 - Other chronic pain Category: Medical Qualifiers: Back pain laterality: bilateral Back pain location: low back pain Sciatica laterality: bilateral sciatica Sciatica presence: with sciatica Qualified Code(s): M54.42 - Lumbago with sciatica, left side; M54.41 - Lumbago with sciatica, right side; G89.29 - Other chronic pain (2) Lumbar disc herniation: Code(s): M51.26 - Other intervertebral disc displacement, lumbar region Category: Medical (3) Lumbar spinal stenosis: Code(s): M48.061 - Spinal stenosis, lumbar region without neurogenic claudication Category: Medical Qualifiers: Neurogenic claudication status: with neurogenic claudication Qualified Code(s): M48.062 - Spinal stenosis, lumbar region with neurogenic claudication Plan She is managing per patient. She defers any injections unless truly needed. She prefers to go to physical therapy. Referral placed. Assessment and plan discussed with patient, and patient was agreeable. All questions were answered thoroughly. Follow up 4 months. Corrie Tran MD, MARY Board Certified, [place] [employer] and Rehabilitation (ABPMR) Board Certified, [place] [employer] Electro[employer] (ABEM) Orders: Orders PT Evaluation and Treatment Today G89.29 - Other chronic pain, M48.062 - Spinal stenosis, lumbar region with neurogenic claudication, M51.26 - Other intervertebral disc displacement, lumbar region, M54.41 - Lumbago with sciatica, right side, M54.42 - Lumbago with sciatica, left side Coding Level of Care Code Est Pt Level 3 (01900) Diagnoses Chronic bilateral low back pain with bilateral sciatica M54.42; M54.41; G89.29 Back pain laterality: bilateral Back pain location: low back pain Sciatica laterality: bilateral sciatica Sciatica presence: with sciatica Lumbar disc herniation M51.26 Spinal stenosis of lumbar region with neurogenic claudication M48.062 Neurogenic claudication status: with neurogenic claudication
== END 2024-04-25 10:31 | disposition home or self-care (01) ==
PROVIDERS: PCP Nurse Practitioner Family; Visit Provider Physical Medicine & Rehabilitation
DX: M54.42 Lumbago with sciatica, left side (principal); M54.41 Lumbago with sciatica, right side; G89.29 Other chronic pain; M51.26 Other intervertebral disc displacement, lumbar region; M48.062 Spinal stenosis, lumbar region with neurogenic claudication
CPT/HCPCS: 99213

== ENCOUNTER → 2024-04-25 09:33 | Outpatient (BNVA) | payer OTHER, MEDICAID, SELFPAY | PROVIDERS: PCP Nurse Practitioner Family; Visit Provider Physical Medicine & Rehabilitation ==

== ENCOUNTER 2024-06-07 08:33 | Outpatient (REF) | payer OTHER, MEDICAID, SELFPAY ==
--- NOTE | ~2024-06-07 | FL_ITS ---
EXAMINATION: XR FLUOROSCOPY UPPER GI WITH AIR CLINICAL INFORMATION: Dysphagia COMPARISON: None TECHNIQUE: Fluoroscopic air contrast upper GI examination was performed utilizing standard techniques with thin and thick barium and effervescent granules. Numerous spot images were obtained. FINDINGS: Lateral cine images of the oropharynx and hypopharynx demonstrate normal swallow mechanism with normal epiglottic inversion and soft palate elevation. There is trace laryngeal penetration with thick barium. No tracheal penetration, glottic or subglottic aspiration identified. No nasopharyngeal reflux present. There is an anterior bridging osteophyte at C4-C5 that is causing mild posterior compression of the hypopharynx/upper esophagus (appearance highly suggestive of DISH). There was no significant cricopharyngeal achalasia. Dual and single contrast images of the esophagus demonstrate normal caliber, contour, and mucosal pattern. No evidence of stricture, mass, or ulcerations identified. Esophageal peristalsis was mildly disorganized. No evidence of hiatus hernia identified. No significant gastroesophageal reflux was seen during the course of the examination and on reflux views. Surgical clips are present in the upper quadrant. Dual contrast and single contrast images of the stomach demonstrated a normal contour. The areae gastrica have a thickened/prominent appearance, suggestive of gastritis. No masses or ulcerations are present. Contrast freely passed into the gastric antrum and duodenal bulb without delay. Single and air-contrast images of the duodenal bulb demonstrate no abnormality. The duodenal sweep has a normal appearance, course, and mucosal fold appearance. The imaged proximal jejunum has a normal fold pattern and caliber. FLUOROSCOPY TIME: 3 minutes 42 seconds Number of Spot Images: 8 Number of Cine: 15 DOSE AREA PRODUCT: 1929 uGy-m2 (microgray-meter squared) FL/FL barium swallow IMPRESSION: 1. Trace laryngeal penetration with thick barium. No subglottic aspiration. 2. Anterior bridging osteophyte at C4-5 is causing mild posterior compression of the hypopharynx/upper esophagus. Appearance is highly suggestive of DISH. 3. Mild esophageal dysmotility. 4. Status post cholecystectomy. 5. Mildly thickened appearance of the areae gastricae, suggestive of gastritis. This procedure was performed by Amadeo Garland PA-C, and supervised by Dr. Guillermo Electronically signed by: Chad Guillermo MD 06/07/2024 04:49 PM [facility]
== END 2024-06-07 08:34 | disposition home or self-care (01) ==
LOC: HO.XRAY 08:33
PROVIDERS: PCP Physician Assistant; Visit Provider Physician Assistant
DX: R13.14 Dysphagia, pharyngoesophageal phase (principal)
CPT/HCPCS: 74220

== ENCOUNTER → 2024-06-07 08:35 | Outpatient (BNV) | payer OTHER, MEDICAID, SELFPAY | PROVIDERS: PCP Physician Assistant; Visit Provider Physician Assistant Surgical | DX: R13.10 Dysphagia, unspecified (principal) | CPT/HCPCS: 74246 ==

== ENCOUNTER 2024-06-11 11:54 | Outpatient (RCR) | payer OTHER, MEDICAID, SELFPAY ==
--- NOTE | 2024-07-20 07:37 | MHC.PT.DC ---
[facility] [place] Office [place] Office [place] Office [address] Jonny Roblero [address] [phone] F: [phone] F: [phone] F: [phone] F: [phone] Physical Therapy Discharge Report Diagnosis: LOW BACK PAIN (KP) Date of Surgery: Date of Evaluation: 05/23/24 Date of Discharge: 07/20/24 Treatments to Date: 5 Cancellations to Date: 1 No Shows to Date: 0 Discharge Status: Discharge Summary: Pt had been making minimal gains in PT, cancelled last scheduled visit and elected to not schedule further visits at that time. As she has not been seen by our office in greater than 30 days we will zion her current chart and perform new evaluation if she requires further PT services. Electronically signed by: Erlinda Flannery PT DPT Please sign and return to therapist. Thank you for your referral.
== END 2024-07-20 07:37 | disposition home or self-care (01) ==
LOC: HO.PT 11:54
PROVIDERS: PCP Physician Assistant; Visit Provider Physical Medicine & Rehabilitation
DX: M54.41 Lumbago with sciatica, right side (principal); M54.42 Lumbago with sciatica, left side; G89.29 Other chronic pain
CPT/HCPCS: 97110; 97140; 97161; 97535

== ENCOUNTER 2024-06-11 14:11 | Outpatient (AMB) | payer OTHER, MEDICAID, SELFPAY ==
[2024-06-11 14:28] VITALS: BP 128/72; PULSE 58; O2SAT 97; BMI 27.0
--- NOTE | 2024-06-11 14:28 | A.OFFPC_ITS ---
Vital Signs 3 06/11/24 14:28 Height 5 ft 6 in Weight 167 lb BMI 27.0 BP 128/72 Blood Pressure Location Lt brachial Position Sitting Pulse 58 Pulse Source Pulse Oximeter Pulse Oximetry (%) 97 Oxygen Delivery Method Room Air Intake Visit Reasons: cyst on upper gluteus maximums Intake Note: The patient is here for a cyst on the upper gluteus luisana, present for the past two days. 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 Accompanied by: Self / Same As Patient Allergies No Known Allergies Allergy (Verified 06/11/24 14:40) Medication List - Last Reconciled 06/11/24 by Bill Disla PA-C atorvastatin 40 mg PO DAILY blood sugar diagnostic (Accu-Chek Guide test strips) HACER PRUEBA DE AZUCAR EN LISBET HASTA TON VECES AL ALECIA ALEX INDICADO blood-glucose meter (OneTouch Verio Flex Start kit) As directed clonazepam 0.5 mg PO Q6H dapagliflozin propanediol (Farxiga) 10 mg PO DAILY 90 days dulaglutide (Trulicity) 0.75 mg (0.5 mL) subcut QWEEK 90 days gabapentin 300 mg PO TID 90 days insulin aspart U-100 (Novolog FlexPen U-100 Insulin aspart) 30 units (0.3 mL) topical TID insulin glargine (Lantus Solostar U-100 Insulin) 60 units (0.6 mL) subcut QPM metformin ER 500 mg PO DAILY 90 days metronidazole 500 mg PO Q12H pantoprazole 40 mg PO DAILY 90 days pen needle, diabetic (BD Ultra-Fine Alvina Pen Needle) TID USE sennosides-docusate sodium 8.6-50 mg 2 tab-caps (2 x 8.6-50 mg) PO BEDTIME 60 days NS sertraline 100 mg PO DAILY sucralfate (Carafate) 10 mL PO BID 30 days Tobacco use date assessed: 03/28/24 Dental Screening Dental Screen Date: 11/24/23 HPI cyst on upper gluteus maximums 2 HPI0 Details Patient is a 53-year-old female here today for problem visit. Patient reports over the last 48 hours she has developed a painful cyst over her upper buttocks region. She has had this in the past and was treated with antibiotics while in [place]. She otherwise denies any fevers or chills. Dysphagia: Has recently underwent a barium swallow test which did show : --> 1. Trace laryngeal penetration with thick barium. No subglottic aspiration. 2. Anterior bridging osteophyte at C4-5 is causing mild posterior compression of the hypopharynx/upper esophagus. Appearance is highly suggestive of DISH. 3. Mild esophageal dysmotility. 4. Status post cholecystectomy. 5. Mildly thickened appearance of the a reae gastricae, suggestive of gastriti PFSH Medical History Lumbar spinal stenosis Lumbar disc herniation Chronic back pain Hypercholesteremia Depression Generalized anxiety disorder Peripheral neuropathy Nephrolithiasis Type 2 diabetes mellitus GERD (gastroesophageal reflux disease) Surgical History Hx of lithotripsy History of esophagogastroduodenoscopy (EGD) Hx of colonoscopy History of eye surgery History of cholecystectomy Family History Mother Diabetes Hypertension Father Diabetes Hypertension Prostate cancer Social History Housing: House Alcohol intake: never Patient Tobacco Use Status: Never used Tobacco e-Cigarette/Vaping Use: Never Used Second Hand Smoke Exposure: No service: No Current occupational status: disabled Cognitive needs: No Hearing needs: No Vision needs: No Female Reproductive History Menstrual Age of Menarche: 14 Questionnaire Thrive Questionnaire Date Thrive assessed: 11/24/23 JOSE MANUEL-7 AMB Questionnaire JOSE MANUEL-7 Date JOSE MANUEL - 7 assessed: 11/24/23 (Pt is seeing Dr. Alvarez through zoom. ) Source: Developed by Drs. Ricky Castillo, Mai Aguilar, Huey Castillo and colleagues, with an educational bryon from [employer]. Review of Systems Const Denies headache(s) Eyes Denies loss of vision ENT Denies vertigo, Denies dizziness, Denies headache(s) and Denies sore throat Card Denies chest pain, Denies leg edema and Denies lightheadedness Resp Denies cough, Denies hemoptysis and Denies wheezing GI Denies abdominal pain, Denies melena, Denies constipation, Denies diarrhea and Denies vomiting Denies urinary frequency, Denies dysuria and Denies urinary urgency Musc Denies arthralgias, Denies joint swelling, Denies numbness and Denies tingling Neuro Denies Abnormal speech present, Denies behavioral changes, Denies vertigo, Denies dizziness, Denies headache(s), Denies loss of vision, Denies memory loss, Denies numbness and Denies tingling Psych Denies anxiety, Denies behavioral changes, Denies depression, Denies memory loss and Denies panic attacks Ramiro/Lymph Denies easy bleeding and Denies easy bruising Aller/Immun Denies wheezing Physical exam (Primary Care) Vital Signs: Last Vital Signs Pulse 58 06/11/24 14:28 BP 128/72 06/11/24 14:28 Pulse Ox 97 06/11/24 14:28 Oxygen Delivery Method Room Air 06/11/24 14:28 BMI result Body Mass Index 27.0 Tobacco/Smoking Status: Tobacco use Status Tobacco use date assessed 03/28/24 06/11/24 14:31 Patient Tobacco Use Status Never used Tobacco 06/11/24 14:31 e-Cigarette/Vaping Use Never Used 06/11/24 14:31 Thrive Assessment: Date of Thrive Assessment Date Thrive assessed 11/24/23 06/11/24 14:31 Const General: healthy appearing, no acute distress, alert and awake Nutritional Appearance: well nourished Orientation/consciousness: oriented to person, oriented to place and oriented to time HENMT Ears: TM's normal bilaterally General nose exam: Normal nasal mucous membranes and turbinates present Eyes Conjunctivae: conjunctivae normal Sclerae: sclerae normal Pupils: Equal, round and reactive pupils present Neck Neck: Yes no lymphadenopathy and Yes no JVD Thyroid: Thyroid normal Carotids: no bruits Resp Effort & Inspection: normal respiratory effort and not tachypneic Auscultation: no crackles, no rales, no rhonchi and no wheezes Cardio Rate: regular rate Rhythm: regular rhythm Heart sounds: no murmurs and normal S1 and S2 GI Palpation (GI): Soft to palpation, nontender, no hepatomegaly and no splenomegaly Auscultation: normal bowel sounds Back/Spine/Pelvis Back/spine/pelvis image: 2 1. REPORTED BY PATIENT'S CYSTIC LIKE LESION IN THE AREA OUTLINED Skin General skin exam: no rashes or lesions noted and dry skin Neuro General: oriented to person, oriented to place and oriented to time Cranial nerves: Yes Equal, round and reactive pupils present Speech: No Abnormal speech present Gait exam (Neuro): Normal gait present Motor exam (neuro): no tremor noted Extrem Right upper extremity: full ROM Left upper extremity: full ROM Right lower extremity: full ROM; no edema Left lower extremity: full ROM; no edema Psych Mental Status: mental status grossly normal Speech and movement: Normal speech and movement present Affect: normal affect Attitude: cooperative Thought process: Normal thought process present Coding Level of Care Code Est Pt Level 3 (94374) Diagnoses Cyst near tailbone L05. Assessment & Plan Assessment & Plan (1) Cyst near tailbone: Code(s): L. - Pilonidal cyst without abscess Category: Medical Plan: Patient's signs symptoms are consistent with a subcutaneous cyst, will supply patient with antibiotic to see local infection clears. If symptoms persist will refer to general surgeon for surgical excision. Medications: New 2 doxycycline hyclate 100 mg PO BID 14 tabs 0RF 7 days L05.91 - Pilonidal cyst without abscess
== END 2024-06-11 15:16 | disposition home or self-care (01) ==
PROVIDERS: PCP Physician Assistant; Visit Provider Physician Assistant
DX: L05.91 Pilonidal cyst without abscess (principal)

== ENCOUNTER → 2024-06-11 14:11 | Outpatient (BNVA) | payer OTHER, MEDICAID, SELFPAY | PROVIDERS: PCP Physician Assistant; Visit Provider Physician Assistant ==

== ENCOUNTER 2024-06-18 10:46 | Outpatient (REF) | payer OTHER, MEDICAID, SELFPAY ==
--- NOTE | ~2024-06-18 | XR_ITS ---
EXAMINATION: XR ABDOMEN KUB CLINICAL INDICATION: Calculus of kidney. COMPARISON: 03/08/2024 renal ultrasound. TECHNIQUE: 2 AP views of the abdomen. FINDINGS: Nonobstructive bowel gas pattern. Moderate amount of stool in the colon. Visualization of the bilateral kidneys is limited due to overlying bowel. Degenerative changes in the lumbar spine. Surgical clips in the right upper quadrant. Moderate degenerative changes in bilateral hips. Possible 5 mm calculus overlying the interpolar region of the left kidney. Possible faint right interpolar 5 mm calculus. XR/XR KUB IMPRESSION: Possible 5 mm calculus overlying the interpolar region of the left kidney. Possible faint right interpolar 5 mm calculus. This study was presented today June 18, 2024 for interpretation. Stat results provided at this time as requested by referring provider. Electronically signed by: Dot Montes De Oca MD 06/18/2024 02:00 PM MILES AMBRIZ
== END 2024-06-18 10:47 | disposition home or self-care (01) ==
LOC: HO.XRAY 10:46
PROVIDERS: PCP Physician Assistant; Visit Provider Nurse Practitioner Family
DX: N20.0 Calculus of kidney (principal)
CPT/HCPCS: 74018

== ENCOUNTER 2024-07-05 16:20 | Outpatient (AMB) | payer OTHER, MEDICAID, SELFPAY ==
--- NOTE | 2024-07-05 16:20 | A.OFFVIS_ITS ---
Intake Visit Reasons: 3m/KUB/Litholink Intake Note: Patient presents today for tele visit follow up on: KUB results Imaging Completed: 06/18/24 Urology Medications: None Blood Thinner: none Hair Dryer Required: Yes Hair Dryer Services: Hair Dryer Present Hair Dryer Name: [id number] Accompanied by: Self / Same As Patient Allergies No Known Allergies Allergy (Verified 07/05/24 16:48) Medication List - Last Reconciled 07/05/24 by WARREN Hansen-DARIA atorvastatin 40 mg PO DAILY blood sugar diagnostic (Accu-Chek Guide test strips) HACER PRUEBA DE AZUCAR EN LISBET HASTA TON VECES AL ALECIA ALEX INDICADO blood-glucose meter (OneTouch Verio Flex Start kit) As directed clonazepam 0.5 mg PO Q6H dapagliflozin propanediol (Farxiga) 10 mg PO DAILY 90 days dulaglutide (Trulicity) 0.75 mg (0.5 mL) subcut QWEEK 90 days gabapentin 300 mg PO TID 90 days insulin aspart U-100 (Novolog FlexPen U-100 Insulin aspart) 30 units (0.3 mL) topical TID insulin glargine (Lantus Solostar U-100 Insulin) 60 units (0.6 mL) subcut QPM metformin ER 500 mg PO DAILY 90 days metronidazole 500 mg PO Q12H pantoprazole 40 mg PO DAILY 90 days pen needle, diabetic (BD Ultra-Fine Alvina Pen Needle) TID USE sennosides-docusate sodium 8.6-50 mg 2 tab-caps (2 x 8.6-50 mg) PO BEDTIME 60 days NS sertraline 100 mg PO DAILY sucralfate (Carafate) 10 mL PO BID 30 days HPI Comments Details: Sammy is a very pleasant 53 year-old Faroese-speaking female patient of Dr. Disla. She has a past medical history of diabetes, cholesterol, GERD, nephrolithiasis, depression and anxiety. She is being followed up on today via video telehealth for her nephrolithiasis. Of note, patient underwent left-sided ESWL with Dr. Lucas 02/08/24. In discussion with the patient today she reports to be doing and feeling well. Possible bilateral Recent KUB results reviewed with the patient today. Possible bilateral 5 mm nonobstructing calculi. She reports noting intermittent infrequent episodes of bilateral flank pain. Unable to review Litholink as patient is submitted urine collection recently in results remain pending. We discussed further intervention of nephrolithiasis to include surveillance monitoring verses lithotripsy. Risks and benefits of these interventions were discussed. She denies urinary urgency, urinary frequency, incontinence, nocturia, hematuria, dysuria, foul smelling urine, changes to urinary stream, fever, and or chills. She is happy with her current voiding parameters. She otherwise denies any other issues or concerns at this time. [facility] Medical History Lumbar spinal stenosis Lumbar disc herniation Chronic back pain Hypercholesteremia Depression Generalized anxiety disorder Peripheral neuropathy Nephrolithiasis Type 2 diabetes mellitus GERD (gastroesophageal reflux disease) Surgical History Hx of lithotripsy History of esophagogastroduodenoscopy (EGD) Hx of colonoscopy History of eye surgery History of cholecystectomy Family History Mother Diabetes Hypertension Father Diabetes Hypertension Prostate cancer Social History Housing: House Alcohol intake: never Patient Tobacco Use Status: Never used Tobacco e-Cigarette/Vaping Use: Never Used Second Hand Smoke Exposure: No service: No Current occupational status: disabled Cognitive needs: No Hearing needs: No Vision needs: No Female Reproductive History Menstrual Age of Menarche: 14 Review of Systems Const Reports no additional complaints Eyes Reports no additional complaints ENT Reports no additional complaints Card Reports as per HPI Resp Reports no additional complaints GI Reports as per HPI Reports as per HPI Musc Reports no additional complaints Neuro Reports no additional complaints Psych Reports as per HPI Endo Reports as per HPI Ramiro/Lymph Reports no additional complaints Aller/Immun Reports no additional complaints Physical Exam Const General: cooperative, healthy appearing, comfortable, no acute distress, well developed and alert Orientation/consciousness: patient oriented x3 Resp Effort & Inspection: normal respiratory effort and able to speak in complete sentences Neuro General: patient oriented x3 Psych Appearance: grossly normal and well kempt Speech and movement: Clear speech present Attitude: cooperative Thought content: Normal thought content present Insight: Fair insight present (Psych) Judgement: Fair judgement present (Psych) Telehealth Telehealth Telehealth Platform: [employer] Software Location of provider rendering services: practice address Location of patient: address on file Patient Identification confirmed using: Name, : Yes Telehealth method: video Patient verbally consented to treatment: Yes Patient verbally consented to billing insurance company: Yes Patient informed of any privacy concerns related to visit: Yes Minutes spent on Phone/Video with Pt.: 15 Results Reviewed Results Reviewed: Date of Service: 06/18/24 EXAMINATION: XR ABDOMEN KUB FINDINGS: Nonobstructive bowel gas pattern. Moderate amount of stool in the colon. Visualization of the bilateral kidneys is limited due to overlying bowel. Degenerative changes in the lumbar spine. Surgical clips in the right upper quadrant. Moderate degenerative changes in bilateral hips. Possible 5 mm calculus overlying the interpolar region of the left kidney. Possible faint right interpolar 5 mm calculus. IMPRESSION: Possible 5 mm calculus overlying the interpolar region of the left kidney. Possible faint right interpolar 5 mm calculus. This study was presented today June 18, 2024 for interpretation. Stat results provided at this time as requested by referring provider. Assessment & Plan Assessment & Plan (1) Flank pain: Code(s): R10.9 - Unspecified abdominal pain Category: Medical Plan Recent KUB results reviewed with the patient today; as noted above. We discussed further treatment options to include surveillance monitoring versus surgical intervention; risks and benefits of these interventions were discussed. All questions were answered. Discussed, educated, and stressed the importance of adequate hydration relation to nephrolithiasis as well as overall health and well-being. She denies any bothersome urinary issues. She reports be happy with current voiding parameters. Will await Litholink results for review Continue adding 1 oz of lemon juice to water daily. Follow-up in 1-2 months to review Litholink results; or sooner with any issues, concerns, and or questions. Patient Instructions: The patient had an opportunity to ask questions regarding the treatment plan. All questions were answered. Physical exam, labs, and imaging were discussed and reviewed in detail. As well as risks, benefits, and discussion of treatment choices. No major barriers to understanding were identified. The patient expressed understanding and agreement with the above treatment plan. The patient was made aware they should contact our office by phone for worsening of their current condition, the appearance of new symptoms, or with any questions or concerns. Compliance is encouraged with any medications and follow up testing that is ordered. It is a privilege to be allowed the opportunity to participate in? your urological care.? Again, if you have any questions or concerns If you have any questions or concerns please do not hesitate to contact me. The office is [phone]. This note is constructed using voice recognition software. While every effort has been made to ensure accuracy salvage machine operator errors may have been included. Yours sincerely, LUISA Hansen Coding Level of Care Code Tele Est Pt Level 3 (72168) Diagnoses Flank pain R10.9
== END 2024-07-05 17:00 | disposition home or self-care (01) ==
LOC: HO.HUSH 16:20
PROVIDERS: PCP Physician Assistant; Visit Provider Nurse Practitioner Family
DX: R10.9 Unspecified abdominal pain (principal)
CPT/HCPCS: 99213

== ENCOUNTER → 2024-07-05 16:20 | Outpatient (BNVA) | payer OTHER, MEDICAID, SELFPAY | PROVIDERS: PCP Physician Assistant; Visit Provider Nurse Practitioner Family ==

== ENCOUNTER 2024-09-25 12:59 | Outpatient (AMB) | payer OTHER, MEDICAID, SELFPAY ==
--- NOTE | 2024-09-25 13:01 | MHC.OFFVIS ---
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 Ux Manager Services: Ux Manager Present Information Interpreted: clinical only Feather Curling Machine Operator: Feather Curling Machine Operator Present Allergies No Known Allergies Allergy (Verified 09/25/24 13:09) Medication List - Last Reconciled 09/25/24 by Medina Jackson CNM atorvastatin 40 mg PO DAILY blood sugar diagnostic (Accu-Chek Guide test strips) HACER PRUEBA DE AZUCAR EN LISBET HASTA TON VECES AL ALECIA ALEX INDICADO blood-glucose meter (OneTouch Verio Flex Start kit) As directed clonazepam 0.5 mg PO Q6H dapagliflozin propanediol (Farxiga) 10 mg PO DAILY 90 days dulaglutide (Trulicity) 0.75 mg (0.5 mL) subcut QWEEK 90 days gabapentin 300 mg PO TID 90 days insulin aspart U-100 (Novolog FlexPen U-100 Insulin aspart) 30 units (0.3 mL) topical TID insulin glargine (Lantus Solostar U-100 Insulin) 60 units (0.6 mL) subcut QPM metformin ER 500 mg PO DAILY 90 days metronidazole 500 mg PO Q12H pantoprazole 40 mg PO DAILY 90 days pen needle, diabetic (BD Ultra-Fine Alvina Pen Needle) TID USE sennosides-docusate sodium 8.6-50 mg 2 tab-caps (2 x 8.6-50 mg) PO BEDTIME 60 days NS sertraline 100 mg PO DAILY sucralfate (Carafate) 10 mL PO BID 30 days Post menopausal: Yes HPI HPI 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 She is not having any problems what so ever she does sometimes have some external vaginal itching. She does have diabetes she says she is pretty well-controlled her sugars are usually in the 80s or 90s in the highest they ever are is 130. She says when her she gradually started eating less and better and taking care of herself and gradually started losing the weight. She said she probably has been at this weight now for about 2 years. She said her periods had gone away last year for full 7 months and then they came back around last February and they have been coming every month lasting 7 days her last period came August 25 for 7 days. She is not sexually active and has not been since her . She had never has had children she is curious about what if she were to get . She has a friend the she is getting to know through congregation and they have not been intimate and there was not even a discussion of it yet but she is just beginning to wonder because they both expressed that they would like children. [facility] Medical History Lumbar spinal stenosis Lumbar disc herniation Chronic back pain Hypercholesteremia Depression Generalized anxiety disorder Peripheral neuropathy Nephrolithiasis Type 2 diabetes mellitus GERD (gastroesophageal reflux disease) Surgical History Hx of lithotripsy History of esophagogastroduodenoscopy (EGD) Hx of colonoscopy History of eye surgery History of cholecystectomy Family History Mother Diabetes Hypertension Father Diabetes Hypertension Prostate cancer Social History Housing: House Alcohol intake: never Patient Tobacco Use Status: Never used Tobacco e-Cigarette/Vaping Use: Never Used Second Hand Smoke Exposure: No service: No Current occupational status: disabled Cognitive needs: No Hearing needs: No Vision needs: No Female Reproductive History Menstrual Age of Menarche: 14 control method: none Full term: 0 Date of last pap smear: 10/18/23 (negative) Physical Exam Vital Signs: Last Vital Signs BP 116/68 09/25/24 13:07 BMI result Body Mass Index 10.7 Const General: healthy appearing, comfortable, no acute distress, well developed and alert Nutritional Appearance: average body habitus Orientation/consciousness: patient oriented x3 Limitations: no limitations HEENT Head: Yes normocephalic Neck Neck: Yes normal visual inspection Chest Chest palpation & inspection: normal inspection of the chest Breast/axilla inspection: normal inspection of the breasts and normal inspection of the axillae Breast/axilla palpation: normal palpation of the breasts and normal palpation of the axillae Resp Effort & Inspection: normal respiratory effort GI Inspection: Yes normal to inspection, No Abdominal wall edema and No distended Palpation (GI): Soft to palpation and nontender Other: External vulva is slightly dry consistent with daniel menopausal atrophic changes, and evident of weight loss. vagina itself is pink and moist cervix nulliparous tightly closed no abnormal mucus whatsoever cervix long close thick mobile nontender uterus not enlarged midposition mobile nontender adnexa nontender not enlarged good muscle tone. General: Yes bladder normal to palpation External Female Exam: normal external appearance and normal appearance of the urethra Speculum Exam - Vagina: normal appearance of the vagina, normal palpation and normal vaginal discharge Speculum Exam - Cervix: normal appearance of the cervix, normal palpation and nontender Bimanual exam- vagina & uterus: normal bimanual exam, normal palpation, uterine size normal, bladder normal to palpation, consistency normal, normal palpation, uterine mobility normal, uterine shape normal, No Cervical tenderness present, non-tender and no cervical motion tenderness Bimanual Exam- Adnexa, other: normal adnexae, no masses, normal and No adnexal tenderness Neuro General: patient oriented x3 Results Reviewed Results Reviewed: Name: Gabby Ozuna Age/Sex: 52/F Attending: Medina Jackson CNM : 1970 Submitted by: Medina Jackson CNM Copies to: Hilda Acosta MR #: [id number] Status: DEP REF Collected: 09/23/23 Location: .LAB Received: 09/27/23 Interpretation Satisfactory for evaluation. Mild inflammation. Negative for intraepithelial lesion or malignancy. HPV mRNA E6/E7: NOT DETECTED This assay detects E6/E7 viral messenger RNA (mRNA) from 14 high-risk HPV types (16, 18, 31, 33, 35, 39, 45, 51, 52, 56, 58, 59, 66, 68) HPV testing performed by [facility], [place], [place]. See reference laboratory portion of the EMR for entire report. Clinical Information LMP: 10/10/23 Previous PAP test: Unknown date/findings Material Received ThinPrep-Cervical Copies To Hilda Acosta [address] [place] [address] [email or web address] [address] Wheeler [address] [place] [address] [phone] Electronically Signed By: CRISELDA Daniel ([facility]) 10/05/23 4079 The Pap Test is a screening procedure with the inherent possibility of both false negative and false positive results. Results should be interpreted in the context of historic and current clinical findings. Reliability of the Pap Test is enhanced by performing the test on a regular repetitive basis. Patient: Gabby Ozuna Age/Sex: 52/F MR#: [id number] Page 1 of 1 Patient: Gabby Faust MR#: [id number] : 1970 Acct:[id number] Age/Sex: 53 / F ADM Date: 12/27/23 Loc: [facility] Attending Dr: Bill Disla PA-C Ordering Physician: Bill Disla PA-C Results: 1Negative Date of Service: 12/27/23 Follow Up: 1 Year From Original Mammogram Procedure(s): MM tomosynthesis screening BI Accession Number(s): [id number] cc: Bill Disla PA-C~ EXAMINATION: MM SCREENING DIGITAL BREAST TOMOSYNTHESIS, BILATERAL CLINICAL INFORMATION: Screening. Asymptomatic. COMPARISON: Mammography: This study is compared with prior exams dating back to 2022. TECHNIQUE: Digital breast tomosynthesis is performed in both the craniocaudal and mediolateral oblique views along with computer-aided detection (CAD). Synthesized 2D images are generated from the tomosynthesis. FINDINGS: There are scattered areas of fibroglandular density (ACR BI-RADS breast composition Category b). There are no significant masses, abnormal calcifications, or other abnormalities. MM/MM tomosynthesis screening BI IMPRESSION: No mammographic evidence of malignancy. ASSESSMENT: BI-RADS BI-RADS 1 - Negative RECOMMENDATION: Routine annual mammography screening. 1 year F/U This examination should not preclude the clinical evaluation of a suspicious palpable abnormality. This patient's information was entered into a reminder system with a target due date for their next mammogram. Assessment & Plan Assessment & Plan (1) Well woman exam with routine gynecological exam: Code(s): Z01.419 - Encounter for gynecological examination (general) (routine) without abnormal findings Category: Medical (2) Breast cancer screening: Code(s): Z12.39 - Encounter for other screening for malignant neoplasm of breast Category: Medical Qualifiers: Breast cancer screening modality: mammogram Qualified Code(s): Z12.31 - Encounter for screening mammogram for malignant neoplasm of breast (3) Cervical cancer screening: Comment: 09/23/2023 Pap is negative with negative HPV. Code(s): Z12.4 - Encounter for screening for malignant neoplasm of cervix Category: Medical (4) Type 2 diabetes mellitus: Code(s): E11.9 - Type 2 diabetes mellitus without complications Category: Medical Qualifiers: Diabetes mellitus correction insulin use: with termite exterminator helper use Diabetes mellitus complication status: with hyperglycemia Qualified Code(s): E11.65 - Type 2 diabetes mellitus with hyperglycemia; Z79.4 - shelter (current) use of insulin (5) Perimenopause: Comment: Monthly menses returned after a 7 month gap see note. Code(s): N95.1 - Menopausal and female climacteric states Category: Medical Plan -----Discussed in this visit the following: healthy balanced diet, regular and consistent exercise, getting recommended health screens, doing the best she can for her particular health concerns, kegel exercises, pap smear screening and followup recommendations, mammography screening and SBE, normal changes in cycles in her life stage--- . Reviewed her health screening her negative Pap smear her other testing that she had done her negative mammogram. Reviewed her experience with the kidney stones last year she had procedures done on both sides and as it was not too bad. Reviewed her diabetes and how any elevation of blood sugars can contribute to some yeast infection and vaginal itching. Her described sugars are very good control. Discussed that it is fine to treat with some antifungal cream whenever she needs to and I will send a prescription to pharmacy.. (there was some confusion about pharmacy because she said [facility] was her local 1 but there is a different pharmacy that her long-term meds like insulin needles gets sent from) Discussed her daniel menopausal state, not menopausal state. Discussed that often menses will stop for a few months and can start up again and do not say that she has in full menopause until it has been a full year of no menses. It is unknown when it may stop again and if it will stay stopped or not. Also discussed that a at this age would be considered extremely high-risk both to herself the fetus and she should seek care quickly at [facility] should she become . Additionally in the setting of diabetes is also high-risk so the 2 things together would pose a very high-risk . That being said, she and her friend have not even come to that place in their relationship where they have embarked done intimacy but she is beginning to just think about it wanted as much information as she could. I did recommend that she take a multivitamin every day (with folic acid.) They are not normally paid for for adults Orders: Orders Bacterial Vaginosis Panel Today N89.8 - Other specified noninflammatory disorders of vagina CT NG by PCR Today N89.8 - Other specified noninflammatory disorders of vagina Medications: New miconazole nitrate 2% (Miconazole-7) Use when needed for vaginal itching/yeast infection. 1 appful vaginal BEDTIME 7 days 45 grams 2RF Coding Level of Care Code Est Pt Prev Care 40-64y(77620) Diagnoses Well woman exam with routine gynecological exam Z01.419 Encounter for screening mammogram for malignant neoplasm of breast Z12.31 Breast cancer screening modality: mammogram Cervical cancer screening Z12.4 Type 2 diabetes mellitus with hyperglycemia, with long-term current use of insulin E11.65; Z79.4 Diabetes mellitus termite exterminator helper insulin use: with correction use Diabetes mellitus complication status: with hyperglycemia Perimenopause N95.1
[2024-09-25 13:07] VITALS: BP 116/68; BMI 10.7
--- OUTSIDE RECORDS SUMMARY | 2024-09-25 16:08 | XMS_ITS | Clinical Summary ---
Author Organization [employer] Address [address] [address] [place] [address] Care Team Providers Care Student Development Coordinator Name Role Phone Unavailable Primary Care Provider Unavailabl e Allergies No known active allergies Medications insulin glargine (Lantus) 100 UNIT/ML injection Inject under the skin at bedtime. Active atorvastatin (Lipitor) 40 MG tablet Take 40 mg by mouth at bedtime. 2 Active metFORMIN XR (Glucophage-XR) 500 MG 24 hr tablet Take 500 mg by mouth with breakfast and with evening meal. 2 Active tamsulosin (Flomax) 0.4 MG 24 hr capsule TAKE 1 CAPSULE BY MOUTH AT BEDTIME FOR 14 DAYS Active sucralfate (Carafate) 1 GM/10ML suspension TAKE 10 ML BY MOUTH TWICE DAILY FOR 30 DAYS SWISH IN MOUTH AND SWALLOW 4 Active sertraline (Zoloft) 100 MG tablet TAKE 1 AND 1/2 TABLETS BY MOUTH DAILY 4 Active NovoLOG FLEXPEN 100 UNIT/ML pen 4 Active Trulicity 0.75 MG/0.5ML solution pen-injector 4 Active gabapentin (Neurontin) 300 MG capsule TOME 1 CAPSULA 3 VECES AL ALECIA 2 Active gemfibrozil (Lopid) 600 MG tablet TAKE 1 TABLET(600 MG) BY MOUTH DAILY 3 Active Precision QID Test test strip by Other route Once per day. 2 Active hydrocortisone (Anusol-HC) 2.5 % rectal cream 4 Active Accu-Chek Softclix Lancets lancets 4 Active oxyCODONE (Roxicodone) 5 MG immediate release tablet TAKE 1 TABLET BY MOUTH EVERY 8 HOURS FOR 3 DAYS NEEDED FOR PAIN 4 Active pantoprazole (ProtoNix) 40 MG EC tablet Take 40 mg by mouth Once per day. 2 Active Stimulant Laxative 8.6-50 MG tablet TAKE 2 TABLETS BY MOUTH AT BEDTIME EVERY OTHER DAY 4 Active Active Problems Problem Noted Date Diagnosed Date Intramural uterine fibroid 02/05/2022 Overweight (BMI 25.0-29.9) 11/14/2021 Thyroid nodule 10/23/2021 Overview (11/04/2023): U/S (06/2020): Right lobe subcentimeter nodule and bilateral colloid cysts. Clinical correlation and follow up to document stability recommended. Needs repeat ultrasound. DDD (degenerative disc disease), lumbar 10/22/19 Gastroesophageal reflux disease 10/21/2021 Nephrolithiasis 10/21/2021 Mixed hyperlipidemia 10/20/2021 Overview (11/04/2023): Previous LDL at goal, continue Lipitor and gemfibrozil. Primary hypertension 10/20/2021 Type 2 diabetes mellitus wit h diabetic polyneuropathy, with long-term current use of insulin 10/20/2021 Overview (11/04/2023): Well-controlled. A1c<7 in clinic today. Continue current medications: Trreuben, farxiga, metformin 1000mg BID, Lantus 30u qhs and lispro 10-12u TID. Social History Tobacco Use Types Packs/Day Years Used Date Smoking Tobacco: Never Smokeless Tobacco: Current Tobacco Cessation:Ready to Q uit: Not Asked; Counseling Given: Not Answered Alcohol Use Standard Drinks/Week Comments Defer 0 (1 standard drink = 0.6 oz pur e alcohol) Comments Unknown Sex and Gender Information Value Date Recorded Sex Assigned at Female 08/11/2023 11:20 AM EST Legal Sex Female 1:49 PM EDT Gender Identity Female 08/11/2023 11:20 AM EST Sexual Orientation Straight 08/11/2023 11 :20 AM EST Last Filed Vital Signs Vital Sign Reading Time Taken Comments Blood Pressure 134/74 05/04/2024 1:09 PM EDT Pulse - - Temperature - - Respiratory Rate - - Oxygen Saturation - - Inhaled Oxygen Concentration - - Weight - - Height - - Body Mass Index - - Plan of Treatment Upcoming Encounters Date Type Department Care Team (Late st Contact Info) Description 11/07/2024 1:00 PM EDT Office Visit [facility] [address] [place] [address] Holly Zamorano Health Maintenance Due Date Last Done Comments CT Colonography 1972 Colonoscopy 1972 Colorectal Cancer Screening 1972 Depression Screening 1972 Diabetes: Hemoglobin A1C 1972 FIT DNA/Cologuard 1972 FIT 1972 FOBT 1972 HIV Screening 1972 Lipid Panel 1972 SDOH Screening 1972 Sigmoidoscopy 1972 Diabetes: Foot Exam 1982 Eye Exam 1982 Alcohol/Substance Use Screening 1984 Family Planning (PISQ) 09/28/1987 Hepatitis C Screening 1990 DTaP/Tdap/Td Vaccines (1 - Tdap) 09/28/1991 Hepatitis B Vaccines (1 of 3 - 19+ 3-dose series) 09/28/1991 Pneumococcal Vaccine: 50+ Years (1 of 2 - PCV) 09/28/1991 Pap Smear 1993 Cervical Cancer Screening 2002 HPV/Cotest 2002 Diabetes: Urine Protein Screening 11/17/2022 11/17/2021 Mammogram 03/05/2024 03/05/2022 COVID-19 Vaccine ( season) 2024 03/08/2022, 01/28/2021, 12/31/2020 Dental X-Ray: Bitewings 08/17/2024 08/16/2023 Dental Oral Exam 11/03/2024 05/04/2024, 08/16/2023 Dental Prophylaxis 11/03/2024 05/04/2024, 08/16/2023 Tobacco Screening 05/04/2025 05/04/2024 Dental X-Ray: Full Mouth 08/17/2026 08/16/2023 RSV Patients and Patients Aged 60 years or older (1 - 1-dose 75+ series) 09/28/2047 Zoster Vaccines Completed 12/25/2022, 10/28/2022 Influenza Vaccine Completed 04/26/2024, , 05/28/2022, Additional history exists HIB Vaccines Aged Out No longer eligi ble based on patient's age to complete this topic HPV Vaccines Aged Out No longer eligi ble based on patient's age to complete this topic Hepatitis A Vaccines Aged Out No long er eligible based on patient's age to complete this topic IPV Vaccines Aged Out No longer eligi ble based on patient's age to complete this topic Meningococcal Vaccine Aged Out No monae ceci eligible based on patient's age to complete this topic RSV under 20 months Aged Out No longe r eligible based on patient's age to complete this topic Rotavirus Vaccines Aged Out No longer eligible based on patient's age to complete this topic Procedures Procedure Name Priority Date/Time Associated Diagnosis Comments PROPHYLAXIS - ADULT Routine 05/04/2024 1 :00 PM EDT Dental plaque Dental calculus PERIODIC ORAL EVALUATION - ESTABLISHED PATIENT Routine 05/04/2024 1:00 PM EDT Dental plaque Dental calculus Encounter for dental examination INTRAORAL - COMPLETE SERIES OF RADIOGRAPHIC IMAGES Routine 08/16/2023 1:00 PM EST Dental caries Closed fracture of tooth, initial encounter Supraeruption of teeth Teeth missing from Last 3 Months or Most Recently Relevant to Health Maintenance [facility] - [employer] [facility]
== END 2024-09-25 13:56 | disposition home or self-care (01) ==
PROVIDERS: PCP Nurse Practitioner Family; Visit Provider Advanced Practice Midwife
DX: Z01.419 Encounter for gynecological examination (general) (routine) without abnormal findings (principal); N95.1 Menopausal and female climacteric states
CPT/HCPCS: 99396; 99459

== ENCOUNTER 2024-09-25 12:59 | Outpatient (REF) | payer OTHER, MEDICAID, SELFPAY ==
--- OUTSIDE RECORDS SUMMARY | 2024-09-25 17:45 | XMS_ITS | Clinical Summary ---
Author Organization [employer] Address [address] [facility] [address] [place] [address] Care Team Providers Care Practice Business Asst Name Role Phone Unavailable Primary Care Provider [...] Description 11/07/2024 1:00 PM EDT Office Visit [facility] [address] [place] [address] Holly Zamorano Health Maintenance Due Date Last [...] Most Recently Relevant to Health Maintenance [facility] [facility]
[2024-09-26 14:49] LABS: Bacterial Vaginosis PCR NEGATIVE (Negative); Candida Group PCR NOT DETECTED (Not Detect); Candida glab krusei PCR NOT DETECTED (Not Detect); Trichomonas vaginalis PCR NOT DETECTED (Not Detect)
[2024-09-26 18:04] LABS: CT PCR NOT DETECTED (Not Detect.); NG PCR NOT DETECTED (Not Detect.)
== END 2024-09-25 13:00 | disposition home or self-care (01) ==
LOC: HO.LAB 12:59
PROVIDERS: PCP Nurse Practitioner Family; Visit Provider Advanced Practice Midwife
DX: Z01.419 Encounter for gynecological examination (general) (routine) without abnormal findings (principal); N89.8 Other specified noninflammatory disorders of vagina; Z12.13 Encounter for screening for malignant neoplasm of small intestine; E11.65 Type 2 diabetes mellitus with hyperglycemia; N95.1 Menopausal and female climacteric states
CPT/HCPCS: 81515; 87491; 87591

== ENCOUNTER 2024-09-27 08:58 | Outpatient (AMB) | payer OTHER, MEDICAID, SELFPAY ==
--- NOTE | 2024-09-27 08:58 | A.OFFVIS_ITS ---
Vital Signs 09/27/24 09:06 Height 6 ft 6 in Weight 167 lb BMI 19.3 Intake Visit Reasons: Tel-Back and neck pain Intake Note: Gabby 54 yr old female presents today for a telehealth visit. Tender Labor Required: Yes Tender Labor Services: Tender Labor Present Allergies No Known Allergies Allergy (Verified 09/25/24 13:09) HPI Comments Details: Past medical history significant for type 2 diabetes mellitus, hyperlipidemia, peripheral neuropathy, generalized anxiety disorder, depression, GERD, retroverted uterus and fibroid. New to [place], came from [place]. History of chronic lower back and neck pain. Patient wants to prioritize discussion/treatment of lower back pain as this is her main concern. Lower back pain, midline then spreads to both legs. Random episodes. On occasion, it feels like legs would give out. After further questioning, pain does go down to her feet, especially when standing/walking. Reports numbness on her legs, but not on the feet. No bladder/bowel changes. Treatment done so far: Advil therapy - in [place], 2020 injection was recommended in [place] but patient did not have any because of poorly controlled DM at that time Last saw patient 04/25/2024. Patient continues to have lower back pain, almost constant nowadays, radiating to both legs with numbness and tingling. Poor sleep at night as not able to find the right position to relief pain. She has done physical therapy from April to June 2024, 5 sessions all in all, without any improvements. Physical therapy discharge summary reviewed. Last MRI was in [place], as below. [facility] Medical History Lumbar spinal stenosis Lumbar disc herniation Chronic back pain Hypercholesteremia Depression Generalized anxiety disorder Peripheral neuropathy Nephrolithiasis Type 2 diabetes mellitus GERD (gastroesophageal reflux disease) Surgical History Hx of lithotripsy History of esophagogastroduodenoscopy (EGD) Hx of colonoscopy History of eye surgery History of cholecystectomy Family History Mother Diabetes Hypertension Father Diabetes Hypertension Prostate cancer Social History Housing: House Alcohol intake: never Patient Tobacco Use Status: Never used Tobacco e-Cigarette/Vaping Use: Never Used Second Hand Smoke Exposure: No service: No Current occupational status: disabled Cognitive needs: No Hearing needs: No Vision needs: No Female Reproductive History Menstrual Age of Menarche: 14 Telehealth Telehealth Telehealth Platform: Telephone Location of provider rendering services: practice address Location of patient: address on file Patient Identification confirmed using: Name, : Yes Telehealth method: voice only Patient verbally consented to treatment: Yes Patient verbally consented to billing insurance company: Yes Patient informed of any privacy concerns related to visit: Yes Minutes spent on Phone/Video with Pt.: 10 Results Reviewed Results Reviewed: Last visit, she brought films of lumbar MRI 2018 and 2020 done at [place] - moderate spinal stenosis L4-5 with disc herniation? Report called this pseudobulge . Reports says stable from 2018 to 2020. I reviewed records from the following: PCP 02/13: Retroverted uterus with small uterine fibroid. Assessment & Plan Assessment & Plan (1) Chronic back pain: Code(s): M54.9 - Dorsalgia, unspecified; G89.29 - Other chronic pain Category: Medical Qualifiers: Back pain laterality: bilateral Back pain location: low back pain Sciatica laterality: bilateral sciatica Sciatica presence: with sciatica Qualified Code(s): M54.42 - Lumbago with sciatica, left side; M54.41 - Lumbago with sciatica, right side; G89.29 - Other chronic pain (2) Lumbar disc herniation: Code(s): M51.26 - Other intervertebral disc displacement, lumbar region Category: Medical (3) Lumbar spinal stenosis: Code(s): M48.061 - Spinal stenosis, lumbar region without neurogenic claudication Category: Medical Qualifiers: Neurogenic claudication status: with neurogenic claudication Qualified Code(s): M48.062 - Spinal stenosis, lumbar region with neurogenic claudication Plan History of lumbar spinal stenosis, with worsening lower back pain radiating to both legs. Patient had undergone adequate conservative management including PT without improvement of condition. It would be reasonable to obtain further im aging such as MRI. An MRI would help rule out any serious condition, guide treatment and assess prognosis for recovery. Specifically ruling out worsening of spinal stenosis or cord impingement. Assessment and plan discussed with patient, and patient was agreeable. All questions were answered thoroughly. Follow up after MRI. Total of 10 minutes on the phone, total of 30 minutes spent today including chart review, results review, history taking, physical examination, discussion of assessment and plan, and coordination of care. Corrie Tran MD, MARY Board Certified, [place] [employer] Physical Medicine and Rehabilitation (ABPMR) Board Certified, [place] Board of Electrodiagnostic Medicine (ABEM) Orders: Orders MR lumbar spine wo con Today G89.29 - Other chronic pain, M48.062 - Spinal stenosis, lumbar region with neurogenic claudication, M51.26 - Other intervertebral disc displacement, lumbar region, M54.41 - Lumbago with sciatica, right side, M54.42 - Lumbago with sciatica, left side Coding Level of Care Code Tele Est Pt Level 4 (43315) Diagnoses Chronic bilateral low back pain with bilateral sciatica M54.42; M54.41; G89.29 Back pain laterality: bilateral Back pain location: low back pain Sciatica laterality: bilateral sciatica Sciatica presence: with sciatica Lumbar disc herniation M51.26 Spinal stenosis of lumbar region with neurogenic claudication M48.062 Neurogenic claudication status: with neurogenic claudication
[2024-09-27 09:06] VITALS: BMI 19.3
--- OUTSIDE RECORDS SUMMARY | 2024-09-27 09:49 | XMS_ITS | Clinical Summary ---
Author Organization [employer] Address [address] [facility] [address] [place] [address] Care Team Providers Care Clinical Law Professor Name Role Phone Unavailable Primary Care Provider [...] Description 11/07/2024 1:00 PM EDT Office Visit [facility]ULT [facility] [address] [place] [address] Holly Zamorano Health Maintenance Due Date Last [...] Most Recently Relevant to Health Maintenance [facility] - [employer] DENTAL
== END 2024-09-27 09:07 | disposition home or self-care (01) ==
LOC: HO.HOS 08:58
PROVIDERS: PCP Nurse Practitioner Family; Visit Provider Physical Medicine & Rehabilitation
DX: M54.42 Lumbago with sciatica, left side (principal); M54.41 Lumbago with sciatica, right side; G89.29 Other chronic pain; M51.26 Other intervertebral disc displacement, lumbar region; M48.062 Spinal stenosis, lumbar region with neurogenic claudication
CPT/HCPCS: 98012

== ENCOUNTER → 2024-09-27 08:58 | Outpatient (BNVA) | payer OTHER, MEDICAID, SELFPAY | PROVIDERS: PCP Nurse Practitioner Family; Visit Provider Physical Medicine & Rehabilitation ==

== ENCOUNTER 2024-10-06 17:49 | Outpatient (REF) | payer OTHER, MEDICAID, SELFPAY ==
--- NOTE | ~2024-10-06 | MR_ITS ---
CLINICAL HISTORY: M48.062 - Spinal stenosis, lumbar region with neurogenic claudication MR lumbar spine without gadolinium Comparison: None Findings: No scoliosis or spondylolisthesis. T12-L1 and L1-L2 discs are unremarkable. . Large anterior osteophytic ridges are noted from the lower thoracic spine through L4-5. At L5-S1 there is a large left lateral and subarticular annular tear with a Left subarticular to foraminal disc extrusion. There is compression of the left S1 exiting nerve root. There is severe facet arthropathy at the L5-S1 level. Cauda equina and conus medullaris within normal limits. At L4-L5 there is a larger diffuse annular bulge as well as facet hypertrophy and ligamentum flavum hypertrophy resulting in severe central spinal stenosis. There is bilateral neural foraminal narrowing rybf-rcjusgk-pzgn-right. Paraspinous musculature intact. At L4-L5. There are mild annular bulges at L2-3 and L3-4 encroaching upon the bilateral neural foramina. IMPRESSION: 1. There are mild annular bulges at L2-3 and L3-4 encroaching upon the bilateral neural foramina. 2. At L4-L5 there is a larger diffuse annular bulge as well as facet hypertrophy and ligamentum flavum hypertrophy resulting in severe central spinal stenosis. There is bilateral neural foraminal narrowing lahu-ccnzhvf-fjut-right. 3. At L5-S1 there is a large left lateral and subarticular annular tear with a Left subarticular to foraminal disc extrusion. There is compression of the left S1 exiting nerve root. There is severe facet arthropathy at the L5-S1 level. This document has been electronically signed by: Harry Elder MD on 10/09/2024 07:04:44
--- OUTSIDE RECORDS SUMMARY | 2024-10-06 17:51 | XMS_ITS | Clinical Summary ---
Author Organization [employer] Address [address] [facility] [address] [place] [address] Care Team Providers Care Command Center Officer Name Role Phone Unavailable Primary Care Provider [...] Description 11/07/2024 1:00 PM EDT Office Visit [facility] ADULT DENTAL [address] [place] [address] Holly Zamorano Health Maintenance Due Date Last [...] Most Recently Relevant to Health Maintenance [facility] - [employer] DENTAL
== END 2024-10-06 17:50 | disposition home or self-care (01) ==
LOC: HO.MRI 17:49
PROVIDERS: PCP Nurse Practitioner Family; Visit Provider Physical Medicine & Rehabilitation
DX: M48.062 Spinal stenosis, lumbar region with neurogenic claudication (principal); M51.26 Other intervertebral disc displacement, lumbar region; M54.42 Lumbago with sciatica, left side; M54.41 Lumbago with sciatica, right side; G89.29 Other chronic pain
CPT/HCPCS: 72148

== ENCOUNTER → 2024-10-06 17:58 | Outpatient (BNV) | payer OTHER, MEDICAID, SELFPAY | PROVIDERS: PCP Nurse Practitioner Family; Visit Provider Radiology Diagnostic Radiology | DX: M48.062 Spinal stenosis, lumbar region with neurogenic claudication (principal) | CPT/HCPCS: 72148 ==

== ENCOUNTER 2024-10-09 09:05 | Outpatient (REF) | payer OTHER, MEDICAID, SELFPAY ==
[2024-10-09 10:24] LABS: Hematocrit 40.4 % (37.0-47.0); Hemoglobin 12.9 g/dl (12.0-16.0); Mean Corpuscular HGB Conc 31.9 g/dl (31.0-35.0); Mean Corpuscular Hemoglobin 30.8 pg (27.0-33.0); Mean Corpuscular Volume 96.4 fL (80.0-98.0); Mean Platelet Volume 11.6 fL (9.4-12.3); Platelet Count 236 X10*3/uL (160-400); Red Blood Count 4.19 X10*6/uL (4.20-5.50); Red Cell Distribution Width 13.7 % (11.0-16.0); White Blood Count 6.9 X10*3/uL (4.8-10.8)
[2024-10-09 10:32] LABS: Estimated Average Glucose 137 mg/dL; Hemoglobin A1c % 6.4 % (<6.0); Total Hemoglobin (HGBA1C) 3482.2609 umol/L
[2024-10-09 11:05] LABS: Alanine Aminotransferase 24 U/L (0-31); Albumin Level 3.7 g/dL (3.5-5.0); Alkaline Phosphatase 77 U/L (39-117); Anion Gap 10 (12-20); Aspartate Amino Transferase 24 U/L (5-31); Bilirubin Total 0.3 mg/dL (0.0-1.0); Blood Urea Nitrogen 8 mg/dL (9-16); Calcium 8.9 mg/dL (8.4-10.2); Carbon Dioxide 26 mmol/L (22-29); Chloride 110 mmol/L (96-108); Cholesterol 153 mg/dL (<200); Estimated Glomerular Filt Rate > 60; Glucose Fasting 95 mg/dL (60-99); HDL Cholesterol 68 mg/dL (>40); LDL Cholesterol Calculated 64 mg/dL (<100); Potassium 3.9 mmol/L (3.3-5.1); Sodium 142 mmol/L (135-145); Total Protein 6.9 g/dL (6.5-8.0); Triglycerides 105 mg/dL (<150)
== END 2024-10-09 09:06 | disposition home or self-care (01) ==
LOC: HO.LAB 09:05
PROVIDERS: PCP Physician Assistant; Visit Provider Physician Assistant
DX: K21.9 Gastro-esophageal reflux disease without esophagitis (principal); E11.65 Type 2 diabetes mellitus with hyperglycemia; Z79.4 Long term (current) use of insulin; E78.00 Pure hypercholesterolemia, unspecified
CPT/HCPCS: 36415; 80053; 80061; 83036; 85027

== ENCOUNTER 2024-10-12 08:34 | Outpatient (AMB) | payer OTHER, MEDICAID, SELFPAY ==
--- NOTE | 2024-10-12 08:45 | MHC.OFFVIS ---
Vital Signs 10/12/24 08:46 Height 6 ft 6 in Weight 167 lb BMI 19.3 Intake Visit Reasons: O/V MRI review lumbar Intake Note: Gabby 54 yr old female presents today to have her lumbar spine MRI review. States her pain has not improved. University Administrator Required: Yes University Administrator Name: Sonia HOLGUINA/LM Allergies No Known Allergies Allergy (Verified 10/12/24 08:52) Medication List - Last Reconciled 10/12/24 by Corrie Tran MD atorvastatin 40 mg PO DAILY blood sugar diagnostic (Accu-Chek Guide test strips) HACER PRUEBA DE AZUCAR EN LISBET HASTA TON VECES AL ALECIA ALEX INDICADO blood-glucose meter (OneTouch Verio Flex Start kit) As directed clonazepam 0.5 mg PO Q6H dapagliflozin propanediol (Farxiga) 10 mg PO DAILY 90 days dulaglutide (Trulicity) 0.75 mg (0.5 mL) subcut QWEEK 90 days gabapentin 300 mg PO TID 90 days insulin aspart U-100 (Novolog FlexPen U-100 Insulin aspart) 30 units (0.3 mL) topical TID insulin glargine (Lantus Solostar U-100 Insulin) 60 units (0.6 mL) subcut QPM metformin ER 500 mg PO DAILY 90 days metronidazole 500 mg PO Q12H miconazole nitrate 2% (Miconazole-7) 1 appful vaginal BEDTIME 7 days pantoprazole 40 mg PO DAILY 90 days pen needle, diabetic (BD Ultra-Fine Alvina Pen Needle) TID USE sennosides-docusate sodium 8.6-50 mg 2 tab-caps (2 x 8.6-50 mg) PO BEDTIME 60 days NS sertraline 100 mg PO DAILY sucralfate (Carafate) 10 mL PO BID 30 days HPI Comments Details: Past medical history significant for type 2 diabetes mellitus, hyperlipidemia, peripheral neuropathy, generalized anxiety disorder, depression, GERD, retroverted uterus and fibroid. New to [place], came from [place]. History of chronic lower back and neck pain. Patient wants to prioritize discussion/treatment of lower back pain as this is her main concern. Lower back pain, midline then spreads to both legs. Random episodes. On occasion, it feels like legs would give out. After further questioning, pain does go down to her feet, especially when standing/walking. Reports numbness on her legs, but not on the feet. No bladder/bowel changes. Patient continues to have lower back pain, almost constant nowadays, radiating to both legs with numbness and tingling. Poor sleep at night as not able to find the right position to relief pain. She has done physical therapy from April to June 2024, 5 sessions all in all, without any improvements. Physical therapy discharge summary reviewed. [facility] Medical History Lumbar spinal stenosis Lumbar disc herniation Chronic back pain Hypercholesteremia Depression Generalized anxiety disorder Peripheral neuropathy Nephrolithiasis Type 2 diabetes mellitus GERD (gastroesophageal reflux disease) Surgical History Hx of lithotripsy History of esophagogastroduodenoscopy (EGD) Hx of colonoscopy History of eye surgery History of cholecystectomy Family History Mother Diabetes Hypertension Father Diabetes Hypertension Prostate cancer Social History Housing: House Alcohol intake: never Patient Tobacco Use Status: Never used Tobacco e-Cigarette/Vaping Use: Never Used Second Hand Smoke Exposure: No service: No Current occupational status: disabled Cognitive needs: No Hearing needs: No Vision needs: No Female Reproductive History Menstrual Age of Menarche: 14 Physical Exam Vital Signs: BMI result Body Mass Index 19.3 Constitutional: Patient appears to be in no acute distress, well nourished and well developed. Patient was appropriately conversant and oriented. Good historian. MSK: No specific abnormalities found on inspection of the spine and all extremities. Tender lumbar paraspinals and SI joint. Lumbar ROM was full. Bilateral hip, knee and ankle ROM WNL. No ligamentous laxity or crepitance. No increased effusion. Straight-leg raising test negative. FABERE test negative. Strength is 5/5 in all muscle groups tested. No increased tone noted. Neurological: Neurologic examination of the upper and lower extremities was nonfocal with intact sensation, muscle stretch reflexes and without focal motor deficits . Metzger?s negative bilaterally. Babinski was down going bilaterally. Clonus was negative. Gait is non-antalgic without loss of balance. Results Reviewed Results Reviewed: Ordering Physician: Corrie Vega Date of Service: 10/06/24 Procedure(s): MR lumbar spine wo con Accession Number(s): [id number] cc: Hilda Acosta; Corrie Vega~ CLINICAL HISTORY: M48.062 - Spinal stenosis, lumbar region with neurogenic claudication MR lumbar spine without gadolinium Comparison: None Findings: No scoliosis or spondylolisthesis. T12-L1 and L1-L2 discs are unremarkable. . Large anterior osteophytic ridges are noted from the lower thoracic spine through L4-5. At L5-S1 there is a large left lateral and subarticular annular tear with a Left subarticular to foraminal disc extrusion. There is compression of the left S1 exiting nerve root. There is severe facet arthropathy at the L5-S1 level. Cauda equina and conus medullaris within normal limits. At L4-L5 there is a larger diffuse annular bulge as well as facet hypertrophy and ligamentum flavum hypertrophy resulting in severe central spinal stenosis. There is bilateral neural foraminal narrowing usan-iqxdcgt-zcok-right. Paraspinous musculature intact. At L4-L5. There are mild annular bulges at L2-3 and L3-4 encroaching upon the bilateral neural foramina. IMPRESSION: 1. There are mild annular bulges at L2-3 and L3-4 encroaching upon the bilateral neural foramina. 2. At L4-L5 there is a larger diffuse annular bulge as well as facet hypertrophy and ligamentum flavum hypertrophy resulting in severe central spinal stenosis. There is bilateral neural foraminal narrowing qjcd-ljdqxuf-yozj-right. 3. At L5-S1 there is a large left lateral and subarticular annular tear with a Left subarticular to foraminal disc extrusion. There is compression of the left S1 exiting nerve root. There is severe facet arthropathy at the L5-S1 level. This document has been electronically signed by: Harry Elder MD on 10/09/2024 07:04:44 Assessment & Plan Assessment & Plan (1) Chronic back pain: Code(s): M54.9 - Dorsalgia, unspecified; G89.29 - Other chronic pain Category: Medical Qualifiers: Back pain laterality: bilateral Back pain location: low back pain Sciatica laterality: bilateral sciatica Sciatica presence: with sciatica Qualified Code(s): M54.42 - Lumbago with sciatica, left side; M54.41 - Lumbago with sciatica, right side; G89.29 - Other chronic pain (2) Lumbar spinal stenosis: Code(s): M48.061 - Spinal stenosis, lumbar region without neurogenic claudication Category: Medical Qualifiers: Neurogenic claudication status: with neurogenic claudication Qualified Code(s): M48.062 - Spinal stenosis, lumbar region with neurogenic claudication Plan Patient has been suffering from pain and claudication, which we have confirmed with an MRI to be most likely coming from spondylosis and spinal stenosis (L4-5). She has undergone conservative management without improvement, including PT. I would refer her to neurospine to see her surgical options. If deemed not surgical at this time, then we could consider return to further PT and/or referral for injections. Assessment and plan discussed with patient, and patient was agreeable. All questions were answered thoroughly. Corrie Tran MD, MARY Board Certified, [place] Board of Physical Medicine and Rehabilitation (ABPMR) Board Certified, [place] Board of Electrodiagnostic Medicine (ABEM) Orders: Referrals Neurosurgery Referral G89.29 - Other chronic pain, M48.062 - Spinal stenosis, lumbar region with neurogenic claudication, M54.41 - Lumbago with sciatica, right side, M54.42 - Lumbago with sciatica, left side Coding Level of Care Code Est Pt Level 4 (30207) Diagnoses Chronic bilateral low back pain with bilateral sciatica M54.42; M54.41; G89.29 Back pain laterality: bilateral Back pain location: low back pain Sciatica laterality: bilateral sciatica Sciatica presence: with sciatica Spinal stenosis of lumbar region with neurogenic claudication M48.062 Neurogenic claudication status: with neurogenic claudication
[2024-10-12 08:46] VITALS: BMI 19.3
== END 2024-10-12 09:02 | disposition home or self-care (01) ==
LOC: HO.HOS 08:34
PROVIDERS: PCP Physician Assistant; Visit Provider Physical Medicine & Rehabilitation
DX: M54.42 Lumbago with sciatica, left side (principal); M54.41 Lumbago with sciatica, right side; G89.29 Other chronic pain; M48.062 Spinal stenosis, lumbar region with neurogenic claudication
CPT/HCPCS: 99214

== ENCOUNTER → 2024-10-12 08:34 | Outpatient (BNVA) | payer OTHER, MEDICAID, SELFPAY | PROVIDERS: PCP Physician Assistant; Visit Provider Physical Medicine & Rehabilitation ==

== ENCOUNTER 2024-10-16 13:37 | Outpatient (AMB) | payer OTHER, MEDICAID, SELFPAY ==
--- NOTE | 2024-10-16 13:40 | A.SPINEOV_ITS ---
Vital Signs 10/16/24 13:57 Height 5 ft 6 in Weight 160 lb BMI 25.8 Intake Visit Reasons: LBP Intake Note: Ms. Laith Zhou is here today c/o Low back pain that radiates down to the legs causing numbness. Geographic Information Systems Manager Required: Yes Geographic Information Systems Manager Services: Geographic Information Systems Manager Present Geographic Information Systems Manager Name: Kymberly Sy Allergies No Known Allergies Allergy (Verified 10/16/24 13:59) Physical Exam Vital Signs: BMI result Body Mass Index 25.8 Assessment & Plan Assessment & Plan (1) Lumbar radiculopathy: Code(s): M54.16 - Radiculopathy, lumbar region Category: Medical Plan Dear Dr. Vega, Thank you for referring Gabby to our office today. She is a pleasant 54-year-ol d female who comes in today with a chief complaint of primarily left leg pain. She does have component of low back pain but states that her leg pain is far worse than her low back. When describing the pain she runs her hand down the lateral aspect of her left thigh, over the anterior tibialis terminating near the base of the ankle/top of the foot. She does endorse some numbness/tingling and burning associated with this pain. In regards to her walking, she states she is actually able to ambulate fairly well. She does have some pain with ambulation, but states that lying on her left side exacerbates her pain the worst. Sitting down helps to alleviate her pain. She was previously evaluated for her lumbar spine concerns in [place] about 10 years ago when she used to live there. She was recommended for injections in the lumbar spine, however she is adamantly against having injections. She reports that she has diabetes, and has a family member who had spine cortisone injections which she states put them into renal failure requiring dialysis. She reports she has tried several courses of physical therapy, without significant symptom relief. She has attempted stretching/exercise. She has utilized flpz-spk-puhhvns Advil, Tylenol, and pain gel/creams without significant relief of symptoms. PMH: Depression, constipation, T2DM (patient reports last A1C done 10/09/24 was 6.4 - confirmed by lab records). Hyperlipidemia, anxiety. Social hx: The patient does not smoke, reports no substance use. Medications: See [employer] list. Allergies: NKDA Physical exam: The patient has 5/5 strength in her upper and lower extremities. She ambulates well and rises from a seated position independently and without difficulty. She has no significant sensational deficits on exam. Her left patellar reflex is absent. The rest of her reflexes are 2+ intact. (-) bilateral straight leg raise. (-) Metzger's, (-) clonus. Imaging review: MRI of the lumbar spine was completed here at [facility]. At L4-5 there is moderate central canal and moderate right sided forminal stenosis, There is also moderate-severe left-sided foraminal stenosis at this level. There is moderate bilateral foraminal stenosis at L5-S1 secondary to a disc extrusion seen at this level. Impression: Gabby is a pleasant 54-year-old female comes in today with a chief complaint of predominantly left leg pain. She reports that this has been ongoing for about 10 years, and has slowly worsened over the course of the last 1-2 years. The dermatomal distribution of her pain most matches the left-sided foraminal stenosis at L4-5, and her absent left patella reflex also points to compression at L4, however it is difficult to ignore the disc extrusion seen at L5-S1. For this reason I believe a lumbar decompression of both L4-5 and L5-S1 may be in the patient's best interest, despite her reported pain history x 10 years. I will review this case with Dr. Redman to see if he believes this patient is a good candidate for lumbar decompression surgery. I will update this note after I review this case with him. Thank you for allowing us to care for your patient. The total time spent with this visit with this patient was 45 minutes reviewing history, physical exam, MRI imaging review, and implementation of treatment plan or further diagnostic testing Davonte Redman MD,PhD [facility] Coding Level of Care Code New Pt Level 4 (35281) Diagnoses Lumbar radiculopathy M54.16
[2024-10-16 13:57] VITALS: BMI 25.8
--- OUTSIDE RECORDS SUMMARY | 2024-10-16 16:47 | XMS_ITS | Clinical Summary ---
Author Organization [employer] Address [address] [facility] [address] [place] [address] Care Team Providers Care Carboy Filler Name Role Phone Unavailable Primary Care Provider [...] Description 11/07/2024 1:00 PM EDT Office Visit [facility] ADULT DENTAL [address] [place] [address] Holly Zamorano Health Maintenance Due Date Last [...] Most Recently Relevant to Health Maintenance [facility] - [employer] DENTAL
== END 2024-10-16 14:22 | disposition home or self-care (01) ==
LOC: HO.HNS 13:37
PROVIDERS: PCP Physician Assistant; Referring Provider Physical Medicine & Rehabilitation; Visit Provider Physician Assistant
DX: M54.16 Radiculopathy, lumbar region (principal)
CPT/HCPCS: 99204

== ENCOUNTER 2024-10-19 08:19 | Outpatient (REF) | payer MEDICARE, MEDICAID, SELFPAY ==
[2024-10-19 09:25] LABS: TSH reflex Free T4 2.12 uIU/mL (0.32-4.0)
== END 2024-10-19 08:20 | disposition home or self-care (01) ==
LOC: HO.LAB 08:19
PROVIDERS: PCP Physician Assistant; Visit Provider Physician Assistant
DX: E78.00 Pure hypercholesterolemia, unspecified (principal)
CPT/HCPCS: 36415; 84443

== ENCOUNTER 2024-10-29 13:41 | Outpatient (AMB) | payer MEDICARE, MEDICAID, SELFPAY ==
--- NOTE | 2024-10-29 14:23 | HO.SPINEOV ---
Intake Visit Reasons: Surgical discussion Intake Note: Ms. Laith Zhou is here today to discuss surgical options. Slot Floor Attendant Required: Yes Slot Floor Attendant Name: Tablet Allergies No Known Allergies Allergy (Verified 10/16/24 13:59) Assessment & Plan Assessment & Plan (1) Lumbar radiculopathy: Code(s): M54.16 - Radiculopathy, lumbar region Category: Medical Plan Gabby comes in today to discuss surgery. Her films were reviewed with the attending neurosurgeon Dr. Redman who specifically looked at images on T2 axial films, and stated that the initial 1/3 of L4 on the left foramen is stenosed. He feels that this can be addressed adequately with a left L4-5 lumbar decompression. We discussed this surgery extensively utilizing the spine models in office. I answered any questions that she had. She understands that she will in the to stop her Trulicity 7 days prior to surgery. The patient was given risk and benefits of surgery including but not limited to infection, hematoma, nerve injury, durotomy, weakness, bowel/bladder injury, persistent pain, and pseudoarthosis or instrumentation failure if they are undergoing lumbar fusion. We also discussed the option to continue with conservative treatment and patient wishes to proceed with surgery. They are aware they should stop NSAIDs 7 days prior to surgery. All questions were answered to the best of our ability. If there is anything about this patients medical history that we have overlooked or concerns you have about us proceeding with surgery we would appreciate any input you can offer. Davonte Redman MD,PhD [facility] Coding Level of Care Code Global (68884) Diagnoses Lumbar radiculopathy M54.16
--- OUTSIDE RECORDS SUMMARY | 2024-10-29 16:15 | XMS_ITS | Clinical Summary ---
Author Organization [employer] Address [address] [place] [address] Care Team Providers Care Ink Printer Name Role Phone Unavailable Primary Care Provider [...] Description 11/07/2024 1:00 PM EDT Office Visit [facility] ADULT DENTAL [address] [place] [address] Holly Zamorano Health Maintenance Due Date Last [...] Most Recently Relevant to Health Maintenance Insurance DENTAL-[facility] MEDICAID STAND ADULT DENTAL - [employer] DENTAL
== END 2024-10-29 14:53 | disposition home or self-care (01) ==
LOC: HO.HNS 13:42
PROVIDERS: PCP Physician Assistant; Visit Provider Physician Assistant
DX: M54.16 Radiculopathy, lumbar region (principal)
CPT/HCPCS: 99214

== ENCOUNTER → 2024-10-29 13:41 | Outpatient (BNVA) | payer MEDICARE, MEDICAID, SELFPAY | PROVIDERS: PCP Physician Assistant; Visit Provider Physician Assistant | DX: M54.16 Radiculopathy, lumbar region (principal) | CPT/HCPCS: 99212 ==

== ENCOUNTER 2024-11-06 14:58 | Outpatient (AMB) | payer MEDICARE, MEDICAID, SELFPAY ==
--- NOTE | 2024-11-06 15:56 | A.OFFVIS_ITS ---
Intake Visit Reasons: 1- 2 months Litholink Intake Note: Patient presents today for follow up on: litholink results Urology Medications: None Blood Thinner: none Automation Technologist Required: Yes Automation Technologist Services: Automation Technologist Present Automation Technologist Name: [id number] Accompanied by: Self / Same As Patient Allergies No Known Allergies Allergy (Verified 11/06/24 15:59) Medication List - Last Reconciled 11/06/24 by WARREN Hansen-DARIA atorvastatin 40 mg PO DAILY blood sugar diagnostic (Accu-Chek Guide test strips) HACER PRUEBA DE AZUCAR EN LISBET HASTA TON VECES AL ALECIA ALEX INDICADO blood-glucose meter (OneTouch Verio Flex Start kit) As directed clonazepam 0.5 mg PO Q6H dapagliflozin propanediol (Farxiga) 10 mg PO DAILY 90 days dulaglutide (Trulicity) 0.75 mg (0.5 mL) subcut QWEEK 90 days gabapentin 300 mg PO TID 90 days insulin aspart U-100 (Novolog FlexPen U-100 Insulin aspart) 30 units (0.3 mL) topical TID insulin glargine (Lantus Solostar U-100 Insulin) 60 units (0.6 mL) subcut QPM metformin ER 500 mg PO DAILY 90 days metronidazole 500 mg PO Q12H miconazole nitrate 2% (Miconazole-7) 1 appful vaginal BEDTIME 7 days pantoprazole 40 mg PO DAILY 90 days pen needle, diabetic (BD Ultra-Fine Alvina Pen Needle) TID USE sennosides-docusate sodium 8.6-50 mg 2 tab-caps (2 x 8.6-50 mg) PO BEDTIME 60 days NS sertraline 100 mg PO DAILY sucralfate (Carafate) 10 mL PO BID 30 days HPI Comments Details: Sammy is a very pleasant 54 year-old Bolivian-speaking female patient of Dr. Disla. She has a past medical history of diabetes, cholesterol, GERD, nephrolithiasis, depression and anxiety. She presents to the office today for follow-up of her nephrolithiasis. In discussion with the patient today she reports to be doing and feeling well. She denies having had any bothersome urinary issues or concerns since her last office visit. Recent 24 hour urine collection results were reviewed with the patient today 07/17 we discussed suboptimal urine volume of 1.7 with an increase to a proximally 2-2-1/2 L per day. We also discussed low urine pH as well as mild uric acid super saturation. She discusses her upcoming surgical procedure for her back in November followed by a cruise she was going on December of this year. We discussed importance of increase in water intake as well as adding 1 oz of lemon juice to water daily. She does endorse to not be drinking enough water daily. Patient with a previous history of surgical intervention to include left-sided ESWL with Dr. Lucas 02/14. She denies urinary urgency, urinary frequency, incontinence, nocturia, hematuria, dysuria, foul smelling urine, changes to urinary stream, fever, and or chills. She is happy with her current voiding parameters. She otherwise denies any other issues or concerns at this time. [facility] Medical History Lumbar spinal stenosis Lumbar disc herniation Chronic back pain Hypercholesteremia Depression Generalized anxiety disorder Peripheral neuropathy Nephrolithiasis Type 2 diabetes mellitus GERD (gastroesophageal reflux disease) Surgical History Hx of lithotripsy History of esophagogastroduodenoscopy (EGD) Hx of colonoscopy History of eye surgery History of cholecystectomy Family History Mother Diabetes Hypertension Father Diabetes Hypertension Prostate cancer Social History Housing: House Alcohol intake: never Patient Tobacco Use Status: Never used Tobacco e-Cigarette/Vaping Use: Never Used Second Hand Smoke Exposure: No service: No Current occupational status: disabled Cognitive needs: No Hearing needs: No Vision needs: No Female Reproductive History Menstrual Age of Menarche: 14 Review of Systems Const Reports no additional complaints Eyes Reports no additional complaints ENT Reports no additional complaints Card Reports as per HPI Resp Reports no additional complaints GI Reports as per [facility] Reports as per [facility] Musc Reports no additional complaints Neuro Reports no additional complaints Psych Reports as per [facility] Endo Reports as per HPI Ramiro/Lymph Reports no additional complaints Aller/Immun Reports no additional complaints Physical Exam Const General: cooperative, healthy appearing, comfortable, no acute distress, well developed and alert Orientation/consciousness: patient oriented x3 Limitations: no limitations HEENT Head: Yes normal to inspection, Yes normocephalic and Yes atraumatic Ears: hearing grossly normal bilaterally Eyes General: appearance normal, both eyes and all related structures Neck Neck: Yes normal visual inspection and Yes trachea midline Chest Chest palpation & inspection: normal inspection of the chest Resp Effort & Inspection: normal respiratory effort and able to speak in complete sentences Cardio Rate: regular rate GI Inspection: Yes normal to inspection General: Yes no CVA tenderness Back/Spine/Pelvis Back: no CVA tenderness Skin General skin exam: no rashes or lesions noted Neuro General: patient oriented x3 Extrem General: Yes normal to inspection Psych Appearance: grossly normal and well kempt Mental Status: mental status grossly normal Speech and movement: Clear speech present Affect: normal affect Attitude: cooperative Thought process: Normal thought process present Thought content: Normal thought content present Insight: Fair insight present (Psych) Judgement: Fair judgement present (Psych) Results AMB Urinalysis, Automated UA Leukoctes 0 Toi/uL Last Edit by [employer] on 11/06/24 15:58 UA Nitrite Negative Last Edit by [employer] on 11/06/24 15:58 UA Urobilinogen 0.2 mg/dL Last Edit by [employer] on 11/06/24 15:58 UA Protein 0 mg/dL Last Edit by [employer] on 11/06/24 15:58 UA pH 6.0 Last Edit by [employer] on 11/06/24 15:58 UA Blood 0 Shadi/uL Last Edit by [employer] on 11/06/24 15:58 UA Specific Cove 1.015 Last Edit by [employer] on 11/06/24 15:58 UA Ketone Negative Last Edit by [employer] on 11/06/24 15:58 UA Bilirubin 0 mg/dL Last Edit by [employer] on 11/06/24 15:58 UA Glucose 1000 mg/dL Last Edit by Ely Carr on 11/06/24 15:58 Assessment & Plan Assessment & Plan (1) Nephrolithiasis: Code(s): N20.0 - Calculus of kidney Category: Medical Plan In office urinalysis results reviewed with the patient today; as noted above. Recent 24 hour urine collection results reviewed with the patient today; as noted above. We discussed importance of adequate hydration relation urinalysis as well as overall health and well-being. Continue adding 1 oz of lemon juice to water daily. She currently denies any bothersome urinary issues or concerns. She reports be happy with current voiding parameters. Will obtain renal ultrasound for surveillance monitoring. Follow-up in 3-6 months with imaging to be completed prior; or sooner with any issues, concerns, and or questions. Orders: Orders AMB Urinalysis Automated Today Z13.9 - Encounter for screening, unspecified US renal BI 3 Months N20.0 - Calculus of kidney Patient Instructions: The patient had an opportunity to ask questions regarding the treatment plan. All questions were answered. Physical exam, labs, and imaging were discussed and reviewed in detail. As well as risks, benefits, and discussion of treatment choices. No major barriers to understanding were identified. The patient expressed understanding and agreement with the above treatment plan. The patient was made aware they should contact our office by phone for worsening of their current condition, the appearance of new symptoms, or with any questions or concerns. Compliance is encouraged with any medications and follow up testing that is ordered. It is a privilege to be allowed the opportunity to participate in? your urological care.? Again, if you have any questions or concerns If you have any questions or concerns please do not hesitate to contact me. The office is [phone]. This note is constructed using voice recognition software. While every effort has been made to ensure accuracy bill peddler errors may have been included. Yours sincerely, LUISA Hansen Coding Level of Care Code Est Pt Level 3 (91073) Complex EM visit Add On G2211 Diagnoses Nephrolithiasis N20.0
--- OUTSIDE RECORDS SUMMARY | 2024-11-06 18:15 | XMS_ITS | Clinical Summary ---
Author Organization [employer] [facility] Address [address] [place] [address] Care Team Providers Care Family Educator Name Role Phone Unavailable Primary Care Provider [...] Description 11/07/2024 1:00 PM EDT Office Visit [facility] ADULT DENTAL [address] [place] [address] ZamoranoLuis Eduardosa Health Maintenance Due Date Last [...] Most Recently Relevant to Health Maintenance Insurance [facility] MEDICAID STAND ADULT DENTAL - [employer] DENTAL
== END 2024-11-06 15:56 | disposition home or self-care (01) ==
LOC: HO.HUSH 14:58
PROVIDERS: PCP Physician Assistant; Visit Provider Nurse Practitioner Family
DX: Z13.9 Encounter for screening, unspecified (principal); N20.0 Calculus of kidney
CPT/HCPCS: 99213; G2211

== ENCOUNTER → 2024-11-06 14:58 | Outpatient (BNVA) | payer MEDICARE, MEDICAID, SELFPAY | PROVIDERS: PCP Physician Assistant; Visit Provider Nurse Practitioner Family | DX: N20.0 Calculus of kidney (principal) | CPT/HCPCS: 81003; 99212 ==

== ENCOUNTER 2024-11-07 10:29 | Outpatient (AMB) | payer MEDICARE, MEDICAID, SELFPAY ==
--- NOTE | 2024-11-07 10:30 | MHC.OFFVIS ---
Vital Signs 11/07/24 10:31 Height 5 ft 6 in Weight 163 lb BMI 26.3 BP 109/53 L Blood Pressure Location Lt brachial Position Sitting Pulse 63 Pulse Oximetry (%) 98 Oxygen Delivery Method Room Air Intake Visit Reasons: GERD with constipation/Ev[facility] Pt [facility] 10/18/23 Intake Note: Patient complex follow up /Evita [facility] 10/18/23 for Gastritis, last Colonoscopy on 09/21/2024 with 5 yrs recall, h pylori stool results. Patient cc: acid reflux on and off, early satiety, abdominal bloating, and constipation. 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 [employer] Name: Tyson Geller [phone] Accompanied by: Self / Same As Patient Allergies No Known Allergies Allergy (Verified 11/07/24 10:30) Medication List - Last Reconciled 11/07/24 by Aminta Alegre CNP atorvastatin 40 mg PO DAILY blood sugar diagnostic (Accu-Chek Guide test strips) HACER PRUEBA DE AZUCAR EN LISBET HASTA TON VECES AL ALECIA ALEX INDICADO blood-glucose meter (OneTouch Verio Flex Start kit) As directed clonazepam 0.5 mg PO Q6H dapagliflozin propanediol (Farxiga) 10 mg PO DAILY 90 days dulaglutide (Trulicity) 0.75 mg (0.5 mL) subcut QWEEK 90 days gabapentin 300 mg PO TID 90 days insulin aspart U-100 (Novolog FlexPen U-100 Insulin aspart) 30 units (0.3 mL) topical TID insulin glargine (Lantus Solostar U-100 Insulin) 60 units (0.6 mL) subcut QPM metformin ER 500 mg PO DAILY 90 days miconazole nitrate 2% (Miconazole-7) 1 appful vaginal BEDTIME 7 days pantoprazole 40 mg PO DAILY 90 days pen needle, diabetic (BD Ultra-Fine Alvina Pen Needle) TID USE sennosides-docusate sodium 8.6-50 mg 2 tab-caps (2 x 8.6-50 mg) PO BEDTIME 60 days NS sertraline 100 mg PO DAILY sucralfate (Carafate) 10 mL PO BID 30 days HPI HPI GERD with constipation/[facility] 10/18/23: Details: Patient is a 54-year-old female with PMH of and GERD, depression, DMII, chronic back pain and GERD. Last visit with MICHELLE Maurice 10/18/2023 for follow-up after double. 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 Reports taking pantoprazole 40 mg daily. States GERDs continues and consistent with primary symptoms of regurgitation and bloating. Associated symptoms: nausea, early satiety Aggravating factors:after meals Alleviating attempts:late night eating Patient denies: systemic symptoms, vomiting, appetite changes, unintentional wt loss, ab pain, dysphasia, cardiopulmonary symptoms, bladder changes or melena/hematochezia. History taking regarding stools is unclear, suspect due to language barrier despite bi solutions architect. She is taking the combo senna-Docusate every two days to induced a bowel movement. However, reports type 4 most days and stool will turn to type 7 after taking the senna-Docusate. Endorses hemorrhoids Associated symptoms: bright red blood with wiping consumes fiber via oatmeals, fruit, vegetables sugar free juices, 3-4 cups coffee/day, water 12-16 oz/day PFS Medical History Lumbar spinal stenosis Lumbar disc herniation Chronic back pain Hypercholesteremia Depression Generalized anxiety disorder Peripheral neuropathy Nephrolithiasis Type 2 diabetes mellitus GERD (gastroesophageal reflux disease) Surgical History Hx of lithotripsy History of esophagogastroduodenoscopy (EGD) Hx of colonoscopy History of eye surgery History of cholecystectomy Family History Mother Diabetes Hypertension Father Diabetes Hypertension Prostate cancer Social History Housing: House Alcohol intake: never Patient Tobacco Use Status: Never used Tobacco e-Cigarette/Vaping Use: Never Used Second Hand Smoke Exposure: No service: No Current occupational status: disabled Cognitive needs: No Hearing needs: No Vision needs: No Female Reproductive History Menstrual Age of Menarche: 14 Review of Systems Const Reports as per HPI ENT Reports as per HPI Card Reports as per HPI Resp Reports as per HPI GI Reports as per HPI Reports as per HPI Physical Exam Vital Signs: Last Vital Signs Pulse 63 11/07/24 10:31 BP 109/53 L 11/07/24 10:31 Pulse Ox 98 11/07/24 10:31 Oxygen Delivery Method Room Air 11/07/24 10:31 BMI result Body Mass Index 26.3 Results Reviewed Results Reviewed: Laboratory Tests 10/09/24 09:23 WBC 6.9 RBC 4.19 L Hgb 12.9 Hct 40.4 MCV 96.4 MCH 30.8 MCHC 31.9 RDW 13.7 Plt Count 236 MPV 11.6 Absolute Nucleated RBC 0.000 Nucleated RBC % (auto) 0.0 Date of Service: 06/07/24 Procedure(s): FL barium swallow Accession Number(s): [id number] cc: Bill Disla PA-C~ EXAMINATION: XR FLUOROSCOPY UPPER GI WITH AIR CLINICAL INFORMATION: Dysphagia COMPARISON: None TECHNIQUE: Fluoroscopic air contrast upper GI examination was performed utilizing standard techniques with thin and thick barium and effervescent granules. Numerous spot images were obtained. FINDINGS: Lateral cine images of the oropharynx and hypopharynx demonstrate normal swallow mechanism with normal epiglottic inversion and soft palate elevation. There is trace laryngeal penetration with thick barium. No tracheal penetration, glottic or subglottic aspiration identified. No nasopharyngeal reflux present. There is an anterior bridging osteophyte at C4-C5 that is causing mild posterior compression of the hypopharynx/upper esophagus (appearance highly suggestive of DISH). There was no significant cricopharyngeal achalasia. Dual and single contrast images of the esophagus demonstrate normal caliber, contour, and mucosal pattern. No evidence of stricture, mass, or ulcerations identified. Esophageal peristalsis was mildly disorganized. No evidence of hiatus hernia identified. No significant gastroesophageal reflux was seen during the course of the examination and on reflux views. Surgical clips are present in the upper quadrant. Dual contrast and single contrast images of the stomach demonstrated a normal contour. The areae gastrica have a thickened/prominent appearance, suggestive of gastritis. No masses or ulcerations are present. Contrast freely passed into the gastric antrum and duodenal bulb without delay. Single and air-contrast images of the duodenal bulb demonstrate no abnormality. The duodenal sweep has a normal appearance, course, and mucosal fold appearance. The imaged proximal jejunum has a normal fold pattern and caliber. FLUOROSCOPY TIME: 3 minutes 42 seconds Number of Spot Images: 8 Number of Cine: 15 DOSE AREA PRODUCT: 1929 uGy-m2 (microgray-meter squared) FL/FL barium swallow IMPRESSION: 1. Trace laryngeal penetration with thick barium. No subglottic aspiration. 2. Anterior bridging osteophyte at C4-5 is causing mild posterior compression of the hypopharynx/upper esophagus. Appearance is highly suggestive of DISH. 3. Mild esophageal dysmotility. 4. Status post cholecystectomy. 5. Mildly thickened appearance of the areae gastricae, suggestive of gastritis. FLEXIBLE TRANSORAL UPPER GASTROINTESTINAL ENDOSCOPY AND COLONOSCOPY PROCEDURE NOTE 09/21/2023 UPPER ENDOSCOPY Consent: Indications for the procedure and potential complications of bleeding, perforation, reaction to medications and missed diagnosis were discussed with the patient and informed consent was obtained. Instrument: Olympus GIF H 190 J mid size upper endoscope Monitoring: Vital signs and clinical assessment, continuous EKG monitoring, Pulse oximetry, Carbon Dioxide monitoring and blood pressure monitoring were done throughout the procedure. Procedure: The patient was placed in the left lateral decubitis position and pre-procedure medications were administered and a bite block was placed. The endoscope was inserted into the mouth and advanced under direct vision to the third part of duodenum. A careful inspection was made as the upper endoscope was withdrawn including a retroflexed examination of the proximal stomach; Findings and interventions are described below. Findings: Larynx:normal Esophagus: GE junction at 38 cm, diaphragm hiatus at 38 cm, bx taken from GEj and distal esophagus --mild esophagitis noted Stomach: Mild erythema. Biopsies were obtained. Grade 2 flap valve on retroflexed examination of the cardia. Duodenum: Normal bulb and descending duodenum, Intervention: Biopsies as noted above COLONOSCOPY Procedure: The patient was placed in the left lateral decubitis position and pre-procedure medications were administered. After a digital rectal examination of the ano-rectum, the video colonoscope was inserted into the rectum and advanced through the colon to the cecum/TI. The colonoscope was slowly withdrawn in a retrograde panoramic fashion and the colon mucosa was carefully examined including a retroflexed view of the rectum. Findings and interventions are described below. Procedure Difficulty:moderate pressure applied Findings: Terminal Ileum-normal Cecum:normal Ascending Colon: normal Transverse Colon -normal Descending Colon: 8-10 mm sessile polyp removed with cold snare Sigmoid Colon: normal Rectum: Retroflexion with small internal hemorrhoids, grade I Anorectum - normal Colon preparation: Crandon Bowel Preparation Scale Right colon; 2 Transverse colon: 2 Left colon; 1-2 Impression and Post Procedure Diagnosis: Endoscopy Findings: esophagitis gastritis Colonoscopy Findings: polyp internal hemorrhoids Plan: Await Pathology results Repeat Colonoscopy in 5- years due to fair prep left side or earlier if clinically indicated High fiber diet leaflet avoid straining at stool, epsom salts and sitz bath, anusol supps or cream reflux precautions, cont with PPI, if H pylori pos then treat Pathology 09/21/23: Diagnosis A. Stomach, biopsy: Antral-type mucosa with moderate chronic inactive inflammation; no Helicobacter organisms seen. B. GE junction, biopsy: - Cardiac-type mucosa with moderate chronic inactive inflammation; no intestinal metaplasia seen. - Squamous mucosa within normal limits. C. Esophagus, distal, biopsy: Squamous epithelium within normal limits; no inflammation seen. D. Colon, descending, polypectomy: Fragments of tubular adenoma; negative for high-grade dysplasia or carcinoma. Assessment & Plan Assessment & Plan (1) Chronic constipation: Code(s): K59.09 - Other constipation Category: Medical Plan: Unclear on stool pattern. Advised to take sennosides-docusate 2 tablets daily. Last colonoscopy 2023 with 8-10 mm sessile polyp to descending colon. Advise repeat colonoscopy in 3 years, she will be due 2026. Reinforced lifestyle modifications to promote regularity: -higher fiber diet -adequate hydration with water -150 minutes of moderate intensity exercise per week (2) GERD (gastroesophageal reflux disease): Code(s): K21.9 - Gastro-esophageal reflux disease without esophagitis Category: Medical Qualifiers: Esophagitis presence: without esophagitis Qualified Code(s): K21.9 - Gastro-esophageal reflux disease without esophagitis Plan: Last EGD 09/21/2023-moderate chronic inactive inflammation noted to stomach and cardia-type mucosa, otherwise normal. Some symptoms consistent with dyspepsia. We will re-screened for H pylori. Continue pantoprazole 40 mg daily, taken on an empty stomach at least 30 minutes before 1st meal. We will add on famotidine for breakthrough symptoms. Can consider switching to esomeprazole at next visit if no improvement. Education on GERD prevention-Advised against heavy meals. Encouraged small frequent meals VS large meals, remaining upright after meals x 2-3 hours, avoid late night eating/spicy foods/caffeine/alcohol/known triggers and tight fitting clothes Plan Follow-up 3 months or sooner as needed. Time: I spent a total of 60 minutes on the date of encounter which includes: Preparing to see the patient (reviewed previous documentation, test results and medical history) Performing a medically appropriate exam and/or evaluation Ordering medications, tests, and procedures Documenting clinical information in the health record Orders: Orders H pylori Ag Stool 11/07/24 R10.13 - Epigastric pain Medications: New famotidine Take one tablet daily as needed for acid reflux 20 mg PO DAILY PRN 90 tabs 1RF GERD Coding Level of Care Code Established Pt Est Pt Level 4 (41477) Patient Type Established Diagnoses Chronic constipation K59.09 Gastroesophageal reflux disease without esophagitis K21.9 Esophagitis presence: without esophagitis
[2024-11-07 10:31] VITALS: BP 109/53; PULSE 63; O2SAT 98; BMI 26.3
--- OUTSIDE RECORDS SUMMARY | 2024-11-07 12:18 | XMS_ITS | Clinical Summary ---
Author Organization [facility] Address [address] [place] [address] Care Team Providers Care Associate Doctor Name Role Phone Unavailable Primary Care Provider [...] Care Team (Late st Contact Info) Description 05/15/2025 1:00 PM EDT Office Visit [facility] [address] [place] [address] ZamoranoLuis Eduardosa Health Maintenance Due Date Last [...] Most Recently Relevant to Health Maintenance Insurance DENTAL-[facility] MEDICAID STAND ADULT DENTAL - [employer] DENTAL
== END 2024-11-07 11:51 | disposition home or self-care (01) ==
PROVIDERS: PCP Physician Assistant; Visit Provider Nurse Practitioner Family
DX: K59.09 Other constipation (principal); K21.9 Gastro-esophageal reflux disease without esophagitis
CPT/HCPCS: 99215

== ENCOUNTER → 2024-11-07 10:29 | Outpatient (BNVA) | payer MEDICARE, MEDICAID, SELFPAY | PROVIDERS: PCP Physician Assistant; Visit Provider Nurse Practitioner Family | DX: K59.09 Other constipation (principal); K21.9 Gastro-esophageal reflux disease without esophagitis | CPT/HCPCS: 99212 ==

== ENCOUNTER 2024-11-22 06:58 | Day surgery (SDC) | payer MEDICARE, MEDICAID, SELFPAY ==
--- OUTSIDE RECORDS SUMMARY | 2024-11-05 08:08 | XMS_ITS | Clinical Summary ---
Author Organization [employer] [facility] Address [address] [place] [address] Care Team Providers Care Senior Staff Consultant Name Role Phone Unavailable Primary Care Provider [...] A1c<7 in clinic today. Continue current medications: doug Barrow, metformin 1000mg BID, Lantus 30u qhs and lispro 10-12u TID. Encounters Date Type Department Care Team Description 10/31/2024 Travel from Last 3 Months Social History Tobacco Use Types Packs/Day Years [...] Description 11/07/2024 1:00 PM EDT Office Visit [facility] ADULT DENTAL [address] [place] [address] ZamoranoLuis Eduardosa Health Maintenance Due Date Last Done Comments [...] Most Recently Relevant to Health Maintenance Insurance DENTAL-[facility] MEDICAID STAND ADULT DENTAL - [employer] DENTAL
--- OUTSIDE RECORDS SUMMARY | 2024-11-05 08:08 | XMS_ITS | Encounter Summary ---
Author Organization [facility] [facility] Address [address] [place] [address] Care Team Providers Care Machine Adjuster Helper Name Role Phone Unavailable Primary Care Provider Unavailabl e Encounter Details Date Type Department Care Team (Latest Contact Info) Description 10/31/2024 Travel Social History Tobacco Use Types Packs/Day Years Used Date Smoking Tobacco: Never Smokeless Tobacco: Current Alcohol Use Standard Drinks/Week Comments Defer 0 (1 standard drink = 0.6 oz pur e alcohol) Comments Unknown Sex and Gender Information Value Date Recorded Sex Assigned at Female 08/11/2023 11:20 AM EST Legal Sex Female 1:49 PM EDT Gender Identity Female 08/11/2023 11:20 AM EST Sexual Orientation Straight 08/11/2023 11 :20 AM EST documented as of this encounter Plan of Treatment Upcoming Encounters Date Type Department Care Team (Late st Contact Info) Description 11/07/2024 1:00 PM EDT Office Visit [facility] ADULT D[facility] [address] [place] [address] Holly Zamorano documented as of this encounter Visit Diagnoses Not on filedocumented in this encounter
[2024-11-15 11:49] VITALS: BP 114/60; PULSE 64; RESP 18; O2SAT 99; BMI 26.8
[2024-11-22] VITALS (11 sets, daily range): BP systolic 106–153; BP diastolic 63–84; PULSE 60–90; RESP 12–18; TEMP 36.1–36.4; O2SAT 97–100
--- NOTE | ~2024-11-22 | FL_ITS ---
EXAMINATION: FL GUIDANCE ONLY HISTORY: L4-5 MICRODISCECTOMY COMPARISON: None available. TECHNIQUE: Fluoroscopy time: 4.4 seconds. Cumulative Dose: 2.8740 mGy. DAP: 1.2501 mGym2 Images: 1. FINDINGS: A single fluoroscopic spot film of the lumbar spine in the lateral projection demonstrates a probe directed toward the L4-5 intervertebral disc space from a posterior approach. FL/FL guidance in OR IMPRESSION: Fluoroscopy during procedure. Please see procedure report for additional information. Electronically signed by: Ricky García MD 11/22/2024 01:35 PM EDT
--- NOTE | 2024-11-22 07:18 | MHC.SHP ---
Pre-Procedural Eval Section A - 24 Hr Update-Section A only Date of Service: 11/22/24 The patient is an INPATIENT: No Changes since office visit: No Cold of Flu in the past 2 weeks, No New Medical Problems, No Changes in Medication and No Patient answered all questions The patient has been examined within 24 hours of the surgical procedure. The History & Physical has been completed within 30 days and I have reviewed it.: No Section B - Complete if H&P > 30 days Chief Complaint: Radiculopathy, lumbar region Allergies: Allergies Allergy/AdvReac Type Severity Reaction Status Date / Time No Known Allergies Allergy Verified 11/07/24 10:30 Review of Systems Sugical H&P ROS: Negative: Constitution, Cardiovascular, Respiratory, Neurological, Psychiatric, Hem-Onc, Allergic/Immunologic, Gastrointestinal, Genitourinary, Musculoskeletal, Integumentary, Endocrine and Eyes/Ears/Nose/Throat Exam Surgical H&P Exam: Normal: HEENT, Normal: Heart, Normal: Lungs, Normal: Extremities, Normal: Abdomen, Normal: Skin and Normal: Neurological (Awake alert oriented x3) Plan Diagnosis/Plan: Unchanged Left L4-5 decompression Time Spent With Patient Time: Total time managing care of this patient today __5__ minutes.
[2024-11-22] MEDS: methocarbamoL 750 MG TABLET PO (07:32)
[2024-11-22] MEDS: Gabapentin 300 MG CAPSULE PO (07:34)
[2024-11-22] MEDS: Lactated Ringers 1,000 ML 100 ML IVCONT (07:43)
[2024-11-22 07:45] LABS: Glucose, Whole Blood 109 mg/dL (60-115)
--- NOTE | 2024-11-22 09:02 | P.CONAN_ITS ---
Documented by User: Nancy Arambula NP 11/15/24 12:34 HPI - Anesthesia Eval Consult details Narrative: 54yo F for Left L4-5 Microdiscectomy, 11/22/24 No recent illness No CP/SOB with treadmill DM2: controlled GERD: controlled on H2 rocio Anesthesia Pre-Procedure Meds Is the patient on any of the following meds?: GLP1/DPP4 and SGLT2 Inhib PMFSH Active Problems Active Problems: All Active Problems Lumbar radiculopathy (Acute) Perimenopause (Acute) Cyst near tailbone (Acute) Dysphagia (Acute) Chronic constipation (Acute) Flank pain (Acute) MDD (major depressive disorder), recurrent episode, moderate (Acute) Breast cancer screening (Acute) Annual physical exam (Acute) Right knee pain (Acute) Gastritis (Acute) Sessile serrated polyp of colon (Acute) Well woman exam with routine gynecological exam (Acute) Encounter for screening examination for sexually transmitted disease (Acute) Cervical cancer screening (Acute) Rectal bleeding (Acute) GERD (gastroesophageal reflux disease) (Acute) Generalized anxiety disorder (Acute) Hypercholesteremia (Acute) Type 2 diabetes mellitus (Acute) Lumbar spinal stenosis (Acute) Lumbar disc herniation (Acute) Chronic back pain (Acute) Nephrolithiasis (Acute) Past Medical History Medical History (Updated 11/08/24 @ 12:37 by Aminta Alegre CNP) Lumbar spinal stenosis Lumbar disc herniation Chronic back pain Hypercholesteremia Depression Generalized anxiety disorder Peripheral neuropathy Nephrolithiasis Type 2 diabetes mellitus GERD (gastroesophageal reflux disease) Family History Family History Mother Diabetes Hypertension Father Diabetes Hypertension Prostate cancer Family history of problems with anesthesia: No Surgical History Surgical History (Updated 11/15/24 @ 11:31 by Elina Mcclain RN) Hx of lithotripsy History of esophagogastroduodenoscopy (EGD) Hx of colonoscopy History of cholecystectomy History of Problems with Anesthesia: No Social History Social History Housing: House Are you a primary medical care evaluation specialist to a significant other at home: No Do you presently have visiting nurse or other home services: No Alcohol intake: never Patient Tobacco Use Status: Never used Tobacco e-Cigarette/Vaping Use: Never Used Second Hand Smoke Exposure: No Use of substances other than those prescribed or required for medical reasons: No Have you been hit, kicked, punched, or otherwise hurt by someone within the past year? If so, by whom?: No Are you DNR?: No Advance Directives: No Advance Directives Information Provided: Yes Advance Directives on File: No Patient : No : No service: No Current occupational status: disabled Cognitive needs: No Hearing needs: No Vision needs: No Meds Allergies Allergy/AdvReac Type Severity Reaction Status Date / Time No Known Allergies Allergy Verified 11/07/24 10:30 Home Medications ?Medication ?Instructions ?Recorded ?Confirmed ?Last Taken ?Type sertraline 100 mg tablet 100 mg PO BEDTIME 10/18/23 11/15/24 Unknown History clonazepam 0.5 mg tablet 0.5 mg PO Q6H PRN Anxiety 11/15/24 11/15/24 Unknown History famotidine 20 mg tablet 20 mg PO DAILY GERD 11/15/24 11/15/24 11/22/24 History metformin 500 mg tablet,extended 500 mg PO QPM 11/15/24 11/15/24 Unknown History release 24 hr miconazole nitrate 2 % vaginal 1 appful vaginal BEDTIME PRN 11/15/24 11/15/24 Unknown History cream (Miconazole-7) Outbreak sennosides 8.6 mg-docusate sodium 2 tab-cap PO BEDTIME PRN 11/15/24 11/15/24 Unknown History 50 mg tablet Constipation sucralfate 100 mg/mL oral 10 ml PO BID PRN Acid Reflux 11/15/24 11/15/24 Unknown History suspension (Carafate) Exam Height,Weight and Vital Signs: Height 5 ft 6 in Weight 75.296 kg Last Vital Signs Pulse 64 11/15/24 11:49 Resp 18 11/15/24 11:49 BP 114/60 11/15/24 11:49 Pulse Ox 99 11/15/24 11:49 O2 Del Method Room Air 11/15/24 11:49 Pertinent Lab Results Pertinent Lab Results: Laboratory Tests 10/09/24 09:23 WBC 6.9 Hgb 12.9 Hct 40.4 Plt Count 236 Sodium 142 Potassium 3.9 Chloride 110 H Carbon Dioxide 26 BUN 8 L Creatinine 0.70 Hemoglobin A1c % 6.4 H Airway Mallampati Class: II TM Dist: >3cm Neck ROM: Full Partial: Upper and Lower Heart: RRR Lungs: CTAB Assessment and Plan Assessment Anesthesia Assessment: Anesthesia Plan Discussed and PAT Visit Final Anesthetic Review Family History of Problems with Anesthesia: No History of Problems with Anesthesia: No Documented by User: Radha Pennington DO 11/22/24 09:04 HPI - Anesthesia Eval Anesthesia Pre-Procedure Meds Is the patient on any of the following meds?: GLP1/DPP4 and SGLT2 Inhib PMFSH Past Medical History Medical History (Updated 11/08/24 @ 12:37 by Aminta Alegre CNP) Lumbar spinal stenosis Lumbar disc herniation Chronic back pain Hypercholesteremia Depression Generalized anxiety disorder Peripheral neuropathy Nephrolithiasis Type 2 diabetes mellitus GERD (gastroesophageal reflux disease) Family History Family History Mother Diabetes Hypertension Father Diabetes Hypertension Prostate cancer Family history of problems with anesthesia: No Surgical History Surgical History (Updated 11/15/24 @ 11:31 by Elina Mcclain RN) Hx of lithotripsy History of esophagogastroduodenoscopy (EGD) Hx of colonoscopy History of cholecystectomy History of Problems with Anesthesia: No Social History Social History Housing: House Are you a primary medical care evaluation specialist to a significant other at home: No Do you presently have visiting nurse or other home services: No Alcohol intake: never Patient Tobacco Use Status: Never used Tobacco e-Cigarette/Vaping Use: Never Used Second Hand Smoke Exposure: No Use of substances other than those prescribed or required for medical reasons: No Have you been hit, kicked, punched, or otherwise hurt by someone within the past year? If so, by whom?: No Are you DNR?: No Advance Directives: No Advance Directives Information Provided: Yes Advance Directives on File: No Patient : No : No service: No Current occupational status: disabled Cognitive needs: No Hearing needs: No Vision needs: No Meds Allergies Allergy/AdvReac Type Severity Reaction Status Date / Time No Known Allergies Allergy Verified 11/07/24 10:30 Home Medications ?Medication ?Instructions ?Recorded ?Confirmed ?Last Taken ?Type sertraline 100 mg tablet 100 mg PO BEDTIME 10/18/23 11/15/24 Unknown History clonazepam 0.5 mg tablet 0.5 mg PO Q6H PRN Anxiety 11/15/24 11/15/24 Unknown History famotidine 20 mg tablet 20 mg PO DAILY GERD 11/15/24 11/15/24 11/22/24 History metformin 500 mg tablet,extended 500 mg PO QPM 11/15/24 11/15/24 Unknown History release 24 hr miconazole nitrate 2 % vaginal 1 appful vaginal BEDTIME PRN 11/15/24 11/15/24 Unknown History cream (Miconazole-7) Outbreak sennosides 8.6 mg-docusate sodium 2 tab-cap PO BEDTIME PRN 11/15/24 11/15/24 Unknown History 50 mg tablet Constipation sucralfate 100 mg/mL oral 10 ml PO BID PRN Acid Reflux 11/15/24 11/15/24 Unknown History suspension (Carafate) Exam Exam Date and Time: 11/22/24 0900 Height,Weight and Vital Signs: Height 5 ft 6 in Weight 75.296 kg Last Vital Signs Pulse 64 11/15/24 11:49 Resp 18 11/15/24 11:49 BP 114/60 11/15/24 11:49 Pulse Ox 99 11/15/24 11:49 O2 Del Method Room Air 11/15/24 11:49 Vital Signs Pulse Rate 64 11/15/24 11:49 Respiratory Rate 18 11/15/24 11:49 Blood Pressure 114/60 11/15/24 11:49 Pulse Oximetry 99 11/15/24 11:49 Oxygen Delivery Method Room Air 11/15/24 11:49 Temperature 97.5 F 11/22/24 07:36 Pulse Rate 67 11/22/24 07:36 Respiratory Rate 16 11/22/24 07:36 Blood Pressure 106/84 11/22/24 07:36 Pulse Oximetry 97 11/22/24 07:36 Oxygen Delivery Method Room Air 11/22/24 07:36 Airway Mallampati Class: II TM Dist: >3cm Neck ROM: Full Loose/Missing/Broken Teeth: No (patient denies any loose or broken teeth) Heart: S1S2 Assessment and Plan Assessment Anesthesia Assessment: Anesthesia Plan Discussed and Chart Reviewed Final Anesthetic Review Family History of Problems with Anesthesia: No History of Problems with Anesthesia: No NPO: Yes ASA Class: II Final Preanesthetic Review: No Changes in Pt Med Stat, Meds/Allgs Chart Reviewed, Consent Obtained/Reviewed and Anes Risks/Benef Reviewed Patient Risk: Low Procedure Risk: Intermediate Anesthetic Plan Anesthetic Plan: GA and Agree w/ Assess. and Plan Disposition: Standard PACU
--- NOTE | 2024-11-22 09:04 | MHC.SHP ---
Pre-Procedural Eval Section A - 24 Hr Update-Section A only Date of Service: 11/22/24 The patient is an INPATIENT: No Section B - Complete if H&P > 30 days Chief Complaint: Radiculopathy, lumbar region Allergies: Allergies Allergy/AdvReac Type Severity Reaction Status Date / Time No Known Allergies Allergy Verified 11/07/24 10:30 Review of Systems Sugical H&P ROS: Negative: Constitution, Cardiovascular, Respiratory, Neurological, Psychiatric, Hem-Onc, Allergic/Immunologic, Gastrointestinal, Genitourinary, Musculoskeletal, Integumentary, Endocrine and Eyes/Ears/Nose/Throat Exam Surgical H&P Exam: Normal: HEENT, Normal: Heart, Normal: Lungs, Normal: Extremities, Normal: Abdomen, Normal: Skin and Normal: Neurological (Awake, alert) Plan Diagnosis/Plan: Unchanged I have reviewed the history and physical and performed a pertinent physical examination on my patient. No changes have occurred unless specified. Left L4-5 decompression Time Spent With Patient Time: Total time managing care of this patient today __5__ minutes.
[2024-11-22] MEDS: Acetaminophen 1,000 MG/100 ML PIGGYBACK 400 MG IV (10:30)
[2024-11-22] MEDS: ceFAZolin Sodium/Dextrose,Iso 2 GM/50 ML PIGGYBACK IV (10:30)
--- NOTE | 2024-11-22 10:36 | P.DS_ITS ---
DS: Providers Provider Date of Service: 11/22/24 Date of discharge: 11/22/24 Primary care physician: Bill Disla PA-C Admitting clinician: Dayne Redman DS: Diagnosis Discharge Diagnosis (1) Lumbar radiculopathy: Status: Acute DS: Summary Time Attestation Discharge Coordination Time (in mins): 5 Quality: Safe Use of Opioids Does Pt have an Active Cancer Diagnosis on the Problem List?: No Quality: Stroke Does the patient have a stroke diagnosis?: No Physical Exam Vital Signs: Vital Signs: Last Vital Signs Temp 97.5 F 11/22/24 07:36 Pulse 67 11/22/24 07:36 Resp 16 11/22/24 07:36 BP 106/84 11/22/24 07:36 Pulse Ox 97 11/22/24 07:36 O2 Del Method Room Air 11/22/24 07:36 BMI result Body Mass Index 26.8 DS: Data Data Completed and Pending Labs on day of discharge: Laboratory Results - last 24 hr 11/22/24 07:41 POC Glucose 109 Discharge Plan Discharge Patient Disposition: Home, Self-Care Referrals: Bill Disla PA-C [Primary Care Provider] - 1 Week Discharge Medications: New docusate sodium [Colace] 100 mg capsule 100 mg PO BID Qty: 20 0RF oxycodone 5 mg tablet 5 mg PO Q4H PRN (Reason: pain) Qty: 20 0RF Rx Instructions: Partial Fill upon patient request. Continued (DME) blood-glucose meter [OneTouch Verio Flex Start] Kit See Rx Instructions .Route Qty: 1 0RF Rx Instructions: As directed dapagliflozin propanediol [Farxiga] 10 mg tablet 10 mg PO DAILY 90 Days Qty: 90 3RF (DME) Accu-Chek Guide test strips Strip See Rx Instructions .ROUTE .COMPLEX Qty: 100 11RF Dose Instruction: HACER PRUEBA DE AZUCAR EN LISBET HASTA TON VECES AL ALECIA ALEX INDICADO Rx Instructions: HACER PRUEBA DE AZUCAR EN LISBET HASTA TON VECES AL ALECIA ALEX INDICADO sucralfate [Carafate] 100 mg/mL suspension 10 ml PO BID PRN (Reason: Acid Reflux) Rx Instructions: swish in mouth and swallow; use after food/drink clonazepam 0.5 mg tablet 0.5 mg PO Q6H PRN (Reason: Anxiety) sennosides-docusate sodium 8.6-50 mg tablet 2 tab-cap PO BEDTIME PRN (Reason: Constipation) Rx Instructions: Please take every other day at bedtime miconazole nitrate [Miconazole-7] 2 % cream 1 appful vaginal BEDTIME PRN (Reason: Outbreak) Rx Instructions: Use when needed for vaginal itching/yeast infection. famotidine 20 mg tablet 20 mg PO DAILY Rx Instructions: Take one tablet daily as needed for acid reflux metformin 500 mg tablet extended release 24 hr 500 mg PO QPM atorvastatin 40 mg tablet 40 mg PO DAILY Qty: 90 3RF Trulicity 0.75 mg/0.5 mL pen injector 0.75 mg subcut QWEEK 90 Days Qty: 6.5 11RF Patient Comments: every Tuesday gabapentin 300 mg capsule 300 mg PO TID 90 Days Qty: 270 1RF (DME) pen needle, diabetic [BD Ultra-Fine Alvina Pen Needle] 32 gauge x 5/32 needle See Rx Instructions .ROUTE .MEDSUPPLY Qty: 50 3RF Rx Instructions: TID USE sertraline 100 mg tablet 100 mg PO BEDTIME Discharge Orders: Discharge Order (Routine); Ordered 11/22/24 Ordered By: Montana Ragland Diet: Advance to usual diet Activity on Discharge: As tolerated Activity Restrictions/Additional Instructions: After your spinal surgery we ask you to observe the following restrictions/guidelines: Activity: It is normal to feel some discomfort as you increase your activity, but that will improve with time. We ask you avoid heavy lifting or acitivities that cause pain. As a general rule, 8lbs is a safe limit for lifting right after surgery. Walk as much as you feel comfortable but not to exhaustion. You will feel extra tired the first few days after surgery. Stay well hydrated. It is OK to walk up and down stairs You may return to driving when you are off narcotics (such as vicodin, oxycodone, dilaudid, etc), and you are back to normal functional capacity. If you have any concerns please check with office before driving. Return to work is specific to each patient and each surgery, so please speak with your doctor/PA at first follow up. Please bring paperwork such as FMLA at that time if you need it filled out. Medications: For optimum pain control, it is best to start with a combination of 500 mg of Tylenol every 4 hours with 600 mg of Motrin every 8 hours, and use narcotics as needed in between for breakthrough pain. We will give you a short supply of narcotics after surgery (usually one weeks worth). If you need more please call the office but do not use more than prescribed. You will need to give our office 48 hours notice if you need narcotics refilled and we do not fill narcotics on weekends or evenings. If you are on a narcotic, it is a good idea to take a stool softener such as colace or senna to avoid constipation If you take blood thinner such as aspirin, Plavix, Coumadin, Effient, Eliquis etc for conditions such as Afib, DVT, Pulmonary embolus, coronary disease, stents etc please speak with your surgeon about specific details as to when you can resume these medications. You can resume NSAIDs on post op day 1 (eg: Motrin, Naproxen, etc). Follow up: Please call the office, , after surgery to arrange a 3 week follow up for wound check. Wound Care: You may remove your dressing on the first day after surgery. ?You may ?leave open to air. Please do not remove the steri strips underneath. they will fall off on their own in one week. IT IS NORMAL FOR THE WOUND TO OOZE OR BE BLOODY FOR A FEW DAYS AFTER SURGERY. ?IF THIS HAPPENS JUST PLACE NEW DRESSING OVER IT TO AVOID STAINING CLOTHES. You may shower on post op day # 1 We ask that you do not let the water soak the wound. If it does get wet, just towel dry lightly. Please do not scrub your incision or place any type of chemical/ointment on the wound. No tub baths, pools or jacuzzis for one month. If you have any leaking or redness from your wound, or fevers, please call office Print Language: Guamanian
--- NOTE | 2024-11-22 11:33 | W.PM.OPN ---
Operative Note Operative Note Date of Service: 11/22/24 Narrative: Preoperative Diagnosis: L4-5 spinal stenosis/lateral recess stenosis/neural foraminal stenosis Operation: Left L4-5 Laminotomy, Partial facetectomy and foraminotomy with use of microscope Consent Informed Consent was obtained for this operation. I have explained the nature, purpose and benefits of the operation. I have discussed the risks and benefit of the operation including possible complications or adverse events with patient/family. Alternative(s) were discussed with the patient with their relative benefits and risks as well as the consequences of not accepting the operation were included in obtaining consent. Surgeon: ISAC SOTELO MD, PHD Procedure Assisted By: Montana Cheatham Description of Procedure This patient is suffering from predominantly left leg pain. MRI shows moderate L4-5 spinal stenosis and lateral recess stenosis. The patient was offered a decompression. The procedure complications were explained. The patient was consented. The patient was brought to the operating room and endotracheally intubated. The patient was turned in prone position on the Chaparro frame. Prep and drape was done followed by timeout. The Physician purchasing assistant provided access. A mid lumbar incision was made followed by release of the paravertebral muscle on the left side to expose the L4-5 lamina and facet joints. An intraoperative x-ray was obtained to confirm the correct level. The microscope was brought in. I took over the procedure. The high-speed drill was used to do a L4-5 laminotomy until flavum ligament was reached. A #2 Kerrison was used to expand the laminotomy near flush to the pedicles and to include a partial facetectomy. The flavum ligament was opened and resected with a #3 Kerrison to decompress the underlying thecal sac. The flavum ligament was removed to decompress the lateral recess and the exiting L5 nerve root. A long nerve hook could be easily passed along the medial side of the pedicle as a sign of adequate decompression. The microscope was removed. Hemostasis was done. The physician purchasing assistant close the Incision in 2 layers. Steri-Strips were used to approximate incision. An OpSite with Tegaderm was used to cover the incision. All sponge needle counts were correct. Patient was extubated and transported in stable is to recovery room. Anesthesia: General Estimated Blood Loss (ml): 15 Complications: None Duration of Surgery: Under 60 Minutes Postoperative Plan: Discharge to home
[2024-11-22] MEDS: Haloperidol Lactate 5 MG/ML VIAL 1 MG IVPUSH (13:12)
== END 2024-11-22 14:21 | disposition home or self-care (01) ==
PROVIDERS: PCP Physician Assistant; Visit Provider Neurological Surgery
PROC: (CPT 63030; principal; 2024-11-22 09:30)
DX: M48.061 Spinal stenosis, lumbar region without neurogenic claudication (principal); G89.29 Other chronic pain; M79.605 Pain in left leg; E11.9 Type 2 diabetes mellitus without complications; G62.9 Polyneuropathy, unspecified; K21.9 Gastro-esophageal reflux disease without esophagitis; E78.00 Pure hypercholesterolemia, unspecified; F41.1 Generalized anxiety disorder; F32.A Depression, unspecified; Z79.85 Long-term (current) use of injectable non-insulin antidiabetic drugs; Z79.84 Long term (current) use of oral hypoglycemic drugs; Z79.899 Other long term (current) drug therapy
CPT/HCPCS: 63030; 82947; J0131; J0690; J1100; J1630; J1885; J2250; J2405; J2704; J2710; J3010

== ENCOUNTER → 2024-11-22 06:58 | Outpatient (BNV) | payer MEDICARE, MEDICAID, SELFPAY | PROVIDERS: PCP Physician Assistant; Visit Provider Neurological Surgery | DX: M48.062 Spinal stenosis, lumbar region with neurogenic claudication (principal) | CPT/HCPCS: 63030; 99499 ==

== ENCOUNTER 2024-12-13 10:42 | Outpatient (AMB) | payer MEDICARE, MEDICAID, SELFPAY ==
--- NOTE | 2024-12-13 10:44 | HO.SPINEOV ---
Intake Visit Reasons: 1st post op Intake Note: Ms. Laith Zhou is here for her 1st post op appointment. Cyber Incident Analyst Required: Yes Cyber Incident Analyst Services: Cyber Incident Analyst Present Cyber Incident Analyst Name: Flor Linares LM Allergies No Known Allergies Allergy (Verified 12/13/24 10:53) Assessment & Plan Assessment & Plan (1) Lumbar radiculopathy: Code(s): M54.16 - Radiculopathy, lumbar region Category: Medical Plan Operation: Left L4-5 Laminotomy, Partial facetectomy and foraminotomy Gabby is a pleasant 54-year-old female who comes in today for her 1st postoperative visit after having left-sided L4-[address] Redman. Thankfully, she reports complete resolution of her left leg pain since the surgery. She is very satisfied with the surgery in his happy that she underwent the procedure. She does report that she has a little bit of straining type feeling in her right lateral thigh, but feels this may be due to compensation related issue when walking after surgery. She asked several questions regarding the postoperative healing course, and raised concerns about being able to go on a cruise next month, which I do not believe she should have any issues doing. No new neurological deficits. The patient ambulates well and rises from a seated position without difficulty. Her posterior incision site is closed and well healing with some notable scabbing around the area. I would like to follow up with Gabby again in 6 weeks to evaluate for continued progress healing. Davonte Redman MD,PhD [facility] Coding Level of Care Code Global (74083) Diagnoses Lumbar radiculopathy M54.16
--- OUTSIDE RECORDS SUMMARY | 2024-12-13 11:24 | XMS_ITS | Clinical Summary ---
Author Organization [facility] Address [address] [place] [address] Care Team Providers Care Water Resources Business Segment Leader Name Role Phone Unavailable Primary Care Provider [...] Description 05/15/2025 1:00 PM EDT Office Visit [facility] [address] [place] [address] ZamoranoLuis Eduardosa Health Maintenance Due Date Last Done Comments CT Colonography 1972 Colonoscopy 1972 Colorectal Cancer Screening 1972 Depression Screening 1972 FIT DNA/Cologuard 1972 FIT 1972 FOBT 1972 HIV Screening 1972 Lipid Panel 1972 SDOH Screening 1972 Sigmoidoscopy 1972 Disability Screening 1972 Diabetes: Foot Exam 1982 Eye Exam 1982 Alcohol/Substance Use Screening 1984 Family Planning (PISQ) 09/28/1987 Hepatitis C Screening 1990 DTaP/Tdap/Td Vaccines (1 - Tdap) 09/28/1991 Hepatitis B Vaccines (1 of 3 - 19+ 3-dose series) 09/28/1991 Pneumococcal Vaccine: 50+ Years (1 of 2 - PCV) 09/28/1991 Pap Smear 1993 Cervical Cancer Screening 2002 HPV/Cotest 2002 Diabetes: Hemoglobin A1C 04/28/2022 01/26/2022 Diabetes: Urine Protein Screening 11/17/2022 11/17/2021 Mammogram [...] patient's age to complete this topic Meningococcal B Vaccine Aged Out No l onger eligible based on patient's age to complete [...] Most Recently Relevant to Health Maintenance Insurance DENTAL-[facility] MEDICAID STAND ADULT [place] [address]
== END 2024-12-13 11:05 | disposition home or self-care (01) ==
LOC: HO.HNS 10:42
PROVIDERS: PCP Physician Assistant; Visit Provider Physician Assistant
DX: M54.16 Radiculopathy, lumbar region (principal)
CPT/HCPCS: 99024

== ENCOUNTER → 2024-12-13 10:42 | Outpatient (BNVA) | payer MEDICARE, MEDICAID, SELFPAY | PROVIDERS: PCP Physician Assistant; Visit Provider Physician Assistant | DX: Z47.89 Encounter for other orthopedic aftercare (principal); Z98.890 Other specified postprocedural states | CPT/HCPCS: 99212 ==

== ENCOUNTER 2024-12-28 10:26 | Outpatient (REF) | payer MEDICARE, MEDICAID, SELFPAY ==
--- OUTSIDE RECORDS SUMMARY | 2024-12-28 11:14 | XMS_ITS | Clinical Summary ---
Author Organization [facility] Address [address] [place] [address] Care Team Providers Care Housekeeping/Laundry Supervisor Name Role Phone Unavailable Primary Care Provider [...] 05/15/2025 1:00 PM EDT Office Visit [facility] [address] [place] [address] ZamoranoLuis Eduardosa Health Maintenance Due Date Last [...] Most Recently Relevant to Health Maintenance Insurance [facility] MEDICAID STAND [place] [id number]
== END 2024-12-28 10:27 | disposition home or self-care (01) ==
LOC: HO.MAMMO 10:26
PROVIDERS: PCP Physician Assistant; Visit Provider Physician Assistant
DX: Z12.31 Encounter for screening mammogram for malignant neoplasm of breast (principal)
CPT/HCPCS: 77063; 77067

== ENCOUNTER → 2024-12-28 12:15 | Outpatient (BNV) | payer MEDICARE, MEDICAID, SELFPAY | PROVIDERS: PCP Physician Assistant; Visit Provider Internal Medicine | DX: Z12.31 Encounter for screening mammogram for malignant neoplasm of breast (principal) | CPT/HCPCS: 77063; 77067 ==

== ENCOUNTER 2025-01-24 10:47 | Outpatient (AMB) | payer MEDICARE, MEDICAID, SELFPAY ==
--- NOTE | 2025-01-24 11:08 | A.SPINEOV_ITS ---
Intake Visit Reasons: 2nd post op Intake Note: Ms. Laith Zhou is here today for her 2nd post op. Experience Designer Required: Yes Experience Designer Services: Experience Designer Present Experience Designer Name: Flor Linares LM Allergies No Known Allergies Allergy (Verified 01/24/25 11:09) Assessment & Plan Assessment & Plan (1) Lumbar radiculopathy: Code(s): M54.16 - Radiculopathy, lumbar region Category: Medical Plan Operation: Left L4-5 Laminotomy, Partial facetectomy and foraminotomy Gabby arriaga a pleasant 54-year-old female comes in today for her 2nd postoperative appointment after having a left-sided L4-[address] Redman about 2 months ago. She reports complete resolution of her leg pain since the surgery, and states that she is very satisfied overall with her surgery. She is having no issues at home ambulating up and down stairs or completing basic activities of daily living. No new neurological deficits. The patient ambulates well without any assistive devices. Her posterior incision site is closed and well healed. There is no need for continued routine follow up with the patient, she may follow up on as-needed basis in the future. Davonte Redman MD,PhD [facility] Coding Level of Care Code Global (03184) Diagnoses Lumbar radiculopathy M54.16
--- OUTSIDE RECORDS SUMMARY | 2025-01-24 11:36 | XMS_ITS | Clinical Summary ---
Author Organization [facility] Address [address] [place] [address] Care Team Providers Care Elevator Constructor Name Role Phone Unavailable Primary Care Provider [...] Description 05/15/2025 1:00 PM EDT Office Visit [facility] [address] [place] [address] ZamoranoLuis Eduardosa Health Maintenance Due Date Last Done Comments CT Colonography 1972 Colonoscopy 1972 Colorectal Cancer Screening 1972 Depression Screening 1972 Diabetes: Hemoglobin A1C 1972 FIT DNA/Cologuard 1972 FIT 1972 FOBT 1972 Lipid Panel 1972 SDOH Screening 1972 [...] older (1 - 1-dose 75+ series) 09/28/2047 HIV Screening Completed 11/17/2021 Zoster Vaccines Completed 12/25/2022, 10/28/2022 Influenza Vaccine [...]
== END 2025-01-24 11:18 | disposition home or self-care (01) ==
LOC: HO.HNS 10:48
PROVIDERS: PCP Physician Assistant; Visit Provider Physician Assistant
DX: M54.16 Radiculopathy, lumbar region (principal)
CPT/HCPCS: 99024

== ENCOUNTER → 2025-01-24 10:47 | Outpatient (BNVA) | payer MEDICARE, MEDICAID, SELFPAY | PROVIDERS: PCP Physician Assistant; Visit Provider Physician Assistant | DX: M54.16 Radiculopathy, lumbar region (principal) | CPT/HCPCS: 99212 ==

== ENCOUNTER 2025-02-05 09:42 | Outpatient (REF) | payer MEDICARE, MEDICAID, SELFPAY ==
--- NOTE | ~2025-02-05 | US_ITS ---
CLINICAL HISTORY: N20.0 - Calculus of kidney US renal Comparison: 03/08/2024 Findings: Right kidney 9.8 cm length. No significant focal abnormality. Left kidney 10.3 cm length. No significant focal abnormality. No bilateral hydronephrosis. Normal bilateral renal echogenicity. Impression: No significant abnormalities. This document has been electronically signed by: Nando Solomon MD on 02/05/2025 21:31:14
--- OUTSIDE RECORDS SUMMARY | 2025-02-05 10:24 | XMS_ITS | Clinical Summary ---
Author Organization [facility] Address [address] [place] [address] Care Team Providers Care Sexual Abuse Counsellor Name Role Phone Unavailable Primary Care Provider [...] Description 05/15/2025 1:00 PM EDT Office Visit [facility] [address] [place] [address] Holly Zamorano Health Maintenance Due Date Last [...] 05/04/2024, 08/16/2023 Dental Prophylaxis 11/03/2024 05/04/2024, 08/16/2023 Influenza Vaccine (#1) 2025 4, 05/03/2023, 05/28/2022, Additional history exists Tobacco Screening 05/04/2025 05/04/2024 Dental X-Ray: Full Mouth 08/17/2026 08/16/2023 RSV Patients and Patients Aged 60 years or older (1 - 1-dose 75+ series) 09/28/2047 HIV Screening Completed 11/17/2021 Zoster Vaccines Completed 12/25/2022, 10/28/2022 HIB Vaccines Aged Out No longer eligi [...] Most Recently Relevant to Health Maintenance Insurance [facility] MEDICAID STAND ADULT DENTAL - [employer]
== END 2025-02-05 09:43 | disposition home or self-care (01) ==
LOC: HO.US 09:42
PROVIDERS: PCP Physician Assistant; Visit Provider Nurse Practitioner Family
DX: N20.0 Calculus of kidney (principal)
CPT/HCPCS: 76775

== ENCOUNTER → 2025-02-05 09:43 | Outpatient (BNV) | payer MEDICARE, MEDICAID, SELFPAY | PROVIDERS: PCP Physician Assistant; Visit Provider Radiology Diagnostic Radiology | DX: N20.0 Calculus of kidney (principal) | CPT/HCPCS: 76775 ==

== ENCOUNTER 2025-03-08 11:46 | Outpatient (AMB) | payer MEDICARE, MEDICAID, SELFPAY ==
[2025-03-08 12:10] VITALS: BP 109/67; PULSE 69; BMI 27.3
--- NOTE | 2025-03-08 12:10 | A.OFFVIS_ITS ---
Vital Signs 03/08/25 12:10 Height 5 ft 6 in Weight 169 lb BMI 27.3 BP 109/67 Blood Pressure Location Lt brachial Position Sitting Pulse 69 Intake Visit Reasons: follow up GERD/constipation Intake Note: Patient follow up for Chronic constipation and no stool results Patient cc: Patient continues to c/o constipation. Denies other GI symptoms Die Designer Apprentice Required: Yes Die Designer Apprentice Name: German [id number] Accompanied by: Self / Same As Patient Allergies No Known Allergies Allergy (Verified 03/08/25 12:20) Medication List - Last Reconciled 03/08/25 by Aminta Alegre CNP atorvastatin 40 mg PO DAILY blood sugar diagnostic (Accu-Chek Guide test strips) HACER PRUEBA DE AZUCAR EN LISBET HASTA TON VECES AL ALECIA ALEX INDICADO blood-glucose meter (OneTouch Verio Flex Start kit) As directed clonazepam 0.5 mg PO Q6H PRN clonidine HCl mg PO dapagliflozin propanediol (Farxiga) 10 mg PO DAILY 90 days dulaglutide (Trulicity) 0.75 mg (0.5 mL) subcut QWEEK 90 days famotidine 20 mg PO DAILY gabapentin 300 mg PO TID 90 days metformin ER 500 mg PO QPM miconazole nitrate 2% (Miconazole-7) 1 appful vaginal BEDTIME PRN oxycodone 5 mg PO Q4H PRN pantoprazole 40 mg PO DAILY PRN pen needle, diabetic (BD Ultra-Fine Alvina Pen Needle) TID USE scopolamine base 1 patch transdermal Q3D PRN sennosides-docusate sodium 8.6-50 mg 2 tab-caps PO BEDTIME PRN sertraline 100 mg PO BEDTIME sucralfate (Carafate) 10 mL PO BID PRN HPI HPI follow up GERD/constipation: Details: Patient is a 54-year-old female with PMH of and GERD, depression, DMII, chronic back pain and GERD. Constipation: The patient continues to constipated, characterized by passage of hard, segmented stools consistent with types 1 or 2 on the [place] Stool Chart. Current regimen includes daily laxatives and stool softeners, with some episodes of loose stools following normal stools. Symptoms occur without abdominal pain, nausea, or vomiting. At this time, MiraLax has not been incorporated into her treatment plan. Gastroesophageal Reflux Disease (GERD): Patient reports GERD management is successful with famotidine. Previously, pantoprazole was utilized but she is no longer taking. Hemorrhoids: Reports external hemorrhoids without current exacerbation or discomfort; no treatment has been sought or applied for these symptoms. Internal hemorrhoids were identified in a 2023 colonoscopy. She denies nausea/vomiting, abdominal pain or melena/hematochezia. [facility] Medical History Lumbar spinal stenosis Lumbar disc herniation Chronic back pain Hypercholesteremia Depression Generalized anxiety disorder Peripheral neuropathy Nephrolithiasis Type 2 diabetes mellitus GERD (gastroesophageal reflux disease) Surgical History Hx of lithotripsy History of esophagogastroduodenoscopy (EGD) Hx of colonoscopy History of cholecystectomy Family History Mother Diabetes Hypertension Father Diabetes Hypertension Prostate cancer Social History Housing: House Are you a primary healthcare associate to a significant other at home: No Do you presently have visiting nurse or other home services: No Alcohol intake: never Patient Tobacco Use Status: Never used Tobacco e-Cigarette/Vaping Use: Never Used Second Hand Smoke Exposure: No service: No Current occupational status: disabled Cognitive needs: No Hearing needs: No Vision needs: No Female Reproductive History Menstrual Age of Menarche: 14 Review of Systems Const Reports as per HPI ENT Reports as per HPI Card Reports as per HPI Resp Reports as per HPI GI Reports as per HPI Reports as per HPI Physical Exam Vital Signs: Last Vital Signs Pulse 69 03/08/25 12:10 BP 109/67 03/08/25 12:10 BMI result Body Mass Index 27.3 Const General: healthy appearing, no acute distress and well developed Nutritional Appearance: average body habitus Orientation/consciousness: patient oriented x3 HEENT Head: Yes normal to inspection, Yes normocephalic and Yes atraumatic Face and sinus: Yes normal facial exam Eyes General: appearance normal, both eyes and all related structures Neck Neck: Yes normal visual inspection Resp Effort & Inspection: normal respiratory effort, able to speak in complete sentences, no tracheal deviation and symmetric chest movement Cardio Jugular venous distension: no JVD Heart sounds: Murmur heart sound present GI Inspection: Yes normal to inspection and No distended Palpation (GI): Soft to palpation, not firm, nontender, no guarding, hepatosplenomegaly present and Other GI palpation findings present (examine limited by compression garment ) Auscultation: normoactive bowel sounds Rectal Exam - Female: visual inspection normal, normal sphincter tone, No External hemorrhoid(s) present, No Internal hemorrhoid(s) present, No Rectal prolapse, No fecal impaction, No Lesions present (GI), No Anal fissure(s) present, No Fistula present (GI), No Laceration(s) present (GI), No Excoriation present (GI), No mass and No tenderness Neuro General: patient oriented x3 Gait exam (Neuro): Normal gait present Psych Appearance: grossly normal Mental Status: mental status grossly normal Speech and movement: Normal speech and movement present Affect: normal affect Attitude: cooperative Thought process: Normal thought process present Thought content: Normal thought content present Insight: Good insight present (Psych) Judgement: Good judgement present (Psych) Assessment & Plan Assessment & Plan (1) GERD (gastroesophageal reflux disease): Code(s): K21.9 - Gastro-esophageal reflux disease without esophagitis Category: Medical Qualifiers: Esophagitis presence: without esophagitis Qualified Code(s): K21.9 - Gastro-esophageal reflux disease without esophagitis Plan: Symptoms persist despite current use of a laxative and stool softener, without alarm features and reassuring ab and rectal exam Medication management: -Start using MiraLax daily -continue senna plus two tablet HS Reinforced lifestyle modifications to promote regularity: -higher fiber diet, examples provided -adequate hydration with water -150 minutes of moderate intensity exercise per week (2) Chronic constipation: Code(s): K59.09 - Other constipation Category: Medical Plan: Symptoms well-controlled with famotidine Medication management: -continue famotidine as prescribed -pantoprazole to be used as needed Education on GERD prevention : -Advised against heavy meals; encouraged small, frequent meals instead of large ones. - Instructed to remain upright for 2?3 hours after eating. - Advised to avoid late-night meals, spicy foods, caffeine, alcohol, known dietary triggers, and tight-fitting clothing. - Emphasis placed on gradual implementation of lifestyle changes to improve adherence and symptom control. Plan Follow-up in 3 months or sooner as needed Time: I spent a total of 30 minutes on the date of encounter which includes: Preparing to see the patient (reviewed previous documentation, test results and medical history) Performing a medically appropriate exam and/or evaluation Ordering medications, tests, and procedures Documenting clinical information in the health record Medications: New famotidine Take one tablet daily as needed for acid reflux 20 mg PO DAILY 90 tabs 2RF GERD polyethylene glycol 3350 (Miralax) Take 17G (one cap full) daily with 8oz of water 17 grams PO DAILY 510 grams 2RF constipation 30 days Coding Level of Care Code Established Pt Est Pt Level 3 (59336) Patient Type Established Diagnoses Gastroesophageal reflux disease without esophagitis K21.9 Esophagitis presence: without esophagitis Chronic constipation K59.09
== END 2025-03-08 12:53 | disposition home or self-care (01) ==
LOC: HO.HGI 11:47
PROVIDERS: PCP Physician Assistant; Visit Provider Nurse Practitioner Family
DX: K21.9 Gastro-esophageal reflux disease without esophagitis (principal); K59.09 Other constipation
CPT/HCPCS: 99213

== ENCOUNTER → 2025-03-08 11:46 | Outpatient (BNVA) | payer MEDICARE, MEDICAID, SELFPAY | PROVIDERS: PCP Physician Assistant; Visit Provider Nurse Practitioner Family | DX: K21.9 Gastro-esophageal reflux disease without esophagitis (principal); K59.09 Other constipation; K64.9 Unspecified hemorrhoids | CPT/HCPCS: 99212 ==

== ENCOUNTER 2025-03-19 12:43 | Outpatient (AMB) | payer MEDICARE, MEDICAID, SELFPAY ==
--- OUTSIDE RECORDS SUMMARY | 2025-03-19 13:25 | XMS_ITS | Clinical Summary ---
Author Organization [facility] Address [address] [place] [address] Care Team Providers Care Manager Technical Training Name Role Phone Unavailable Primary Care Provider [...] Office Visit [facility] [address] [place] [address] Holly Zamorano Health Maintenance Due Date Last [...] Most Recently Relevant to Health Maintenance Insurance [facility] MEDICAID STAND ADULT DENTAL - [employer]ENTAL
--- NOTE | 2025-03-19 14:27 | HO.SPINEOV ---
Intake Visit Reasons: low back pain radiating to pain (right side) Intake Note: Ms. Laith Zhou is here today c/o low back pain that is radiating to the right side. Operational Intelligence Officer Required: Yes Operational Intelligence Officer Services: Operational Intelligence Officer Present Operational Intelligence Officer Name: Flor Linares LM Allergies No Known Allergies Allergy (Verified 03/08/25 12:20) Assessment & Plan Assessment & Plan (1) Lumbar radiculopathy: Code(s): M54.16 - Radiculopathy, lumbar region Category: Medical Plan HPI: Gabby is a pleasant 54 year old female who underwent Left L4-5 Laminotomy, Partial facetectomy and foraminotomy with Dr. Redman 11/22/24. She had excellent relief of her pain after the surgery. Unfortuantely about a week ago she began experiencing shooting pain down her right lower extremity starting in the low back traveling into the right posterior buttocks and down the right-sided lateral thigh terminating near the right knee. She states that in addition to the pain she has a vague pulling sensation associated with this on her lateral thigh. She denies any numbness / tingling / burning. She does state that the pain is so severe that it has been keeping her up all night for the past week, and significantly impacting her activities of daily living/meaningful activities. She has attempted to utilize [id number] Tylenol/ibuprofen however this has not been helpful at all. Exam: The patient is well-appearing, in no acute distress during this visit. She is able to rise from a seated position by bracing herself with a chair and gets up onto the examination table without much issue. She maintains 5/5 strength in her bilateral lower extremities. No significant sensational deficits to light touch of the lower extremities. (-) bilateral straight leg raise. Plan: Overall, the patient's pain sounds like it is fairly severe in nature, in matches a right-sided L5 dermatomal distribution. I believe she most likely has some kind of nerve impingement on the right-hand side. Given this, I would like to rule out musculoskeletal issues and have the patient sent for a course of physical therapy. If she continues to suffer from this right-sided radicular pain despite physical therapy I will consider ordering a lumbar MRI. She was encouraged to call the office and update us on her status after she completes physical therapy. Davonte Redman MD,PhD [facility] Orders: Orders PT Evaluation and Treatment Today M54.16 - Radiculopathy, lumbar region Coding Level of Care Code Est Pt Level 2 (33467) Diagnoses Lumbar radiculopathy M54.16
== END 2025-03-19 14:45 | disposition home or self-care (01) ==
LOC: HO.HNS 12:43
PROVIDERS: PCP Physician Assistant; Visit Provider Physician Assistant
DX: M54.16 Radiculopathy, lumbar region (principal)
CPT/HCPCS: 99212

== ENCOUNTER → 2025-03-19 12:43 | Outpatient (BNVA) | payer MEDICARE, MEDICAID, SELFPAY | PROVIDERS: PCP Physician Assistant; Visit Provider Physician Assistant | DX: M54.16 Radiculopathy, lumbar region (principal) | CPT/HCPCS: 99212 ==

== ENCOUNTER 2025-05-02 13:00 | Outpatient (AMB) | payer MEDICARE, MEDICAID, SELFPAY ==
--- NOTE | 2025-05-02 13:16 | MHC.PC.OV ---
Vital Signs 05/02/25 13:17 Height 5 ft 6 in Weight 166 lb 8 oz BMI 26.9 BP 132/62 Blood Pressure Location Lt brachial Position Sitting Pulse 64 Pulse Source Pulse Oximeter Temp 96.9 F Temp Source Temporal Artery Scan Pulse Oximetry (%) 98 Oxygen Delivery Method Room Air Intake Visit Reasons: Annual physical Intake Note: Patient is here today for a physical. Property Claims Manager Required: Yes Property Claims Manager Language: Fill Technician Name: Catrina ([phone]) Information Interpreted: non-clinical & clinical Eligibility Clerk: Not Required per policy Accompanied by: Self / Same As Patient Allergies No Known Allergies Allergy (Verified 05/02/25 13:37) Medication List - Last Reconciled 05/02/25 by Bill Disla PA-C atorvastatin 40 mg PO DAILY blood sugar diagnostic (Accu-Chek Guide test strips) HACER PRUEBA DE AZUCAR EN LISBET HASTA TON VECES AL ALECIA ALEX INDICADO blood-glucose meter (OneTouch Verio Flex Start kit) As directed clonazepam 0.5 mg PO Q6H PRN clonidine HCl mg PO dapagliflozin propanediol (Farxiga) 10 mg PO DAILY 90 days dulaglutide (Trulicity) 0.75 mg (0.5 mL) subcut QWEEK 90 days famotidine 20 mg PO DAILY gabapentin 300 mg PO TID 90 days metformin ER 500 mg PO QPM 90 days miconazole nitrate 2% (Miconazole-7) 1 appful vaginal BEDTIME PRN oxycodone 5 mg PO Q4H PRN pantoprazole 40 mg PO DAILY PRN pen needle, diabetic (BD Ultra-Fine Alvina Pen Needle) TID USE polyethylene glycol 3350 (Miralax) 17 grams PO DAILY 30 days scopolamine base 1 patch transdermal Q3D PRN sennosides-docusate sodium 8.6-50 mg 2 tab-caps PO BEDTIME PRN sertraline 100 mg PO BEDTIME sucralfate (Carafate) 10 mL PO BID PRN Tobacco use date assessed: 05/02/25 Dental Screening Dental Screen Date: 05/02/25 Did you have a dental visit in the last 12 months?: Yes Did you have a dental problem in the last 6 months where you did not have access to dental care?: No Was dental information given to patient?: Patient has dentist HPI Annual physical HPI Details Patient is a 54-year-old female here today for a routine annual physical Patient is Irish-speaking only thus need to use a neuropsychology service director today in office. Patient has a past medical history significant for type 2 diabetes, major depressive disorder, gastritis, chronic low back pain. Concern--> The patient reports experiencing headaches that start at the cervical region and radiate to the front of the head. These headaches have been occurring for about one to one and a half weeks. She denies any associated nasal congestion or allergies. Lumbar stenosis: Patient underwent lumbar spine surgery this past year which has helped her with her lower extremity radiculopathy pain. .. Type 2 diabetes: Her diabetes has been well controlled with current anti hyperglycemic/ insulin therapy. A1c today at 6.5. She has gained a bit of weight since her back surgery She is interested in losing more weight thus will increase her Trulicity to 1.5 mg weekly. Mammogram: Up-to-date with mammogram Colorectal cancer screening: UTD with colonoscopy Vaccines: Will get flu vaccine today, up-to-date with shingles vaccine, needs pneumonia and tetanus vaccines [facility] Medical History Lumbar spinal stenosis Lumbar disc herniation Chronic back pain Hypercholesteremia Depression Generalized anxiety disorder Peripheral neuropathy Nephrolithiasis Type 2 diabetes mellitus GERD (gastroesophageal reflux disease) Surgical History History of back surgery Hx of lithotripsy History of esophagogastroduodenoscopy (EGD) Hx of colonoscopy History of cholecystectomy Family History Mother Diabetes Hypertension Father Diabetes Hypertension Prostate cancer Social History Housing: House Are you a primary healthcare risk control consultant to a significant other at home: No Do you presently have visiting nurse or other home services: No Alcohol intake: never Patient Tobacco Use Status: Never used Tobacco e-Cigarette/Vaping Use: Never Used Second Hand Smoke Exposure: No service: No Current occupational status: disabled Cognitive needs: No Hearing needs: No Vision needs: No Female Reproductive History Menstrual Age of Menarche: 14 Questionnaire PHQ-9 Over the last 2 weeks, how often have you been bothered by any of the following problems? 1. Little interest or pleasure in doing things: several days 2. Feeling down, depressed, or hopeless: several days 3. Trouble falling or staying asleep, or sleeping too much: several days 4. Feeling tired or having little energy: several days 5. Poor appetite or overeating: several days 6. Feeling bad about yourself - or that you are a failure or have let yourself or your family down: several days 7. Trouble concentrating on things, such as reading the newspaper or watching television: several days 8. Moving or speaking so slowly that other people could have noticed. Or the opposite - being so fidgety or restless that you have been moving around a lot more than usual: several days 9. Thoughts that you would be better off or of hurting yourself in some way: not at all Total score: 8 Depression Screening Interpretation: Positive Depression Screening Follow-up: Existing condition Depression Screening Done: Yes 13305 - PHQ-9 Billing: Yes Source: Developed by Drs. Ricky Castillo, Mai Aguilar, Huey Castillo and colleagues, with an educational bryon from [employer]. Thrive Questionnaire Date Thrive assessed: 05/02/25 I am a: Patient What is your living situation today?: I have a steady place to live Within the past 12 months, did the food you bought not last and you didn't have the money to get more?: Never true Within the past 12 months, did you worry whether your food would run out before you got money to buy more?: Sometimes True Do you have trouble paying for medicines?: No Do you have trouble getting transportation to medical appointments?: Yes Do you have trouble paying your heating and electricity bill?: No Do you have trouble taking care of your child, family member or friend?: No Do you have trouble with day-to-day activities such as bathing, preparing meals, shopping, managing finances, etc.?: No Are you currently unemployed and looking for a job?: I choose not to answer this question Are you interested in more education?: I choose not to answer this question Please select the resources that you would like help with: None Currently or been in a relationship where the following occur: No concerns reported THRIVE Score: 2 AUDIT C Alcohol Use Questionnaire (AUDIT-C) 1. How often do you have a drink containing alcohol?: Never 3. How often do you have six or more drinks on one occasion?: Never Total Score: 0 JOSE MANUEL-7 AMB Questionnaire JOSE MANUEL-7 Date JOSE MANUEL - 7 assessed: 05/02/25 Feeling nervous, anxious, or on edge: 2 = More than half the days Not being able to stop or control worryin = More than half the days Worrying too much about different things: 2 = More than half the days Trouble relaxin = More than half the days Being so restless that it is hard to sit still: 1 = Several days Becoming easily annoyed or irritable: 1 = Several days Feeling afraid as if something awful might happen: 0 = Not at all Total JOSE MANUEL-7 score (0-4 normal; 5-9 mild; 10-14 moderate; 15-21 severe): 10 Source: Developed by Drs. Ricky Castillo, Mai Aguilar, Huey Castillo and colleagues, with an educational bryon from [employer]. JOSE MANUEL-7 Assessment Billing JOSE MANUEL-7 Assessment Tool: JOSE MANUEL-7 Assessment 19401 Review of Systems Const Denies body aches, Denies chills, Denies excessive sweating, Denies fatigue, Denies fever(s) and Denies headache(s) Eyes Denies blurry vision ENT Denies dysphagia, Denies vertigo, Denies dizziness, Denies headache(s), Denies hearing loss and Denies tinnitus Card Denies chest pain, Denies chest pain with activity, Denies syncope, Denies irregular heart rhythm and Denies dyspnea Resp Denies chest congestion, Denies cough, Denies hemoptysis, Denies dyspnea and Denies wheezing GI Denies abdominal pain, Denies melena, Denies hematochezia, Denies coffee ground emesis, Denies dysphagia, Denies diarrhea, Denies nausea and Denies vomiting Denies urinary frequency, Denies dysuria, Denies urinary hesitancy and Denies urinary urgency Musc Denies arthralgias, Denies limited range of motion, Denies muscle cramps and Denies muscle weakness Skin/Breast Denies rash and Denies skin ulcer Neuro Denies Abnormal speech present, Denies confusion, Denies vertigo, Denies dizziness, Denies syncope, Denies headache(s), Denies memory loss and Denies seizure-like activity Psych Denies anxiety, Denies confusion, Denies depression, Denies memory loss, Denies panic attacks and Denies paranoia Endo Denies excessive sweating, Denies fatigue, Denies flushing, Denies polydipsia and Denies polyuria Aller/Immun Denies wheezing Physical exam (Primary Care) Vital Signs: Last Vital Signs Temp 96.9 F 05/02/25 13:17 Pulse 64 05/02/25 13:17 BP 132/62 05/02/25 13:17 Pulse Ox 98 05/02/25 13:17 Oxygen Delivery Method Room Air 05/02/25 13:17 BMI result Body Mass Index 26.9 Tobacco/Smoking Status: Tobacco use Status Tobacco use date assessed 05/02/25 05/02/25 13:34 Patient Tobacco Use Status Never used Tobacco 05/02/25 13:34 e-Cigarette/Vaping Use Never Used 05/02/25 13:34 PHQ-9: PHQ-9 Score PHQ-9: Total score 8 05/02/25 13:38 Depression Screening Interpretation: Positive Depression Screening Follow-up: Existing condition Thrive Assessment: Date of Thrive Assessment Date Thrive assessed 05/02/25 05/02/25 13:34 Currently or been in a relationship where the following occur: No concerns reported Const General: cooperative, comfortable, no acute distress, alert and awake; No confusion Orientation/consciousness: oriented to person, oriented to place, patient oriented x3 and No confusion HENMT Head: Yes normocephalic Ears: external ears normal and TM's normal bilaterally Face and sinus: No sinus tenderness Mouth: Normal oral and palatal mucosa present and tongue normal Teeth and gingiva: dentition normal and gingiva normal Throat: Yes posterior oropharynx normal, Yes tonsils normal and Yes uvula midline Eyes Conjunctivae: conjunctivae normal Sclerae: sclerae normal Pupils: Equal, round and reactive pupils present EOM: EOMs intact bilaterally Direct Ophthalmoscopy: No no photophobia Neck Neck: Yes no lymphadenopathy, No tender and Yes no JVD Thyroid: Thyroid normal Carotids: no bruits Chest Chest palpation & inspection: no tenderness Resp Effort & Inspection: normal respiratory effort, no audible wheezes, not labored and no stridor Auscultation: no crackles, no rales, no rhonchi and no wheezes Cardio Jugular venous distension: no JVD Rate: regular rate, not bradycardic and not tachycardic Rhythm: regular rhythm Bruits: no carotid bruits Peripheral pulses: Peripheral pulses 2+ throughout GI Inspection: Yes normal to inspection, No abdominal wall ecchymosis and No visible herniation Palpation (GI): Soft to palpation, nontender, no guarding, not rigid and No hepatosplenomegaly present Auscultation: normoactive bowel sounds General: Yes no CVA tenderness Back/Spine/Pelvis Back: no CVA tenderness and No back tenderness Cervical Spine: cervical ROM normal Thoracic/Lumbar Spine: thoracic and lumbar spine normal to inspection, straight leg raise negative bilaterally, No thoraco-lumbar ROM limited and No lumbar spinal tenderness Skin Lesions: no lesions Rashes: no rashes Wounds: no wounds Neuro General: oriented to person, oriented to place, patient oriented x3, CN's II-XI intact bilaterally and No confusion Cranial nerves: Yes Equal, round and reactive pupils present and Yes Normal accommodation reflex present Cognition (Neuro): normal cognition Speech: No Abnormal speech present Gait exam (Neuro): Normal gait present Motor exam (neuro): 5/5 motor strength present throughout Extrem Right upper extremity: full ROM; no cyanosis Left upper extremity: full ROM; no cyanosis Right lower extremity: no edema Left lower extremity: no edema Psych Appearance: grossly normal Mental Status: mental status grossly normal Affect: normal affect Attitude: cooperative Thought process: Normal thought process present Office Procedures Flu Questionnaire Does the patient have a severe egg allergy?: No Does the patient have severe life threatening allergies?: No Does the patient have a fever or illness today?: No Has the patient ever had Guillain-[place] Syndrome?: No Has the patient ever had any past reaction to a flu shot?: No Results AMB Hemoglobin A1c AMB Hemoglobin A1c 6.5 % Last Edit by DEANNA Vilchis on 05/02/25 13:49 Immunizations Fluarix [id number] (PF) 45 mcg (15 mcg x 3)/0.5 mL IM syringe Performing Provider: Bill Disla PA-C [facility] [place] [facility] Administered by: DEANNA Martinez on 05/02/25 14:07 Dose Route Admin Location Dispensed Lot Number Expiration Date NDC [employer] Operator 0.5 mL IM Left Deltoid 0.5 mL [id number] 01/21/26 [id number] [email or web address] VIS Given Date VIS Provided VIS Publication Date 05/02/25 Single Vaccine 24 Eligibility Eligibility Date Funding Source Not [facility] Eligible 05/02/25 Private Results Reviewed Results Reviewed: Laboratory Last Values Hgb A1c (Clinic) 6.5 % (4.0-6.0) H 05/02/25 13:15 Coding Level of Care Code Est Pt Prev Care 40-64y(58960) Diagnoses Annual physical exam Z00.00 Acute nonintractable headache, unspecified headache type R51.9 Headache chronicity pattern: acute headache Headache type: unspecified Intractability: not intractable MDD (major depressive disorder), recurrent episode, moderate F33.1 Type 2 diabetes mellitus with hyperglycemia, with long-term current use of insulin E11.65; Z79.4 Diabetes mellitus complication status: with hyperglycemia 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 insulin use: with senior care use Gastroesophageal reflux disease without esophagitis K21.9 Esophagitis presence: without esophagitis Additional Codes JOSE MANUEL-7 Assessment Billing - JOSE MANUEL-7 Assessment Tool: JOSE MANUEL-7 Assessment 87510 ([id number]) PHQ-9 - 50749 - PHQ-9 Billing: Yes ([id number]) Assessment & Plan Assessment & Plan (1) Annual physical exam: Code(s): Z00.00 - Encounter for general adult medical examination without abnormal findings Category: Medical Plan: As per HPI (2) Headache: Code(s): R51.9 - Headache, unspecified Category: Medical Qualifiers: Headache chronicity pattern: acute headache Headache type: unspecified Intractability: not intractable Qualified Code(s): R51.9 - Headache, unspecified Plan: Patient reporting a 1 week onset of headaches starting from the back of her head and radiate into her frontal sinus regions. Could be weather related versus allergies. We did consider imaging though do not believe this is acute intracranial pathology here.. Will supply patient Fioricet to use on an as needed basis for her headaches. (3) MDD (major depressive disorder), recurrent episode, moderate: Code(s): F33.1 - Major depressive disorder, recurrent, moderate Category: Medical Plan: Patient's PHQ-9 score positive for depression which has been existing condition for her. She continues to see a mental health therapist and continues on mental health medications with the has been effective. 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 She is interested in increasing her Trulicity to 1.5 mg weekly to help her lose weight as well. Goal A1c is to remain below 7.0 (5) GERD (gastroesophageal reflux disease): Code(s): K21.9 - Gastro-esophageal reflux disease without esophagitis Category: Medical Qualifiers: Esophagitis presence: without esophagitis Qualified Code(s): K21.9 - Gastro-esophageal reflux disease without esophagitis Plan: Patient continues to follow gastroenterology. Her GERD symptoms are fairly well controlled with current PPI therapy Orders: Orders AMB Hemoglobin A1c Today E11.65 - Type 2 diabetes mellitus with hyperglycemia, Z13.9 - Encounter for screening, unspecified, Z79.4 - shelter (current) use of insulin Lipid Panel Today E78.00 - Pure hypercholesterolemia, unspecified Influenza [id number] Immunization Today Z23 - Encounter for immunization Complete Blood Count no Diff Today E11.65 - Type 2 diabetes mellitus with hyperglycemia, Z79.4 - shelter (current) use of insulin Comprehensive [place]. Panel Fast Today E11.65 - Type 2 diabetes mellitus with hyperglycemia, Z79.4 - ocean transportation intermediary (current) use of insulin Microalbumin, Random (w Creat) Today E11.65 - Type 2 diabetes mellitus with hyperglycemia, Z79.4 - shelter (current) use of insulin Medications: New oljjxxuavi-ixqtyzevrbtfi-zvtw 50-325-40 mg 1 cap PO TID 9 caps 0RF pain 3 days G43.909 - Migraine, unspecified, not intractable, without status migrainosus, R51.9 - Headache, unspecified dulaglutide (Trulicity) 1.5 mg (0.5 mL) subcut QWEEK 2 mL 2RF 4 weeks E11.65 - Type 2 diabetes mellitus with hyperglycemia, Z79.4 - shelter (current) use of insulin Changed From pantoprazole 40 mg PO DAILY PRN acid reflux K21.9 - Gastro-esophageal reflux disease without esophagitis To pantoprazole 40 mg PO DAILY 90 tabs 1RF acid reflux 90 days K21.9 - Gastro-esophageal reflux disease without esophagitis Refilled dapagliflozin propanediol (Farxiga) 10 mg PO DAILY 90 tabs 3RF 90 days E11.65 - Type 2 diabetes mellitus with hyperglycemia, Z79.4 - shelter (current) use of insulin scopolamine base 1 patch transdermal Q3D PRN 4 ea 0RF nausea and vomiting sucralfate (Carafate) swish in mouth and swallow; use after food/drink 10 mL PO BID PRN 600 mL 0RF Acid Reflux gabapentin 300 mg PO TID 270 caps 1RF 90 days M48.062 - Spinal stenosis, lumbar region with neurogenic claudication oxycodone Partial Fill upon patient request. 5 mg PO Q4H PRN 20 tabs 0RF pain On Hold dulaglutide (Trulicity) Hold Comment: Doctor's Order 0.75 mg (0.5 mL) subcut QWEEK 90 days 6.5 mL 11RF E11.65 - Type 2 diabetes mellitus with hyperglycemia, Z79.4 - shelter (current) use of insulin
[2025-05-02 13:17] VITALS: BP 132/62; PULSE 64; TEMP 36.1; O2SAT 98; BMI 26.9
== END 2025-05-02 16:43 | disposition home or self-care (01) ==
LOC: HO.HMCH 13:01
PROVIDERS: PCP Physician Assistant; Visit Provider Physician Assistant
DX: Z13.9 Encounter for screening, unspecified (principal); E11.65 Type 2 diabetes mellitus with hyperglycemia; Z79.4 Long term (current) use of insulin; Z23 Encounter for immunization

== ENCOUNTER → 2025-05-02 13:00 | Outpatient (BNVA) | payer MEDICARE, MEDICAID, SELFPAY | PROVIDERS: PCP Physician Assistant; Visit Provider Physician Assistant | DX: Z00.00 Encounter for general adult medical examination without abnormal findings (principal); M54.50 Low back pain, unspecified; G89.29 Other chronic pain; R51.9 Headache, unspecified; F33.1 Major depressive disorder, recurrent, moderate; E11.65 Type 2 diabetes mellitus with hyperglycemia; K21.9 Gastro-esophageal reflux disease without esophagitis; Z23 Encounter for immunization; Z79.4 Long term (current) use of insulin | CPT/HCPCS: 83036; 90471; 90656; 96127; 99396 ==

== ENCOUNTER 2025-05-31 12:04 | Outpatient (AMB) | payer MEDICARE, MEDICAID, SELFPAY ==
--- NOTE | 2025-05-31 12:17 | MHC.OFFVIS ---
Vital Signs 05/31/25 12:53 Height 5 ft 6 in Weight 163 lb BMI 26.3 BP 106/58 L Blood Pressure Location Rt brachial Position Sitting Pulse 62 Pulse Source Pulse Oximeter Pulse Oximetry (%) 99 Oxygen Delivery Method Room Air Intake Visit Reasons: 3m Intake Note: Patient 3 month follow up for Chronic constipation Patient cc: C.O. epigastric pain x2 weeks despite the current therapies. Pt confirms she is still taking all the current Rx as instructed, and had been experiencing relief from chronic sx up until this episode. Choir Leader Required: No Choir Leader Services: Choir Leader Present Choir Leader Name: [id number] Amadeo / [id number] Kendall. Accompanied by: Self / Same As Patient Allergies No Known Allergies Allergy (Verified 05/31/25 12:17) HPI HPI 3m: Details: Patient is a 54-year-old female with PMH of and GERD, depression, DMII, chronic back pain and GERD. F/u for GERD/reflux and chronic constipation management. Since last visit (Feb), pt resumed pantoprazole in addition to famotidine, noting overall improvement in reflux sx until 2 wks ago, when recurrent epigastric pain began. No dysphagia or regurgitation, but reports onset of stomach upset and increased borborygmi. Nausea correlates temporally with weekly GLP-1 (Trulicity) dosing; symptoms wax/wane in relation to injection. Constipation improved: reports daily BMs with sense of complete evacuation, no blood or loose stools. Continues daily Miralax, no taking laxative-stool softener tablet. No hospitalization or acute flares since previous visit. [facility] Medical History (Updated 05/31/25 @ 14:15 by Aminta Alegre CNP) Constipation Lumbar spinal stenosis Lumbar disc herniation Chronic back pain Hypercholesteremia Depression Generalized anxiety disorder Peripheral neuropathy Nephrolithiasis Type 2 diabetes mellitus GERD (gastroesophageal reflux disease) Surgical History History of back surgery Hx of lithotripsy History of esophagogastroduodenoscopy (EGD) Hx of colonoscopy History of cholecystectomy Family History Mother Diabetes Hypertension Father Diabetes Hypertension Prostate cancer Social History Housing: House Are you a primary professional healthcare representative to a significant other at home: No Do you presently have visiting nurse or other home services: No Alcohol intake: never Patient Tobacco Use Status: Never used Tobacco e-Cigarette/Vaping Use: Never Used Second Hand Smoke Exposure: No service: No Current occupational status: disabled Cognitive needs: No Hearing needs: No Vision needs: No Female Reproductive History Menstrual Age of Menarche: 14 Review of Systems Const Reports as per HPI ENT Reports as per HPI Card Reports as per HPI Resp Reports as per HPI GI Reports as per HPI Reports as per HPI Physical Exam Const General: healthy appearing, no acute distress and well developed Nutritional Appearance: average body habitus Orientation/consciousness: patient oriented x3 HEENT Head: Yes normal to inspection, Yes normocephalic and Yes atraumatic Face and sinus: Yes normal facial exam Eyes General: appearance normal, both eyes and all related structures Neck Neck: Yes normal visual inspection Resp Effort & Inspection: normal respiratory effort, able to speak in complete sentences, no tracheal deviation and symmetric chest movement Cardio Jugular venous distension: no JVD Neuro General: patient oriented x3 Gait exam (Neuro): Normal gait present Psych Appearance: grossly normal Mental Status: mental status grossly normal Speech and movement: Normal speech and movement present Affect: normal affect Attitude: cooperative Thought process: Normal thought process present Thought content: Normal thought content present Insight: Good insight present (Psych) Judgement: Good judgement present (Psych) Assessment & Plan Assessment & Plan (1) GERD (gastroesophageal reflux disease): Code(s): K21.9 - Gastro-esophageal reflux disease without esophagitis Category: Medical Qualifiers: Esophagitis presence: without esophagitis Qualified Code(s): K21.9 - Gastro-esophageal reflux disease without esophagitis Plan: Partially controlled, with recent 2-wk recurrence of epigastric pain/nausea. - Recurrence may correlate with med changes, shirley. GLP-1 agonist initiation/increased dose. Additional Testing: - Gastric emptying study ordered to assess delayed gastric emptying/gastroparesis. Medications: - Continue pantoprazole and famotidine as prescribed. - PRN antacids, avoid PPI/S-H2 overlap times. Lifestyle Recommendations: - Avoid dietary triggers known to exacerbate GERD (patient instructed). - Handouts provided on GERD-friendly diet (verbal). Referrals / Coordination: - Await gastric emptying scan scheduling. Follow-Up Plan: - RTC after completion of gastric emptying study or sooner if sx worsen. Review findings, reassess need for med adjustment. (2) Constipation: Code(s): K59.00 - Constipation, unspecified Category: Medical Qualifiers: Constipation type: unspecified constipation type Qualified Code(s): K59.00 - Constipation, unspecified Plan: Stable, improved BM pattern; daily stools, no hard/lumpy stools. - Less need for stimulant laxatives/softener combination tablet, so discontinued due to normalization of BM pattern. Additional Testing: - None at this time. Medications: - Continue Miralax PRN. - Discontinue tab laxative/stool softener combo. - Continue oral osmotic solution as needed for breakthrough constipation or stomach upset. Lifestyle Recommendations: - Maintain adequate hydration, fiber as tolerated. - Reinforce regular exercise and bowel routine. Referrals / Coordination: - None needed at present. Follow-Up Plan: - Monitor BM pattern, resume combination agent only if pattern worsens. (3) Type 2 diabetes mellitus: Code(s): E11.9 - Type 2 diabetes mellitus without complications Category: Medical Qualifiers: Diabetes mellitus mcc insulin use: with intermission coordinator use Diabetes mellitus complication status: with hyperglycemia Qualified Code(s): E11.65 - Type 2 diabetes mellitus with hyperglycemia; Z79.4 - intermission coordinator (current) use of insulin Plan: a1c 6.4 10/09/24. Managed with oral and injectable (GLp-1). Symptom pattern supports med-related nausea; consider benefit:risk with glycemic control. Additional Testing: - Symptom monitoring, reassess after gastric emptying study. Medications: - Continue GLP-1 agonist as prescribed by endocrinology/PCP. - Consider dose timing or antiemetic only if symptoms escalate. Lifestyle Recommendations: - Small, frequent meals after injection days; avoid high-fat or large-volume meals. Referrals / Coordination: - Coordinate with prescribing provider if worsening. Follow-Up Plan: - Symptom diary for pattern/severity if worsens. Plan Follow-up after imaging or sooner as needed Time: I spent a total of 25 minutes on the date of encounter which includes: Preparing to see the patient (reviewed previous documentation, test results and medical history) Performing a medically appropriate exam and/or evaluation Ordering medications, tests, and procedures Documenting clinical information in the health record Orders: Orders NM gastric emptying study Today E11.65 - Type 2 diabetes mellitus with hyperglycemia, K21.9 - Gastro-esophageal reflux disease without esophagitis, Z79.4 - intermission coordinator (current) use of insulin Medications: Refilled polyethylene glycol 3350 (Miralax) Take 17G (one cap full) daily with 8oz of water 17 grams PO DAILY 510 grams 2RF constipation 30 days Coding Level of Care Code Established Pt Est Pt Level 3 (69727) Patient Type Established Diagnoses Gastroesophageal reflux disease without esophagitis K21.9 Esophagitis presence: without esophagitis Constipation, unspecified constipation type K59.00 Constipation type: unspecified constipation type Type 2 diabetes mellitus with hyperglycemia, with long-term current use of insulin E11.65; Z79.4 Diabetes mellitus intermission coordinator insulin use: with mcc use Diabetes mellitus complication status: with hyperglycemia
[2025-05-31 12:53] VITALS: BP 106/58; PULSE 62; O2SAT 99; BMI 26.3
--- OUTSIDE RECORDS SUMMARY | 2025-05-31 14:25 | XMS_ITS | Clinical Summary ---
Author Organization [facility] Address [address] [place] [address] Care Team Providers Care Disc Jockey Name Role Phone Unavailable Primary Care Provider [...] Active Problems Problem Noted Date Diagnosed Date Dental calculus 05/15/2025 Teeth missing 05/15/2025 Malocclusion 05/15/2025 Periodontal disease 05/15/2025 Ill-fitting dentures 05/15/2025 Intramural uterine fibroid 02/05/2022 Overweight (BMI 25.0-29.9) [...] Encounters Date Type Department Care Team Description 05/15/2025 1:30 PM EDT Office Visit [facility] [address] [place] [address] Smita Case Dental calculus (Primary Dx); Teeth missing; Periodontal disease; Ill-fitting dentures; Secondary dental caries 05/12/2025 Travel from Last 3 Months Social History Tobacco Use Types Packs/Day Years Used Date Smoking Tobacco: Never Smokeless Tobacco: Never Tobacco Cessation:Counseling Given: Not Answered Alcohol Use Standard Drinks/Week [...] Sign Reading Time Taken Comments Blood Pressure 126/72 05/15/2025 1:11 PM EDT Pulse - - Temperature - - Respiratory Rate - - Oxygen Saturation - - Inhaled Oxygen Concentration - - Weight - - Height - - Body Mass Index - - Plan of Treatment Upcoming Encounters Date Type Department Care Team (Late st Contact Info) Description 11/18/2025 12:45 PM EDT Office Visit [facility] [address] [place] [address] Evie, Smita [address] [place] [address] Health Maintenance Due Date Last Done Comments [...] Mammogram 03/05/2024 03/05/2022 COVID-19 Vaccine ( season) 2025 03/08/2022, 01/28/2021, 12/31/2020 Dental Oral Exam 11/14/2025 05/15/2025, 05/2024, 08/16/2023 Dental Prophylaxis 11/14/2025 05/15/2025, 1 , 08/16/2023 Tobacco Screening 05/15/2026 05/15/2025 Dental X-Ray: Bitewings 05/16/2026 05/15/2025, 08/16 Dental X-Ray: Full Mouth 08/17/2026 08/16/2023 RSV Patients and Patients Aged 60 years or older (1 - 1-dose 75+ series) 09/28/2047 HIV Screening Completed 11/17/2021 Zoster Vaccines Completed 12/25/2022, 10/28/2022 Influenza Vaccine Completed 05/02/2025, , 05/03/2023, Additional history exists HIB Vaccines Aged Out [...] Procedure Name Priority Date/Time Associated Diagnosis Comments PERIODIC ORAL EVALUATION - ESTABLISHED PATIENT Routine 05/15/2025 1:30 PM EDT PROPHYLAXIS - ADULT Routine 05/15/2025 1 :30 PM EDT Dental calculus Periodontal disease BITEWINGS - 4 RADIOGRAPHIC IMAGES Routine 05/15/2025 1:30 PM EDT Dental calculus Teeth missing Periodontal disease ORAL HYGIENE INSTRUCTIONS Routine 05/15/2025 1:30 PM EDT Dental calculus Teeth missing Periodontal disease INTRAORAL - PERIAPICAL EACH ADDITIONAL RADIOGRAPHIC IMAGE Routine 05/15/2025 1:30 PM EDT Dental calculus Teeth missing Periodontal disease INTRAORAL - PERIAPICAL EACH ADDITIONAL RADIOGRAPHIC IMAGE Routine 05/15/2025 1:30 PM EDT Dental calculus Teeth missing Periodontal disease INTRAORAL - PERIAPICAL FIRST RADIOGRAPHIC IMAGE Routine 05/15/2025 1:30 PM EDT Dental calculus Teeth missing Periodontal disease 31,30,19,18 PARTIAL DENTURE - RESIN Routine 05/15/2025 12:00 AM EDT INTRAORAL - COMPLETE SERIES OF RADIOGRAPHIC IMAGES Routine 08/16/2023 1:00 PM EST Dental caries Closed fracture of tooth, initial encounter Supraeruption of teeth Teeth missing from Last 3 Months or Most Recently Relevant to Health Maintenance Insurance [facility] MEDICAID [facility] ADULT [facility] - [employer]
== END 2025-05-31 13:20 | disposition home or self-care (01) ==
LOC: HO.HGI 12:05
PROVIDERS: PCP Physician Assistant; Visit Provider Nurse Practitioner Family
DX: K21.9 Gastro-esophageal reflux disease without esophagitis (principal); K59.00 Constipation, unspecified; E11.65 Type 2 diabetes mellitus with hyperglycemia; Z79.4 Long term (current) use of insulin
CPT/HCPCS: 99213

== ENCOUNTER → 2025-05-31 12:04 | Outpatient (BNVA) | payer MEDICARE, MEDICAID, SELFPAY | PROVIDERS: PCP Physician Assistant; Visit Provider Nurse Practitioner Family | DX: K21.9 Gastro-esophageal reflux disease without esophagitis (principal); K59.00 Constipation, unspecified; E11.65 Type 2 diabetes mellitus with hyperglycemia; Z79.4 Long term (current) use of insulin | CPT/HCPCS: 99212 ==

== ENCOUNTER → 2025-06-27 08:01 | Outpatient (REF) | payer MEDICARE, MEDICAID, SELFPAY ==
--- NOTE | ~2025-06-27 | NM_ITS ---
EXAMINATION: DE RADIONUCLIDE SOLID FOOD GASTRIC EMPTYING 4-HOUR STUDY CLINICAL INFORMATION: K21.9 - Gastro-esophageal reflux disease without esophagitis COMPARISON: There are no prior studies available for comparison. TECHNIQUE: A standard meal consisting of 4 oz of Egg Beaters brand tagged with 1 mCi Tc-99m Sulfur Colloid, 6 oz water and 2 slices of toast with jelly was administered orally to the patient. Images were obtained using a dual head gamma camera in the anterior and posterior projections over of the stomach immediately post ingestion and at hourly intervals up to 4 hours post ingestion. The anterior and posterior counts at each time interval were averaged using the geometric mean and expressed as percentage of the immediate post ingestion counts. FINDINGS: There is visualization of activity in the stomach immediately post ingestion. As the study progresses, there is clearance of activity from the stomach and visualization of progressively increasing small bowel activity. Retention in the stomach at each time interval was: 1 hour 85% (normal 37%-90%) 2 hours 63% (normal 30%-60%) 3 hours 37% 4 hours 13% (normal 0%-10%) DE/DE gastric emptying study IMPRESSION: Minimally delayed gastric emptying. For solid meal, rapid gastric emptying is less than 30% at 60 minutes. Delayed gastric emptying criteria is more than 60% remaining at 120 minutes or more than 10% at 240 minutes. The 4-hour value is the best discriminator of a normal or abnormal result. Gastric emptying study grading per JNMT Consensus Recommendations in 2008 (https://tech.snmjournals.org/content/36/1/44) Grade 1 (mild retention): 11-20% at 4h Grade 2 (moderate retention): 21-35% at 4h Grade 3 (severe retention): 36-50% at 4h Grade 4 (very severe retention): >50% retention at 4h Electronically signed by: Ricky García MD 06/27/2025 12:42 PM [facility]
--- OUTSIDE RECORDS SUMMARY | 2025-06-27 08:07 | XMS_ITS | Clinical Summary ---
Author Organization [facility] Address [address] [place] [address] Care Team Providers Care Finishing Wire Sawyer Name Role Phone Unavailable Primary Care Provider [...] Description 05/15/2025 1:30 PM EDT Office Visit [facility] [address] [place] [address] Smita Case Dental calculus (Primary Dx); Teeth [...] Care Team (Late st Contact Info) Description 07/01/2025 3:00 PM EST Office Visit [facility] [address] [place] [address] [facility] [address] [place] [address] 11/18/2025 12:45 PM EDT Office Visit [facility] [address] [place] [address] [facility] [address] [place] [address] Health Maintenance Due Date Last Done Comments [...] 1993 Cervical Cancer Screening 2002 HPV/Cotest 2002 RSV Patients and Patients Aged 60 years or older (1 - Risk 50-74 years 1-dose series) 2022 Diabetes: Urine Protein Screening 11/17/2022 11/17/2021 Mammogram 03/05/2024 03/05/2022 COVID-19 Vaccine ( season) 2025 03/08/2022, 01/28/2021, 12/31/2020 Dental Oral Exam 11/14/2025 05/15/2025, 05/2024, 08/16/2023 Dental Prophylaxis 11/14/2025 05/15/2025, 1 , 08/16/2023 Tobacco Screening 05/15/2026 05/15/2025 Dental X-Ray: Bitewings 05/16/2026 05/15/2025, 08/16 Dental X-Ray: Full Mouth 08/17/2026 08/16/2023 HIV Screening Completed 11/17/2021 Zoster Vaccines Completed [...] Most Recently Relevant to Health Maintenance Insurance [facility] MEDICAID STAND ADULT DENTAL - [employer] DENTAL
== END ==
LOC: HO.NUCMED 08:01
PROVIDERS: PCP Physician Assistant; Visit Provider Nurse Practitioner Family
DX: K21.9 Gastro-esophageal reflux disease without esophagitis (principal); E11.65 Type 2 diabetes mellitus with hyperglycemia; Z79.4 Long term (current) use of insulin
CPT/HCPCS: 78264; A9541

== ENCOUNTER → 2025-06-27 08:03 | Outpatient (BNV) | payer MEDICARE, MEDICAID, SELFPAY | PROVIDERS: PCP Physician Assistant; Visit Provider Radiology Diagnostic Radiology | DX: K21.9 Gastro-esophageal reflux disease without esophagitis (principal) | CPT/HCPCS: 78264 ==